=== PATIENT | male | born 1940 ===

== ENCOUNTER 2020-04-21 10:57 | Inpatient (IN) | payer MEDICARE ==
--- NOTE | 2020-04-22 07:29 | History and Physical Report ---
GP History & Physical - History of Present Illness Date of admission: 04/21/20 Date of Examination: 04/22/20 Reason for Admission: Danger to self, Danger to others, Impaired reality testing Chief Complaint: Aggression History of Present Illness: Nurse Admission note: It was reported, pt had aggressive behavior toward step son, carrying knives around and had increased confusion. pt had increase agitation and aggressive behavior after his fell and broke her hip. pt unable to care for himself Description of failure of outpatient attempts at stabilization in previous setting list behavior and medication trials: [ After his required surgery for broken hip, pt was living at home alone and unable to care for himself safely. It was reported pt was eating cat food and attempting to drive a car. Behaviors and assessment findings upon admission: [pt admitted to the unit A&O to self, confused and disorganized. pt scored 10/30 on his MM. Upon arrival, pt immediately started exit seeking and looking for his and his mother. When asked what brings you to [facility], pt states "I'm here with my mom". pt has mild bruising to his lt eye w/ lt eye redness noted from a previous fall before he came to our facility, skin is otherwise intact. At this time, pt's gait is steady, but he is a high falls risk R/t previous fall w/in last 3 months, yellow armband has been applied. v/s stable, redirection given frequently, close monitoring initiated. HPI Patient is retired 80-year-old male with medical history of dementia who was admitted for dementia with behavioral disturbances after he was seen at home currently lives around with increased confusion and agitation and aggressive behavior. Patient states he does not remember what I observe that he used to do, reports having 3 kids and 1 of them is currently Dr. lives in [facility]. Patient reports being forgetful and not remembering details of event that happened, I informed patient he has been diagnosed with dementia and sometimes may have moments of clarity as sometimes he may not and can also be aggressive towards familial faces whom he may think her strangers. Patient asked me what causes dementia and if diet contributed to it because he works out almost every day and has no medical problems. Patient states he feels pretty well today, says he likes to exercise, endorses sleeping in just like a baby and reports good appetite and that he is currently hungry at the moment ready for breakfast. Patient says I have no guns or weapons but I do have knifes at home PAST PSYCHIATRIC HISTORY: Diagnoses: Dementia Suicide attempts or Self-harm behavior: Yes recent episode Prior psychiatric hospitalizations: noen reported Substance Abuse history: none reported Previous psychiatric medications tried: none reported Outpatient treatment: none reported PAST MEDICAL HISTORY: none reported Family Psychiatric History: None reported or documented SOCIAL HISTORY Marital Status: Living Arrangements: Lives at home Employment Status: retired Access to guns/weapons: Patient says I have no guns or weapons but I do have knifes at home Education:Part college History of Abuse: none reported Legal History: none reported REVIEW OF SYSTEMS Constitutional: Negative for weight loss ENT: Negative for stridor Respiratory: Negative for cough or hemoptysis All other systems reviewed and are negative MENTAL STATUS EXAMINATION General Appearance and Behavior: Age appropriate, good hygiene, wearing appropriate clothes, lying in bed, good eye contact, cooperative polite with questioning. Cooperation: Participating/engaged Psychomotor Behavior: unremarkable and within normal limits Mood: Good Affect and affective range: congruent with mood Thought Process: Fluent/Logical Thought Content: Within reality Speech: Normal volume, Regular rate and rhythm Intellectual Functioning: Average Suicidal Ideation: Denies SI Homicidal Ideation: Denies HI Impulse Control: Impaired Insight and Judgment: Limited insight and judgment Memory: Poor with intermittent perioid of luciditiy Attention: Normal Orientation: Alert, oriented Diagnoses: Assessment and Plan - Psychiatric problem (1) Dementia with behavioral disturbance Current Visit: Yes Status: Acute Treatment Plan Patient started on risperidone Patient will be admitted for inpatient psychiatric evaluation, medication adjustment and close monitoring The patient's behavior, mood, sleep and appetite will be closely monitored. Patient will be enrolled in individual and group therapeutic sessions and encouraged to attend. Patient will be provided with a safe and structured environment. Patient's physical health needs will be addressed by the Hospitalist. Hospitalist Consulted Labs including CBC, CMP, Lipid profile and Hemoglobin A1C ordered Social Assessment will be completed and the Animal Services Officer will work with patient and family to ensure a suitable and safe disposition Medication adjustment will be made as clinically indicated Usual Wellness Sikhism/Preservation: - Start Trazodone 50 mg po QHS & 50 mg po QHS PRN between 10 PM & 2 AM for insomnia - Start Melatonin 5 mg po QHS to promote circadian rhythm - Start [place]-3 for brain health, reduce impulsivity, and as adjunctive treatment for mood disorder, continue upon discharge given overall benefits. - Start B1 prophylaxis with 200 mg po for 5 days The patient agreed on the treatment plan, understood the risk, benefit, alternative treatment, potential consequence of no treatment, and gave informed consent. Initial Certification This is an acknowledgement statement that RAJINDER JUNE is a 80 year old M who requires inpatient psychiatric admission for treatment which could reasonably be expected to improve the patient's condition for Estimated period of time patient will need to remain in the hospital: [7 ] Plan for post-hospital care: [ outpt] Legal Status: Voluntary Patient Problems: Current Active Problems Dementia with behavioral disturbance (Acute) Reaction to Hospitalization: Accepting Medications and Allergies Allergies Allergy/AdvReac Type Severity Reaction Status Date / Time No Known Allergies Allergy Verified 04/21/20 11:22 Results - Results Labs/Vitals: Laboratory Last Values POC Glucose 108 (70-105) H 04/21/20 16:03 Last Vital Signs Temp 98.2 F 04/21/20 22:00 Pulse 82 04/21/20 22:00 Resp 20 04/21/20 22:00 BP 127/75 04/21/20 22:00 Pulse Ox 98 04/21/20 22:00 Physical Examination - Constitutional Vitals: Vital Signs Temp Pulse Resp BP Pulse Ox 98.2 F 82 20 127/75 98 04/21/20 22:00 04/21/20 22:00 04/21/20 22:00 04/21/20 22:00 04/21/20 22:00 Temperature -Last 24 Hours Temperature 98.2 F Temperature 98.3 F Mental Status Exam - Vital signs Last Vital Signs Temp 98.2 F 04/21/20 22:00 Pulse 82 04/21/20 22:00 Resp 20 04/21/20 22:00 BP 127/75 04/21/20 22:00 Pulse Ox 98 04/21/20 22:00 Assessment and Plan - Psychiatric problem (1) Dementia with behavioral disturbance Current Visit: Yes Status: Acute Physician Certification - Certification Statement Physician Certification Statement: This is an acknowledgement statement that RAJINDER JUNE is a 80 year old M who requires inpatient psychiatric admission for treatment which could reasonably be expected to improve the patient's condition for Estimated period of time patient will need to remain in the hospital: [ ] Plan for post-hospital care: [ ]
[2020-04-22] MEDS: OMEGA-3 FATTY ACIDS/FISH OIL 1 GRAM CAP PO SCH ×2 (11:35→23:01)
[2020-04-22] MEDS: risperiDONE 0.25 MG TAB PO SCH ×2 (11:36→23:01)
--- NOTE | 2020-04-22 18:38 | Consultation ---
History of Present Illness - Reason for Consult Consult date: 04/22/20 Medical consult Requesting physician: ASHUTOSH ACEVEDO - History of Present Illness Patient was admitted to inpatient psych for aggressive behavior danger to self and danger to others Hospitalist service was requested for medical consult As seen and examined the patient Patient denies any medical problems denies diabetes, hypertension or coronary artery disease Denies taking any medications at home The time of my evaluation denies chest pain or shortness of breath, denies headache or dizziness Denies nausea vomiting or abdominal pain Past History Past Medical History: denies: diabetes, hypertension Past Surgical History: denies: No surgical history Social history: lives with family. denies: smoking, prescription drug abuse Family history: denies: no significant family history Medications and Allergies Allergies Allergy/AdvReac Type Severity Reaction Status Date / Time No Known Allergies Allergy Verified 04/21/20 11:22 Home Medications Medication Instructions Recorded Confirmed Last Taken Type Melatonin [Melatonin 5MG CAP] 5 mg PO PRN PRN 04/22/20 04/22/20 2 Days Ago History ~04/20/20 5 mg Active Meds: Active Medications Fish Oil (Fish Oil) 2,000 mg PO BID [facility] Last Admin: 04/22/20 11:35 Dose: 2,000 mg Documented by: Risperidone (Risperdal) 0.5 mg PO BID [facility] Last Admin: 04/22/20 11:36 Dose: 0.5 mg Documented by: Trazodone HCl (Desyrel) 50 mg PO QHS [facility] Review of Systems Constitutional: no weight loss, no weight gain, no fever, no chills Ears, nose, mouth and throat: no nasal congestion, no nasal discharge Cardiovascular: no chest pain, no orthopnea Respiratory: no cough with sputum, no shortness of breath Gastrointestinal: no nausea, no vomiting Genitourinary Male: no dysuria, no hematuria Musculoskeletal: no myalgias, no arthritis Integumentary: no rash, no lesions Neurological: no weakness, no numbness Psychiatric: other (Aggressive behavior), no anxiety, no depression Endocrine: no cold intolerance, no heat intolerance Hematologic/Lymphatic: no easy bruising, no easy bleeding Allergic/Immunologic: no urticaria, no allergic rhinitis Exam - Constitutional Vitals: Temp Pulse Resp BP Pulse Ox 97.3 F L 61 20 122/60 98 04/22/20 08:28 04/22/20 08:28 04/22/20 08:28 04/22/20 08:28 04/21/20 22:00 General appearance: Present: no acute distress, well-nourished - EENT Eyes: Present: PERRL, EOM intact - Neck Neck: Present: supple, normal ROM - Respiratory Respiratory effort: normal Respiratory: bilateral: diminished, negative: rales, rhonchi, wheezing - Cardiovascular Rhythm: regular Heart Sounds: Present: S1 & S2 - Extremities Extremities: no ischemia, No edema - Abdominal General gastrointestinal: Present: soft, non-tender, non-distended, normal bowel sounds - Integumentary Integumentary: Present: clear, warm - Musculoskeletal Musculoskeletal: strength equal bilaterally - Psychiatric Psychiatric: appropriate mood/affect, cooperative - Neurologic Neurologic: moves all extremities Results - Labs CBC & Chem 7: 04/23/20 04:53 04/23/20 04:53 Assessment and Plan --Dementia; management per psych --History of suicidal attempt harmful behavior; management per psych --DVT prophylaxis; SCDs while resting --Full CODE STATUS Continue current management Patient has no medical conditions/illness Thank you for this consultation We will follow the patient along with you as needed basis
[2020-04-22] MEDS: traZODone 50 MG TAB PO SCH (23:01)
[2020-04-23 05:18] LABS: Hematocrit 43.5 % (35.5-45.6); Hemoglobin 14.2 gm/dl (11.8-15.2); Mean Corpuscular HGB Conc 33 % (32-34); Mean Corpuscular Volume 94 fl (84-94); Platelet Count 626 K/mm3 (140-440); Red Blood Count 4.65 M/mm3 (3.65-5.03); Red Cell Distribution Width 13.7 % (13.2-15.2)
[2020-04-23 05:47] LABS: Alanine Aminotransferase 15 units/L (7-56); Albumin 3.8 g/dL (3.9-5); BUN/Creatinine Ratio 24; Blood Urea Nitrogen 22 mg/dL (9-20); Calcium 8.9 mg/dL (8.4-10.2); Hemolysis Index 3
[2020-04-23 06:27] LABS: Chol/HDL Ratio 3.71 %; HDL Cholesterol 45 mg/dL (40-59); LDL Cholesterol,Direct 121 mg/dL (50-130)
--- NOTE | 2020-04-23 07:22 | Progress Note ---
Subjective Date of service: 04/23/20 Principal diagnosis: (1) Dementia with behavioral disturbance Subjective Comment: Nurse Note: Pt is more calm this shift, still confused and paces about hallway occasionally, pt compliant with medications, and group, eat 100% meals. Pt interacting well with selected peers, no distress noted, will continue to monitor. PSYCH HPI Patient seen this AM and interviewed by me in the room, was seen resting comfortably when I walked in. Patient alert to verbal stimuli, reports not feeling good this AM, says his having a Headache and also had a rough night with poor sleep. Patient endorses good appetite, denies hearing voices or seeing things at night. Reason for continuing inpatient psychiatric hospitalization: Patient pacing and disorganized as reported by nurses. Patient has never been on antipsychotics before, will need to be titrated slowly and observe for mood stability inpatient REVIEW OF SYSTEMS Constitutional: Negative for weight loss ENT: Negative for stridor Respiratory: Negative for cough or hemoptysis All other systems reviewed and are negative MENTAL STATUS EXAMINATION General Appearance and Behavior: Age appropriate, good hygiene, wearing appropriate clothes, lying in bed, good eye contact, cooperative polite with questioning. Cooperation: Participating/engaged Psychomotor Behavior: unremarkable and within normal limits Mood: not good Affect and affective range: congruent with mood Thought Process: Fluent/Logical Thought Content: Within reality Speech: Normal volume, Regular rate and rhythm Intellectual Functioning: Average Suicidal Ideation: Denies SI Homicidal Ideation: Denies HI Impulse Control: Impaired Insight and Judgment: Limited insight and judgment Memory: Poor with intermittent perioid of luciditiy Attention: Normal Orientation: Alert, oriented Diagnoses: Assessment and Plan - Psychiatric problem (1) Dementia with behavioral disturbance Current Visit: Yes Status: Acute Treatment Plan Patient started on risperidone yesterday will titrate up slowly and observe for dose response. Patient on Melatonin YAHIR 5mg for improved sleep. Further medication adjustment to be made as indicated Patient will be admitted for inpatient psychiatric evaluation, medication adjustment and close monitoring The patient's behavior, mood, sleep and appetite will be closely monitored. Patient will be enrolled in individual and group therapeutic sessions and encouraged to attend. Patient will be provided with a safe and structured environment. Patient's physical health needs will be addressed by the Hospitalist. Hospitalist Consulted Labs including CBC, CMP, Lipid profile and Hemoglobin A1C ordered Social Assessment will be completed and the Body Shop Floorperson will work with patient and family to ensure a suitable and safe disposition Medication adjustment will be made as clinically indicated Usual Wellness Mormon/Preservation: - Start Trazodone 50 mg po QHS & 50 mg po QHS PRN between 10 PM & 2 AM for insomnia - Start Melatonin 5 mg po QHS to promote circadian rhythm - Start [place]-3 for brain health, reduce impulsivity, and as adjunctive treatment for mood disorder, continue upon discharge given overall benefits. - Start B1 prophylaxis with 200 mg po for 5 days The patient agreed on the treatment plan, understood the risk, benefit, alternative treatment, potential consequence of no treatment, and gave informed consent. Initial Certification This is an acknowledgement statement that RAJINDER JUNE is a 80 year old M who requires inpatient psychiatric admission for treatment which could reasonably be expected to improve the patient's condition for Estimated period of time patient will need to remain in the hospital: [7 ] Plan for post-hospital care: [outpt] Assessment and Plan - Patient Problems (1) Dementia with behavioral disturbance Current Visit: Yes Status: Acute Medications and Allergies Allergies Allergy/AdvReac Type Severity Reaction Status Date / Time No Known Allergies Allergy Verified 04/21/20 11:22 Home Medications Medication Instructions Recorded Confirmed Last Taken Type Melatonin [Melatonin 5MG CAP] 5 mg PO PRN PRN 04/22/20 04/22/20 2 Days Ago History ~04/20/20 5 mg Active Meds: Active Medications Fish Oil (Fish Oil) 2,000 mg PO BID [facility] Last Admin: 04/22/20 23:01 Dose: 2,000 mg Documented by: Risperidone (Risperdal) 0.5 mg PO BID [facility] Last Admin: 04/22/20 23:01 Dose: 0.5 mg Documented by: Trazodone HCl (Desyrel) 50 mg PO QHS [facility] Last Admin: 04/22/20 23:01 Dose: 50 mg Documented by: Results - Results Labs/Vitals: Laboratory Last Values WBC 6.8 K/mm3 (4.5-11.0) 04/23/20 04:53 RBC 4.65 M/mm3 (3.65-5.03) 04/23/20 04:53 Hgb 14.2 gm/dl (11.8-15.2) 04/23/20 04:53 Hct 43.5 % (35.5-45.6) 04/23/20 04:53 MCV 94 fl (84-94) 04/23/20 04:53 MCH 31 pg (28-32) 04/23/20 04:53 MCHC 33 % (32-34) 04/23/20 04:53 RDW 13.7 % (13.2-15.2) 04/23/20 04:53 Plt Count 626 K/mm3 (140-440) H 04/23/20 04:53 [place] % (Auto) Flake Cutter Operator 04/23/20 04:53 Sodium 140 mmol/L (137-145) 04/23/20 04:53 Potassium 4.6 mmol/L (3.6-5.0) 04/23/20 04:53 Chloride 106.0 mmol/L (98-107) 04/23/20 04:53 Carbon Dioxide 26 mmol/L (22-30) 04/23/20 04:53 Anion Gap 13 mmol/L 04/23/20 04:53 BUN 22 mg/dL (9-20) H 04/23/20 04:53 Creatinine 0.9 mg/dL (0.8-1.5) 04/23/20 04:53 Estimated GFR > 60 ml/min 04/23/20 04:53 BUN/Creatinine Ratio 24 % 04/23/20 04:53 Glucose 113 mg/dL (75-100) H 04/23/20 04:53 POC Glucose 108 (70-105) H 04/21/20 16:03 Hemoglobin A1c 5.4 % (4-6) 04/23/20 04:53 Calcium 8.9 mg/dL (8.4-10.2) 04/23/20 04:53 Total Bilirubin 0.60 mg/dL (0.1-1.2) 04/23/20 04:53 AST 15 units/L (5-40) 04/23/20 04:53 ALT 15 units/L (7-56) 04/23/20 04:53 Alkaline Phosphatase 50 units/L (35-129) 04/23/20 04:53 Total Protein 5.9 g/dL (6.3-8.2) L 04/23/20 04:53 Albumin 3.8 g/dL (3.9-5) L 04/23/20 04:53 Albumin/Globulin Ratio 1.8 % 04/23/20 04:53 Triglycerides 67 mg/dL (2-149) 04/23/20 04:53 Cholesterol 167 mg/dL (50-199) 04/23/20 04:53 LDL Cholesterol Direct 121 mg/dL (50-130) 04/23/20 04:53 HDL Cholesterol 45 mg/dL (40-59) 04/23/20 04:53 Cholesterol/HDL Ratio 3.71 % 04/23/20 04:53 TSH 2.490 mlU/mL (0.270-4.200) 04/23/20 04:53 Thyroxine (T4) 7.8 ug/dL (4.0-12.0) 04/23/20 04:53 Last Vital Signs Temp 97.3 F L 04/22/20 08:28 Pulse 61 04/22/20 08:28 Resp 20 04/22/20 08:28 BP 122/60 04/22/20 08:28 Pulse Ox 98 04/21/20 22:00
[2020-04-23 07:33] LABS: Anisocytosis 1+; Basophils % (Manual) 0 % (0.0-1.8); Total Cells Counted 100
[2020-04-23 07:34] LABS: Platelet Estimate Consistent w Auto
[2020-04-23] MEDS: OMEGA-3 FATTY ACIDS/FISH OIL 1 GRAM CAP PO SCH ×2 (11:07→21:27)
[2020-04-23] MEDS: risperiDONE 0.25 MG TAB PO SCH ×2 (11:08→21:27)
[2020-04-23] MEDS: traZODone 50 MG TAB PO SCH (21:27)
[2020-04-23] MEDS: MELATONIN 5 MG TAB PO SCH (21:27)
--- NOTE | 2020-04-24 09:51 | Progress Note ---
Subjective Date of service: 04/24/20 Principal diagnosis: (1) Dementia with behavioral disturbance Subjective Comment: The patient's medical record was reviewed and the patient's progress was discussed with the nursing staff. The nurse note states the patient slept for 6hrs during the night, confused, got up several times asking for his mother. During my interview with the patient this morning, he is lying in bed, awake. He is confused. He is irritable. He says he feels "terrible." The patient says "this is the most miserable time of my life." He then says, "I don't know where my is or my check." He says "nothing is working out." The patient denies hallucinations of any kind. He also denies SI/HI. Reason for continued inpatient treatment: The patient irritable and paces, and is unable to care for himself. Will continue to stabilize and plan for a safe discharge. REVIEW OF SYSTEMS Constitutional: Negative for weight loss ENT: Negative for stridor Respiratory: Negative for cough or hemoptysis All other systems reviewed and are negative MENTAL STATUS EXAMINATION General Appearance: Dressed appropriately Behavior: Irritable, cooperative Mood: "terrible" Affect and affective range: Restricted Speech: Normal tone and pace Thought Process: Impaired Thought Content Suicidal Ideation: Denies SI Homicidal Ideation: Denies HI Hallucinations: Denies Delusions: None elicited Insight and Judgment: Limited insight and judgment Memory/Cognition: Impaired Assessment (1) Dementia with behavioral disturbance Current Visit: Yes Status: Acute Treatment Plan Patient will be admitted for inpatient psychiatric evaluation, medication adjustment and close monitoring The patient's behavior, mood, sleep and appetite will be closely monitored. Patient will be enrolled in individual and group therapeutic sessions and encouraged to attend. Patient will be provided with a safe and structured environment. Patient's physical health needs will be addressed by the Hospitalist. Hospitalist Consulted Labs including CBC, CMP, Lipid profile and Hemoglobin A1C ordered Social Assessment will be completed and the Water Safety Teacher will work with patient and family to ensure a suitable and safe disposition Medication adjustment will be made as clinically indicated Usual Wellness [place]/Preservation: - Start Trazodone 50 mg po QHS & 50 mg po QHS PRN between 10 PM & 2 AM for insomnia - Start Melatonin 5 mg po QHS to promote circadian rhythm - Start [place]-3 for brain health, reduce impulsivity, and as adjunctive treatment for mood disorder, continue upon discharge given overall benefits. - Start B1 prophylaxis with 200 mg po for 5 days The patient agreed on the treatment plan, understood the risk, benefit, alternative treatment, potential consequence of no treatment, and gave informed consent. Estimated period of time patient will need to remain in the hospital: [5] Plan for post-hospital care: [outpt] Medications and Allergies Allergies Allergy/AdvReac Type Severity Reaction Status Date / Time No Known Allergies Allergy Verified 04/21/20 11:22 Home Medications Medication Instructions Recorded Confirmed Last Taken Type Melatonin [Melatonin 5MG CAP] 5 mg PO PRN PRN 04/22/20 04/22/20 2 Days Ago History ~04/20/20 5 mg Active Meds: Active Medications Fish Oil (Fish Oil) 2,000 mg PO BID [facility] Last Admin: 04/23/20 21:27 Dose: 2,000 mg Documented by: Melatonin (Melatonin) 5 mg PO QHS [facility] Last Admin: 04/23/20 21:27 Dose: 5 mg Documented by: Risperidone (Risperdal) 0.5 mg PO BID [facility] Last Admin: 04/23/20 21:27 Dose: 0.5 mg Documented by: Trazodone HCl (Desyrel) 50 mg PO QHS [facility] Last Admin: 04/23/20 21:27 Dose: 50 mg Documented by: Results - Results Labs/Vitals: Laboratory Last Values WBC 6.8 K/mm3 (4.5-11.0) 04/23/20 04:53 RBC 4.65 M/mm3 (3.65-5.03) 04/23/20 04:53 Hgb 14.2 gm/dl (11.8-15.2) 04/23/20 04:53 Hct 43.5 % (35.5-45.6) 04/23/20 04:53 MCV 94 fl (84-94) 04/23/20 04:53 MCH 31 pg (28-32) 04/23/20 04:53 MCHC 33 % (32-34) 04/23/20 04:53 RDW 13.7 % (13.2-15.2) 04/23/20 04:53 Plt Count 626 K/mm3 (140-440) H 04/23/20 04:53 [place] % (Auto) Loan Servicing Officer 04/23/20 04:53 Add Manual Diff Complete 04/23/20 04:53 Total Counted 100 04/23/20 04:53 Seg Neuts % (Manual) 75.0 % (40.0-70.0) H 04/23/20 04:53 Band Neutrophils % 0 % 04/23/20 04:53 Lymphocytes % (Manual) 11.0 % (13.4-35.0) L 04/23/20 04:53 Reactive Lymphs % (Man) 0 % 04/23/20 04:53 Monocytes % (Manual) 8.0 % (0.0-7.3) H 04/23/20 04:53 Eosinophils % (Manual) 6.0 % (0.0-4.3) H 04/23/20 04:53 Basophils % (Manual) 0 % (0.0-1.8) 04/23/20 04:53 Metamyelocytes % 0 % 04/23/20 04:53 Myelocytes % 0 % 04/23/20 04:53 Promyelocytes % 0 % 04/23/20 04:53 Blast Cells % 0 % 04/23/20 04:53 Nucleated RBC % Not Reportable 04/23/20 04:53 Seg Neutrophils # Man 5.1 K/mm3 (1.8-7.7) 04/23/20 04:53 Band Neutrophils # 0.0 K/mm3 04/23/20 04:53 Lymphocytes # (Manual) 0.7 K/mm3 (1.2-5.4) L 04/23/20 04:53 Abs React Lymphs (Man) 0.0 K/mm3 04/23/20 04:53 Monocytes # (Manual) 0.5 K/mm3 (0.0-0.8) 04/23/20 04:53 Eosinophils # (Manual) 0.4 K/mm3 (0.0-0.4) 04/23/20 04:53 Basophils # (Manual) 0.0 K/mm3 (0.0-0.1) 04/23/20 04:53 Metamyelocytes # 0.0 K/mm3 04/23/20 04:53 Myelocytes # 0.0 K/mm3 04/23/20 04:53 Promyelocytes # 0.0 K/mm3 04/23/20 04:53 Blast Cells # 0.0 K/mm3 04/23/20 04:53 WBC Morphology Not Reportable 04/23/20 04:53 Hypersegmented Neuts Not Reportable 04/23/20 04:53 Hyposegmented Neuts Not Reportable 04/23/20 04:53 Hypogranular Neuts Not Reportable 04/23/20 04:53 Smudge Cells Not Reportable 04/23/20 04:53 Toxic Granulation Not Reportable 04/23/20 04:53 Toxic Vacuolation Not Reportable 04/23/20 04:53 Dohle Bodies Not Reportable 04/23/20 04:53 Pelger-Huet Anomaly Not Reportable 04/23/20 04:53 Kyle Rods Not Reportable 04/23/20 04:53 Platelet Estimate Consistent w auto 04/23/20 04:53 Clumped Platelets Not Reportable 04/23/20 04:53 Plt Clumps, EDTA Not Reportable 04/23/20 04:53 Large Platelets Not Reportable 04/23/20 04:53 Giant Platelets Not Reportable 04/23/20 04:53 Platelet Satelliting Not Reportable 04/23/20 04:53 Plt Morphology Comment Not Reportable 04/23/20 04:53 RBC Morphology Not Reportable 04/23/20 04:53 Dimorphic RBCs Not Reportable 04/23/20 04:53 Polychromasia Not Reportable 04/23/20 04:53 Hypochromasia Not Reportable 04/23/20 04:53 Poikilocytosis Not Reportable 04/23/20 04:53 Anisocytosis 1+ 04/23/20 04:53 Microcytosis Not Reportable 04/23/20 04:53 Macrocytosis Not Reportable 04/23/20 04:53 Spherocytes Not Reportable 04/23/20 04:53 Pappenheimer Bodies Not Reportable 04/23/20 04:53 Sickle Cells Not Reportable 04/23/20 04:53 Target Cells Not Reportable 04/23/20 04:53 Tear Drop Cells Not Reportable 04/23/20 04:53 Ovalocytes Not Reportable 04/23/20 04:53 Helmet Cells Not Reportable 04/23/20 04:53 Mcgarry-[place] Bodies Not Reportable 04/23/20 04:53 [place] Rings Not Reportable 04/23/20 04:53 Pablo Cells Not Reportable 04/23/20 04:53 Bite Cells Not Reportable 04/23/20 04:53 Crenated Cell Not Reportable 04/23/20 04:53 Elliptocytes Not Reportable 04/23/20 04:53 Acanthocytes (Spur) Not Reportable 04/23/20 04:53 Rouleaux Not Reportable 04/23/20 04:53 Hemoglobin C Crystals Not Reportable 04/23/20 04:53 Schistocytes Not Reportable 04/23/20 04:53 Malaria parasites Not Reportable 04/23/20 04:53 Willie Bodies Not Reportable 04/23/20 04:53 Hem Pathologist Commnt No 04/23/20 04:53 Sodium 140 mmol/L (137-145) 04/23/20 04:53 Potassium 4.6 mmol/L (3.6-5.0) 04/23/20 04:53 Chloride 106.0 mmol/L (98-107) 04/23/20 04:53 Carbon Dioxide 26 mmol/L (22-30) 04/23/20 04:53 Anion Gap 13 mmol/L 04/23/20 04:53 BUN 22 mg/dL (9-20) H 04/23/20 04:53 Creatinine 0.9 mg/dL (0.8-1.5) 04/23/20 04:53 Estimated GFR > 60 ml/min 04/23/20 04:53 BUN/Creatinine Ratio 24 % 04/23/20 04:53 Glucose 113 mg/dL (75-100) H 04/23/20 04:53 POC Glucose 108 (70-105) H 04/21/20 16:03 Hemoglobin A1c 5.4 % (4-6) 04/23/20 04:53 Calcium 8.9 mg/dL (8.4-10.2) 04/23/20 04:53 Total Bilirubin 0.60 mg/dL (0.1-1.2) 04/23/20 04:53 AST 15 units/L (5-40) 04/23/20 04:53 ALT 15 units/L (7-56) 04/23/20 04:53 Alkaline Phosphatase 50 units/L (35-129) 04/23/20 04:53 Total Protein 5.9 g/dL (6.3-8.2) L 04/23/20 04:53 Albumin 3.8 g/dL (3.9-5) L 04/23/20 04:53 Albumin/Globulin Ratio 1.8 % 04/23/20 04:53 Triglycerides 67 mg/dL (2-149) 04/23/20 04:53 Cholesterol 167 mg/dL (50-199) 04/23/20 04:53 LDL Cholesterol Direct 121 mg/dL (50-130) 04/23/20 04:53 HDL Cholesterol 45 mg/dL (40-59) 04/23/20 04:53 Cholesterol/HDL Ratio 3.71 % 04/23/20 04:53 TSH 2.490 mlU/mL (0.270-4.200) 04/23/20 04:53 Thyroxine (T4) 7.8 ug/dL (4.0-12.0) 04/23/20 04:53 Last Vital Signs Temp 98.1 F 04/23/20 22:00 Pulse 58 L 04/23/20 22:00 Resp 18 04/23/20 22:00 BP 127/77 04/23/20 22:00 Pulse Ox 99 04/23/20 22:00
[2020-04-24] MEDS: risperiDONE 0.25 MG TAB PO SCH ×2 (10:38→21:22)
[2020-04-24] MEDS: OMEGA-3 FATTY ACIDS/FISH OIL 1 GRAM CAP PO SCH ×2 (10:38→21:22)
[2020-04-24] MEDS: traZODone 50 MG TAB PO SCH (21:22)
[2020-04-24] MEDS: MELATONIN 5 MG TAB PO SCH (21:22)
[2020-04-25] MEDS: OMEGA-3 FATTY ACIDS/FISH OIL 1 GRAM CAP PO SCH ×2 (09:14→21:05)
[2020-04-25] MEDS: risperiDONE 0.25 MG TAB PO SCH (09:14)
--- NOTE | 2020-04-25 09:28 | Progress Note ---
Subjective Date of service: 04/25/20 Principal diagnosis: (1) Dementia with behavioral disturbance Subjective Comment: The patient's medical record was reviewed and the patient's progress was discussed with the nursing staff. The nurse note states the patient is confused, disorganized, paces the unit. During my interview with the patient this morning, he is lying in bed, awake. He is confused. He says his mood is "good." The patient denies SI/HI or hallucinations of any kind. She says she slept "well." Reason for continued inpatient treatment: The patient irritable and paces, and is unable to care for himself. Will continue to stabilize and plan for a safe discharge. REVIEW OF SYSTEMS Constitutional: Negative for weight loss ENT: Negative for stridor Respiratory: Negative for cough or hemoptysis All other systems reviewed and are negative MENTAL STATUS EXAMINATION General Appearance: Dressed appropriately Behavior: Irritable, cooperative Mood: "terrible" Affect and affective range: Restricted Speech: Normal tone and pace Thought Process: Impaired Thought Content Suicidal Ideation: Denies SI Homicidal Ideation: Denies HI Hallucinations: Denies Delusions: None elicited Insight and Judgment: Limited insight and judgment Memory/Cognition: Impaired Assessment (1) Dementia with behavioral disturbance Current Visit: Yes Status: Acute Treatment Plan Patient will be admitted for inpatient psychiatric evaluation, medication adjustment and close monitoring The patient's behavior, mood, sleep and appetite will be closely monitored. Patient will be enrolled in individual and group therapeutic sessions and encouraged to attend. Patient will be provided with a safe and structured environment. Patient's physical health needs will be addressed by the Hospitalist. Hospitalist Consulted Labs including CBC, CMP, Lipid profile and Hemoglobin A1C ordered Social Assessment will be completed and the Weigher Packing will work with patient and family to ensure a suitable and safe disposition Medication adjustment will be made as clinically indicated Increased Risperidone 1mg po BID Usual Wellness [place]/Preservation: - Start Trazodone 50 mg po QHS - Start Melatonin 5 mg po QHS to promote circadian rhythm The patient agreed on the treatment plan, understood the risk, benefit, alternative treatment, potential consequence of no treatment, and gave informed consent. Estimated period of time patient will need to remain in the hospital: [3] Plan for post-hospital care: [outpt] Medications and Allergies Allergies Allergy/AdvReac Type Severity Reaction Status Date / Time No Known Allergies Allergy Verified 04/21/20 11:22 Home Medications Medication Instructions Recorded Confirmed Last Taken Type Melatonin [Melatonin 5MG CAP] 5 mg PO PRN PRN 04/22/20 04/22/20 2 Days Ago History ~04/20/20 5 mg Active Meds: Active Medications Fish Oil (Fish Oil) 2,[address] [facility] Last Admin: 04/25/20 09:14 Dose: 2,000 mg Documented by: Melatonin (Melatonin) [address] [facility] Last Admin: 04/24/20 21:22 Dose: 5 mg Documented by: Risperidone (Risperdal) 0.[address] [facility] Last Admin: 04/25/20 09:14 Dose: 0.5 mg Documented by: Trazodone HCl (Desyrel) [address] [facility] Last Admin: 04/24/20 21:22 Dose: 50 mg Documented by: Results - Results Labs/Vitals: Laboratory Last Values WBC 6.8 K/mm3 (4.5-11.0) 04/23/20 04:53 RBC 4.65 M/mm3 (3.65-5.03) 04/23/20 04:53 Hgb 14.2 gm/dl (11.8-15.2) 04/23/20 04:53 Hct 43.5 % (35.5-45.6) 04/23/20 04:53 MCV 94 fl (84-94) 04/23/20 04:53 MCH 31 pg (28-32) 04/23/20 04:53 MCHC 33 % (32-34) 04/23/20 04:53 RDW 13.7 % (13.2-15.2) 04/23/20 04:53 Plt Count 626 K/mm3 (140-440) H 04/23/20 04:53 [place] % (Auto) [employer] Furnace Laborer 04/23/20 04:53 Add Manual Diff Complete 04/23/20 04:53 Total Counted 100 04/23/20 04:53 Seg Neuts % (Manual) 75.0 % (40.0-70.0) H 04/23/20 04:53 Band Neutrophils % 0 % 04/23/20 04:53 Lymphocytes % (Manual) 11.0 % (13.4-35.0) L 04/23/20 04:53 Reactive Lymphs % (Man) 0 % 04/23/20 04:53 Monocytes % (Manual) 8.0 % (0.0-7.3) H 04/23/20 04:53 Eosinophils % (Manual) 6.0 % (0.0-4.3) H 04/23/20 04:53 Basophils % (Manual) 0 % (0.0-1.8) 04/23/20 04:53 Metamyelocytes % 0 % 04/23/20 04:53 Myelocytes % 0 % 04/23/20 04:53 Promyelocytes % 0 % 04/23/20 04:53 Blast Cells % 0 % 04/23/20 04:53 Nucleated RBC % Not Reportable 04/23/20 04:53 Seg Neutrophils # Man 5.1 K/mm3 (1.8-7.7) 04/23/20 04:53 Band Neutrophils # 0.0 K/mm3 04/23/20 04:53 Lymphocytes # (Manual) 0.7 K/mm3 (1.2-5.4) L 04/23/20 04:53 Abs React Lymphs (Man) 0.0 K/mm3 04/23/20 04:53 Monocytes # (Manual) 0.5 K/mm3 (0.0-0.8) 04/23/20 04:53 Eosinophils # (Manual) 0.4 K/mm3 (0.0-0.4) 04/23/20 04:53 Basophils # (Manual) 0.0 K/mm3 (0.0-0.1) 04/23/20 04:53 Metamyelocytes # 0.0 K/mm3 04/23/20 04:53 Myelocytes # 0.0 K/mm3 04/23/20 04:53 Promyelocytes # 0.0 K/mm3 04/23/20 04:53 Blast Cells # 0.0 K/mm3 04/23/20 04:53 WBC Morphology Not Reportable 04/23/20 04:53 Hypersegmented Neuts Not Reportable 04/23/20 04:53 Hyposegmented Neuts Not Reportable 04/23/20 04:53 Hypogranular Neuts Not Reportable 04/23/20 04:53 Smudge Cells Not Reportable 04/23/20 04:53 Toxic Granulation Not Reportable 04/23/20 04:53 Toxic Vacuolation Not Reportable 04/23/20 04:53 Dohle Bodies Not Reportable 04/23/20 04:53 Pelger-Huet Anomaly Not Reportable 04/23/20 04:53 Kyle Rods Not Reportable 04/23/20 04:53 Platelet Estimate Consistent w auto 04/23/20 04:53 Clumped Platelets Not Reportable 04/23/20 04:53 Plt Clumps, EDTA Not Reportable 04/23/20 04:53 Large Platelets Not Reportable 04/23/20 04:53 Giant Platelets Not Reportable 04/23/20 04:53 Platelet Satelliting Not Reportable 04/23/20 04:53 Plt Morphology Comment Not Reportable 04/23/20 04:53 RBC Morphology Not Reportable 04/23/20 04:53 Dimorphic RBCs Not Reportable 04/23/20 04:53 Polychromasia Not Reportable 04/23/20 04:53 Hypochromasia Not Reportable 04/23/20 04:53 Poikilocytosis Not Reportable 04/23/20 04:53 Anisocytosis 1+ 04/23/20 04:53 Microcytosis Not Reportable 04/23/20 04:53 Macrocytosis Not Reportable 04/23/20 04:53 Spherocytes Not Reportable 04/23/20 04:53 Pappenheimer Bodies Not Reportable 04/23/20 04:53 Sickle Cells Not Reportable 04/23/20 04:53 Target Cells Not Reportable 04/23/20 04:53 Tear Drop Cells Not Reportable 04/23/20 04:53 Ovalocytes Not Reportable 04/23/20 04:53 Helmet Cells Not Reportable 04/23/20 04:53 Mcgarry-[place] Bodies Not Reportable 04/23/20 04:53 [place] Rings Not Reportable 04/23/20 04:53 Pablo Cells Not Reportable 04/23/20 04:53 Bite Cells Not Reportable 04/23/20 04:53 Crenated Cell Not Reportable 04/23/20 04:53 Elliptocytes Not Reportable 04/23/20 04:53 Acanthocytes (Spur) Not Reportable 04/23/20 04:53 Rouleaux Not Reportable 04/23/20 04:53 Hemoglobin C Crystals Not Reportable 04/23/20 04:53 Schistocytes Not Reportable 04/23/20 04:53 Malaria parasites Not Reportable 04/23/20 04:53 Willie Bodies Not Reportable 04/23/20 04:53 Hem Pathologist Commnt No 04/23/20 04:53 Sodium 140 mmol/L (137-145) 04/23/20 04:53 Potassium 4.6 mmol/L (3.6-5.0) 04/23/20 04:53 Chloride 106.0 mmol/L (98-107) 04/23/20 04:53 Carbon Dioxide 26 mmol/L (22-30) 04/23/20 04:53 Anion Gap 13 mmol/L 04/23/20 04:53 BUN 22 mg/dL (9-20) H 04/23/20 04:53 Creatinine 0.9 mg/dL (0.8-1.5) 04/23/20 04:53 Estimated GFR > 60 ml/min 04/23/20 04:53 BUN/Creatinine Ratio 24 % 04/23/20 04:53 Glucose 113 mg/dL (75-100) H 04/23/20 04:53 POC Glucose 108 (70-105) H 04/21/20 16:03 Hemoglobin A1c 5.4 % (4-6) 04/23/20 04:53 Calcium 8.9 mg/dL (8.4-10.2) 04/23/20 04:53 Total Bilirubin 0.60 mg/dL (0.1-1.2) 04/23/20 04:53 AST 15 units/L (5-40) 04/23/20 04:53 ALT 15 units/L (7-56) 04/23/20 04:53 Alkaline Phosphatase 50 units/L (35-129) 04/23/20 04:53 Total Protein 5.9 g/dL (6.3-8.2) L 04/23/20 04:53 Albumin 3.8 g/dL (3.9-5) L 04/23/20 04:53 Albumin/Globulin Ratio 1.8 % 04/23/20 04:53 Triglycerides 67 mg/dL (2-149) 04/23/20 04:53 Cholesterol 167 mg/dL (50-199) 04/23/20 04:53 LDL Cholesterol Direct 121 mg/dL (50-130) 04/23/20 04:53 HDL Cholesterol 45 mg/dL (40-59) 04/23/20 04:53 Cholesterol/HDL Ratio 3.71 % 04/23/20 04:53 TSH 2.490 mlU/mL (0.270-4.200) 04/23/20 04:53 Thyroxine (T4) 7.8 ug/dL (4.0-12.0) 04/23/20 04:53 Last Vital Signs Temp 98.3 F 04/25/20 06:48 Pulse 60 04/25/20 06:48 Resp 18 04/25/20 06:48 BP 141/77 04/25/20 06:48 Pulse Ox 97 04/25/20 06:48
[2020-04-25] MEDS: risperiDONE 1 MG TAB PO SCH ×2 (10:37→21:06)
[2020-04-25] MEDS: MELATONIN 5 MG TAB PO SCH (21:05)
[2020-04-25] MEDS: traZODone 50 MG TAB PO SCH (21:05)
--- NOTE | 2020-04-26 09:10 | Progress Note ---
Subjective Date of service: 04/26/20 Principal diagnosis: (1) Dementia with behavioral disturbance Subjective Comment: The patient's medical record was reviewed and the patient's progress was discussed with the nursing staff. During my interview with the patient this morning, he is walking around in the hallway. He is dressed appropriately. He is a/o x 1. He says he's "doing well." He denies hallucinations of any kind. He also denies SI/HI. The patient says he felt "okay." He says he slept "good." Reason for continued inpatient treatment: The patient has times where he is irritable, and is unable to care for himself. Will continue to stabilize and plan for a safe discharge. REVIEW OF SYSTEMS Constitutional: Negative for weight loss ENT: Negative for stridor Respiratory: Negative for cough or hemoptysis All other systems reviewed and are negative MENTAL STATUS EXAMINATION General Appearance: Dressed appropriately Behavior: Calm and, cooperative Mood: "Okay" Affect and affective range: Restricted Speech: Normal tone and pace Thought Process: Impaired Thought Content Suicidal Ideation: Denies SI Homicidal Ideation: Denies HI Hallucinations: Denies Delusions: None elicited Insight and Judgment: Limited insight and judgment Memory/Cognition: Impaired Assessment (1) Dementia with behavioral disturbance Current Visit: Yes Status: Acute Treatment Plan Patient will be admitted for inpatient psychiatric evaluation, medication adjustment and close monitoring The patient's behavior, mood, sleep and appetite will be closely monitored. Patient will be enrolled in individual and group therapeutic sessions and encouraged to attend. Patient will be provided with a safe and structured environment. Patient's physical health needs will be addressed by the Hospitalist. Hospitalist Consulted Labs including CBC, CMP, Lipid profile and Hemoglobin A1C ordered Social Assessment will be completed and the Health Care Analyst will work with patient and family to ensure a suitable and safe disposition Medication adjustment will be made as clinically indicated Increased Risperidone 1mg po BID Yesterday No changes today Usual Wellness Jainism/Preservation: - Start Trazodone 50 mg po QHS - Start Melatonin 5 mg po QHS to promote circadian rhythm The patient agreed on the treatment plan, understood the risk, benefit, alternative treatment, potential consequence of no treatment, and gave informed consent. Estimated period of time patient will need to remain in the hospital: [3] Plan for post-hospital care: [outpatien] Medications and Allergies Allergies Allergy/AdvReac Type Severity Reaction Status Date / Time No Known Allergies Allergy Verified 04/21/20 11:22 Home Medications Medication Instructions Recorded Confirmed Last Taken Type Melatonin [Melatonin 5MG CAP] 5 mg PO PRN PRN 04/22/20 04/22/20 2 Days Ago History ~04/20/20 5 mg Active Meds: Active Medications Fish Oil (Fish Oil) 2,000 mg PO BID [facility] Last Admin: 04/25/20 21:05 Dose: 2,000 mg Documented by: Melatonin (Melatonin) 5 mg PO QHS [facility] Last Admin: 04/25/20 21:05 Dose: 5 mg Documented by: Risperidone (Risperdal) 1 mg PO BID [facility] Last Admin: 04/25/20 21:06 Dose: 1 mg Documented by: Trazodone HCl (Desyrel) 50 mg PO QHS [facility] Last Admin: 04/25/20 21:05 Dose: 50 mg Documented by: Results - Results Labs/Vitals: Laboratory Last Values WBC 6.8 K/mm3 (4.5-11.0) 04/23/20 04:53 RBC 4.65 M/mm3 (3.65-5.03) 04/23/20 04:53 Hgb 14.2 gm/dl (11.8-15.2) 04/23/20 04:53 Hct 43.5 % (35.5-45.6) 04/23/20 04:53 MCV 94 fl (84-94) 04/23/20 04:53 MCH 31 pg (28-32) 04/23/20 04:53 MCHC 33 % (32-34) 04/23/20 04:53 RDW 13.7 % (13.2-15.2) 04/23/20 04:53 Plt Count 626 K/mm3 (140-440) H 04/23/20 04:53 [place] % (Auto) Leather Flesher 04/23/20 04:53 Add Manual Diff Complete 04/23/20 04:53 Total Counted 100 04/23/20 04:53 Seg Neuts % (Manual) 75.0 % (40.0-70.0) H 04/23/20 04:53 Band Neutrophils % 0 % 04/23/20 04:53 Lymphocytes % (Manual) 11.0 % (13.4-35.0) L 04/23/20 04:53 Reactive Lymphs % (Man) 0 % 04/23/20 04:53 Monocytes % (Manual) 8.0 % (0.0-7.3) H 04/23/20 04:53 Eosinophils % (Manual) 6.0 % (0.0-4.3) H 04/23/20 04:53 Basophils % (Manual) 0 % (0.0-1.8) 04/23/20 04:53 Metamyelocytes % 0 % 04/23/20 04:53 Myelocytes % 0 % 04/23/20 04:53 Promyelocytes % 0 % 04/23/20 04:53 Blast Cells % 0 % 04/23/20 04:53 Nucleated RBC % Not Reportable 04/23/20 04:53 Seg Neutrophils # Man 5.1 K/mm3 (1.8-7.7) 04/23/20 04:53 Band Neutrophils # 0.0 K/mm3 04/23/20 04:53 Lymphocytes # (Manual) 0.7 K/mm3 (1.2-5.4) L 04/23/20 04:53 Abs React Lymphs (Man) 0.0 K/mm3 04/23/20 04:53 Monocytes # (Manual) 0.5 K/mm3 (0.0-0.8) 04/23/20 04:53 Eosinophils # (Manual) 0.4 K/mm3 (0.0-0.4) 04/23/20 04:53 Basophils # (Manual) 0.0 K/mm3 (0.0-0.1) 04/23/20 04:53 Metamyelocytes # 0.0 K/mm3 04/23/20 04:53 Myelocytes # 0.0 K/mm3 04/23/20 04:53 Promyelocytes # 0.0 K/mm3 04/23/20 04:53 Blast Cells # 0.0 K/mm3 04/23/20 04:53 WBC Morphology Not Reportable 04/23/20 04:53 Hypersegmented Neuts Not Reportable 04/23/20 04:53 Hyposegmented Neuts Not Reportable 04/23/20 04:53 Hypogranular Neuts Not Reportable 04/23/20 04:53 Smudge Cells Not Reportable 04/23/20 04:53 Toxic Granulation Not Reportable 04/23/20 04:53 Toxic Vacuolation Not Reportable 04/23/20 04:53 Dohle Bodies Not Reportable 04/23/20 04:53 Pelger-Huet Anomaly Not Reportable 04/23/20 04:53 Kyle Rods Not Reportable 04/23/20 04:53 Platelet Estimate Consistent w auto 04/23/20 04:53 Clumped Platelets Not Reportable 04/23/20 04:53 Plt Clumps, EDTA Not Reportable 04/23/20 04:53 Large Platelets Not Reportable 04/23/20 04:53 Giant Platelets Not Reportable 04/23/20 04:53 Platelet Satelliting Not Reportable 04/23/20 04:53 Plt Morphology Comment Not Reportable 04/23/20 04:53 RBC Morphology Not Reportable 04/23/20 04:53 Dimorphic RBCs Not Reportable 04/23/20 04:53 Polychromasia Not Reportable 04/23/20 04:53 Hypochromasia Not Reportable 04/23/20 04:53 Poikilocytosis Not Reportable 04/23/20 04:53 Anisocytosis 1+ 04/23/20 04:53 Microcytosis Not Reportable 04/23/20 04:53 Macrocytosis Not Reportable 04/23/20 04:53 Spherocytes Not Reportable 04/23/20 04:53 Pappenheimer Bodies Not Reportable 04/23/20 04:53 Sickle Cells Not Reportable 04/23/20 04:53 Target Cells Not Reportable 04/23/20 04:53 Tear Drop Cells Not Reportable 04/23/20 04:53 Ovalocytes Not Reportable 04/23/20 04:53 Helmet Cells Not Reportable 04/23/20 04:53 Mcgarry-[place] Bodies Not Reportable 04/23/20 04:53 [place] Rings Not Reportable 04/23/20 04:53 [place] Cells Not Reportable 04/23/20 04:53 Bite Cells Not Reportable 04/23/20 04:53 Crenated Cell Not Reportable 04/23/20 04:53 Elliptocytes Not Reportable 04/23/20 04:53 Acanthocytes (Spur) Not Reportable 04/23/20 04:53 Rouleaux Not Reportable 04/23/20 04:53 Hemoglobin C Crystals Not Reportable 04/23/20 04:53 Schistocytes Not Reportable 04/23/20 04:53 Malaria parasites Not Reportable 04/23/20 04:53 Willie Bodies Not Reportable 04/23/20 04:53 Hem Pathologist Commnt No 04/23/20 04:53 Sodium 140 mmol/L (137-145) 04/23/20 04:53 Potassium 4.6 mmol/L (3.6-5.0) 04/23/20 04:53 Chloride 106.0 mmol/L (98-107) 04/23/20 04:53 Carbon Dioxide 26 mmol/L (22-30) 04/23/20 04:53 Anion Gap 13 mmol/L 04/23/20 04:53 BUN 22 mg/dL (9-20) H 04/23/20 04:53 Creatinine 0.9 mg/dL (0.8-1.5) 04/23/20 04:53 Estimated GFR > 60 ml/min 04/23/20 04:53 BUN/Creatinine Ratio 24 % 04/23/20 04:53 Glucose 113 mg/dL (75-100) H 04/23/20 04:53 POC Glucose 108 (70-105) H 04/21/20 16:03 Hemoglobin A1c 5.4 % (4-6) 04/23/20 04:53 Calcium 8.9 mg/dL (8.4-10.2) 04/23/20 04:53 Total Bilirubin 0.60 mg/dL (0.1-1.2) 04/23/20 04:53 AST 15 units/L (5-40) 04/23/20 04:53 ALT 15 units/L (7-56) 04/23/20 04:53 Alkaline Phosphatase 50 units/L (35-129) 04/23/20 04:53 Total Protein 5.9 g/dL (6.3-8.2) L 04/23/20 04:53 Albumin 3.8 g/dL (3.9-5) L 04/23/20 04:53 Albumin/Globulin Ratio 1.8 % 04/23/20 04:53 Triglycerides 67 mg/dL (2-149) 04/23/20 04:53 Cholesterol 167 mg/dL (50-199) 04/23/20 04:53 LDL Cholesterol Direct 121 mg/dL (50-130) 04/23/20 04:53 HDL Cholesterol 45 mg/dL (40-59) 04/23/20 04:53 Cholesterol/HDL Ratio 3.71 % 04/23/20 04:53 TSH 2.490 mlU/mL (0.270-4.200) 04/23/20 04:53 Thyroxine (T4) 7.8 ug/dL (4.0-12.0) 04/23/20 04:53 Last Vital Signs Temp 98.3 F 04/25/20 19:38 Pulse 78 04/25/20 19:38 Resp 20 04/25/20 19:38 BP 153/85 04/25/20 19:38 Pulse Ox 98 04/25/20 19:38
[2020-04-26] MEDS: OMEGA-3 FATTY ACIDS/FISH OIL 1 GRAM CAP PO SCH ×2 (10:25→21:00)
[2020-04-26] MEDS: risperiDONE 1 MG TAB PO SCH ×2 (10:25→21:24)
--- NOTE | 2020-04-26 11:52 | Progress Note ---
Hospitalist Physical - Constitutional Vitals: Temp Pulse Resp BP Pulse Ox 98.3 F 78 20 153/85 98 04/25/20 19:38 04/25/20 19:38 04/25/20 19:38 04/25/20 19:38 04/25/20 19:38 General appearance: Present: no acute distress, well-nourished Results - Labs CBC & Chem 7: 04/23/20 04:53 04/23/20 04:53 Labs: Laboratory Last Values WBC 6.8 K/mm3 (4.5-11.0) 04/23/20 04:53 RBC 4.65 M/mm3 (3.65-5.03) 04/23/20 04:53 Hgb 14.2 gm/dl (11.8-15.2) 04/23/20 04:53 Hct 43.5 % (35.5-45.6) 04/23/20 04:53 MCV 94 fl (84-94) 04/23/20 04:53 MCH 31 pg (28-32) 04/23/20 04:53 MCHC 33 % (32-34) 04/23/20 04:53 RDW 13.7 % (13.2-15.2) 04/23/20 04:53 Plt Count 626 K/mm3 (140-440) H 04/23/20 04:53 [place] % (Auto) Button Cutting Machine Operator 04/23/20 04:53 Add Manual Diff Complete 04/23/20 04:53 Total Counted 100 04/23/20 04:53 Seg Neuts % (Manual) 75.0 % (40.0-70.0) H 04/23/20 04:53 Band Neutrophils % 0 % 04/23/20 04:53 Lymphocytes % (Manual) 11.0 % (13.4-35.0) L 04/23/20 04:53 Reactive Lymphs % (Man) 0 % 04/23/20 04:53 Monocytes % (Manual) 8.0 % (0.0-7.3) H 04/23/20 04:53 Eosinophils % (Manual) 6.0 % (0.0-4.3) H 04/23/20 04:53 Basophils % (Manual) 0 % (0.0-1.8) 04/23/20 04:53 Metamyelocytes % 0 % 04/23/20 04:53 Myelocytes % 0 % 04/23/20 04:53 Promyelocytes % 0 % 04/23/20 04:53 Blast Cells % 0 % 04/23/20 04:53 Nucleated RBC % Not Reportable 04/23/20 04:53 Seg Neutrophils # Man 5.1 K/mm3 (1.8-7.7) 04/23/20 04:53 Band Neutrophils # 0.0 K/mm3 04/23/20 04:53 Lymphocytes # (Manual) 0.7 K/mm3 (1.2-5.4) L 04/23/20 04:53 Abs React Lymphs (Man) 0.0 K/mm3 04/23/20 04:53 Monocytes # (Manual) 0.5 K/mm3 (0.0-0.8) 04/23/20 04:53 Eosinophils # (Manual) 0.4 K/mm3 (0.0-0.4) 04/23/20 04:53 Basophils # (Manual) 0.0 K/mm3 (0.0-0.1) 04/23/20 04:53 Metamyelocytes # 0.0 K/mm3 04/23/20 04:53 Myelocytes # 0.0 K/mm3 04/23/20 04:53 Promyelocytes # 0.0 K/mm3 04/23/20 04:53 Blast Cells # 0.0 K/mm3 04/23/20 04:53 WBC Morphology Not Reportable 04/23/20 04:53 Hypersegmented Neuts Not Reportable 04/23/20 04:53 Hyposegmented Neuts Not Reportable 04/23/20 04:53 Hypogranular Neuts Not Reportable 04/23/20 04:53 Smudge Cells Not Reportable 04/23/20 04:53 Toxic Granulation Not Reportable 04/23/20 04:53 Toxic Vacuolation Not Reportable 04/23/20 04:53 Dohle Bodies Not Reportable 04/23/20 04:53 Pelger-Huet Anomaly Not Reportable 04/23/20 04:53 Kyle Rods Not Reportable 04/23/20 04:53 Platelet Estimate Consistent w auto 04/23/20 04:53 Clumped Platelets Not Reportable 04/23/20 04:53 Plt Clumps, EDTA Not Reportable 04/23/20 04:53 Large Platelets Not Reportable 04/23/20 04:53 Giant Platelets Not Reportable 04/23/20 04:53 Platelet Satelliting Not Reportable 04/23/20 04:53 Plt Morphology Comment Not Reportable 04/23/20 04:53 RBC Morphology Not Reportable 04/23/20 04:53 Dimorphic RBCs Not Reportable 04/23/20 04:53 Polychromasia Not Reportable 04/23/20 04:53 Hypochromasia Not Reportable 04/23/20 04:53 Poikilocytosis Not Reportable 04/23/20 04:53 Anisocytosis 1+ 04/23/20 04:53 Microcytosis Not Reportable 04/23/20 04:53 Macrocytosis Not Reportable 04/23/20 04:53 Spherocytes Not Reportable 04/23/20 04:53 Pappenheimer Bodies Not Reportable 04/23/20 04:53 Sickle Cells Not Reportable 04/23/20 04:53 Target Cells Not Reportable 04/23/20 04:53 Tear Drop Cells Not Reportable 04/23/20 04:53 Ovalocytes Not Reportable 04/23/20 04:53 Helmet Cells Not Reportable 04/23/20 04:53 Mcgarry-[place] Bodies Not Reportable 04/23/20 04:53 [place] Rings Not Reportable 04/23/20 04:53 Pablo Cells Not Reportable 04/23/20 04:53 Bite Cells Not Reportable 04/23/20 04:53 Crenated Cell Not Reportable 04/23/20 04:53 Elliptocytes Not Reportable 04/23/20 04:53 Acanthocytes (Spur) Not Reportable 04/23/20 04:53 Rouleaux Not Reportable 04/23/20 04:53 Hemoglobin C Crystals Not Reportable 04/23/20 04:53 Schistocytes Not Reportable 04/23/20 04:53 Malaria parasites Not Reportable 04/23/20 04:53 Willie Bodies Not Reportable 04/23/20 04:53 Hem Pathologist Commnt No 04/23/20 04:53 Sodium 140 mmol/L (137-145) 04/23/20 04:53 Potassium 4.6 mmol/L (3.6-5.0) 04/23/20 04:53 Chloride 106.0 mmol/L (98-107) 04/23/20 04:53 Carbon Dioxide 26 mmol/L (22-30) 04/23/20 04:53 Anion Gap 13 mmol/L 04/23/20 04:53 BUN 22 mg/dL (9-20) H 04/23/20 04:53 Creatinine 0.9 mg/dL (0.8-1.5) 04/23/20 04:53 Estimated GFR > 60 ml/min 04/23/20 04:53 BUN/Creatinine Ratio 24 % 04/23/20 04:53 Glucose 113 mg/dL (75-100) H 04/23/20 04:53 POC Glucose 108 (70-105) H 04/21/20 16:03 Hemoglobin A1c 5.4 % (4-6) 04/23/20 04:53 Calcium 8.9 mg/dL (8.4-10.2) 04/23/20 04:53 Total Bilirubin 0.60 mg/dL (0.1-1.2) 04/23/20 04:53 AST 15 units/L (5-40) 04/23/20 04:53 ALT 15 units/L (7-56) 04/23/20 04:53 Alkaline Phosphatase 50 units/L (35-129) 04/23/20 04:53 Total Protein 5.9 g/dL (6.3-8.2) L 04/23/20 04:53 Albumin 3.8 g/dL (3.9-5) L 04/23/20 04:53 Albumin/Globulin Ratio 1.8 % 04/23/20 04:53 Triglycerides 67 mg/dL (2-149) 04/23/20 04:53 Cholesterol 167 mg/dL (50-199) 04/23/20 04:53 LDL Cholesterol Direct 121 mg/dL (50-130) 04/23/20 04:53 HDL Cholesterol 45 mg/dL (40-59) 04/23/20 04:53 Cholesterol/HDL Ratio 3.71 % 04/23/20 04:53 TSH 2.490 mlU/mL (0.270-4.200) 04/23/20 04:53 Thyroxine (T4) 7.8 ug/dL (4.0-12.0) 04/23/20 04:53 Herrera/IV: Voiding Method Toilet Active Medications - Current Medications Current Medications: Generic Name Dose Route Start Last Admin Trade Name Freq PRN Reason Stop Dose Admin Fish Oil 2,000 mg 04/23/20 10:00 04/26/20 10:25 Fish Oil PO 2,000 mg BID YAHIR Administration Melatonin 5 mg 04/23/20 22:00 04/25/20 21:05 Melatonin PO 5 mg QHS YAHIR Administration Risperidone 1 mg 04/25/20 10:00 04/26/20 10:25 Risperdal PO 1 mg BID YAHIR Administration Trazodone HCl 50 mg 04/22/20 22:00 04/25/20 21:05 Desyrel PO 50 mg QHS YAHIR Administration
[2020-04-26] MEDS: traZODone 50 MG TAB PO SCH (21:25)
[2020-04-26] MEDS: MELATONIN 5 MG TAB PO SCH (21:25)
--- NOTE | 2020-04-27 09:26 | Progress Note ---
Subjective Date of service: 04/27/20 Principal diagnosis: (1) Dementia with behavioral disturbance Subjective Comment: The patient's medical record was reviewed and the patient's progress was discussed with the nursing staff. During my interview with the patient this morning, he is standing up in the dayroom. He is dressed appropriately. He is a/o x 2. He says he's doing "fine." He denies hallucinations of any kind. He also denies SI/HI. He says he slept "pretty good." Reason for continued inpatient treatment: The patient has times where he is irritable, and is unable to care for himself. Will continue to stabilize and plan for a safe discharge. REVIEW OF SYSTEMS Constitutional: Negative for weight loss ENT: Negative for stridor Respiratory: Negative for cough or hemoptysis All other systems reviewed and are negative MENTAL STATUS EXAMINATION General Appearance: Dressed appropriately Behavior: Calm and, cooperative Mood: "fine" Affect and affective range: Congruent with stated mood Speech: Normal tone and pace Thought Process: Impaired Thought Content Suicidal Ideation: Denies SI Homicidal Ideation: Denies HI Hallucinations: Denies Delusions: None elicited Insight and Judgment: Limited insight and judgment Memory/Cognition: Impaired Assessment (1) Dementia with behavioral disturbance Current Visit: Yes Status: Acute Treatment Plan Patient will be admitted for inpatient psychiatric evaluation, medication adjustment and close monitoring The patient's behavior, mood, sleep and appetite will be closely monitored. Patient will be enrolled in individual and group therapeutic sessions and encouraged to attend. Patient will be provided with a safe and structured environment. Patient's physical health needs will be addressed by the Hospitalist. Hospitalist Consulted Labs including CBC, CMP, Lipid profile and Hemoglobin A1C ordered Social Assessment will be completed and the Mold Operator will work with patient and family to ensure a suitable and safe disposition Medication adjustment will be made as clinically indicated No changes today Usual Wellness Sikh/Preservation: - Start Trazodone 50 mg po QHS - Start Melatonin 5 mg po QHS to promote circadian rhythm The patient agreed on the treatment plan, understood the risk, benefit, alternative treatment, potential consequence of no treatment, and gave informed consent. Estimated period of time patient will need to remain in the hospital: [3] Plan for post-hospital care: [outpatien] Medications and Allergies Allergies Allergy/AdvReac Type Severity Reaction Status Date / Time No Known Allergies Allergy Verified 04/21/20 11:22 Home Medications Medication Instructions Recorded Confirmed Last Taken Type Melatonin [Melatonin 5MG CAP] 5 mg PO PRN PRN 04/22/20 04/22/20 2 Days Ago History ~04/20/20 5 mg Active Meds: Active Medications Fish Oil (Fish Oil) 2,000 mg PO BID [facility] Last Admin: 04/26/20 21:00 Dose: 2,000 mg Documented by: Melatonin (Melatonin) 5 mg PO QHS [facility] Last Admin: 04/26/20 21:25 Dose: 5 mg Documented by: Risperidone (Risperdal) 1 mg PO BID [facility] Last Admin: 04/26/20 21:24 Dose: 1 mg Documented by: Trazodone HCl (Desyrel) 50 mg PO QHS [facility] Last Admin: 04/26/20 21:25 Dose: 50 mg Documented by: Results - Results Labs/Vitals: Laboratory Last Values WBC 6.8 K/mm3 (4.5-11.0) 04/23/20 04:53 RBC 4.65 M/mm3 (3.65-5.03) 04/23/20 04:53 Hgb 14.2 gm/dl (11.8-15.2) 04/23/20 04:53 Hct 43.5 % (35.5-45.6) 04/23/20 04:53 MCV 94 fl (84-94) 04/23/20 04:53 MCH 31 pg (28-32) 04/23/20 04:53 MCHC 33 % (32-34) 04/23/20 04:53 RDW 13.7 % (13.2-15.2) 04/23/20 04:53 Plt Count 626 K/mm3 (140-440) H 04/23/20 04:53 [place] % (Auto) Grinder Set Up Operator Thread Tool 04/23/20 04:53 Add Manual Diff Complete 04/23/20 04:53 Total Counted 100 04/23/20 04:53 Seg Neuts % (Manual) 75.0 % (40.0-70.0) H 04/23/20 04:53 Band Neutrophils % 0 % 04/23/20 04:53 Lymphocytes % (Manual) 11.0 % (13.4-35.0) L 04/23/20 04:53 Reactive Lymphs % (Man) 0 % 04/23/20 04:53 Monocytes % (Manual) 8.0 % (0.0-7.3) H 04/23/20 04:53 Eosinophils % (Manual) 6.0 % (0.0-4.3) H 04/23/20 04:53 Basophils % (Manual) 0 % (0.0-1.8) 04/23/20 04:53 Metamyelocytes % 0 % 04/23/20 04:53 Myelocytes % 0 % 04/23/20 04:53 Promyelocytes % 0 % 04/23/20 04:53 Blast Cells % 0 % 04/23/20 04:53 Nucleated RBC % Not Reportable 04/23/20 04:53 Seg Neutrophils # Man 5.1 K/mm3 (1.8-7.7) 04/23/20 04:53 Band Neutrophils # 0.0 K/mm3 04/23/20 04:53 Lymphocytes # (Manual) 0.7 K/mm3 (1.2-5.4) L 04/23/20 04:53 Abs React Lymphs (Man) 0.0 K/mm3 04/23/20 04:53 Monocytes # (Manual) 0.5 K/mm3 (0.0-0.8) 04/23/20 04:53 Eosinophils # (Manual) 0.4 K/mm3 (0.0-0.4) 04/23/20 04:53 Basophils # (Manual) 0.0 K/mm3 (0.0-0.1) 04/23/20 04:53 Metamyelocytes # 0.0 K/mm3 04/23/20 04:53 Myelocytes # 0.0 K/mm3 04/23/20 04:53 Promyelocytes # 0.0 K/mm3 04/23/20 04:53 Blast Cells # 0.0 K/mm3 04/23/20 04:53 WBC Morphology Not Reportable 04/23/20 04:53 Hypersegmented Neuts Not Reportable 04/23/20 04:53 Hyposegmented Neuts Not Reportable 04/23/20 04:53 Hypogranular Neuts Not Reportable 04/23/20 04:53 Smudge Cells Not Reportable 04/23/20 04:53 Toxic Granulation Not Reportable 04/23/20 04:53 Toxic Vacuolation Not Reportable 04/23/20 04:53 Dohle Bodies Not Reportable 04/23/20 04:53 Pelger-Huet Anomaly Not Reportable 04/23/20 04:53 Kyle Rods Not Reportable 04/23/20 04:53 Platelet Estimate Consistent w auto 04/23/20 04:53 Clumped Platelets Not Reportable 04/23/20 04:53 Plt Clumps, EDTA Not Reportable 04/23/20 04:53 Large Platelets Not Reportable 04/23/20 04:53 Giant Platelets Not Reportable 04/23/20 04:53 Platelet Satelliting Not Reportable 04/23/20 04:53 Plt Morphology Comment Not Reportable 04/23/20 04:53 RBC Morphology Not Reportable 04/23/20 04:53 Dimorphic RBCs Not Reportable 04/23/20 04:53 Polychromasia Not Reportable 04/23/20 04:53 Hypochromasia Not Reportable 04/23/20 04:53 Poikilocytosis Not Reportable 04/23/20 04:53 Anisocytosis 1+ 04/23/20 04:53 Microcytosis Not Reportable 04/23/20 04:53 Macrocytosis Not Reportable 04/23/20 04:53 Spherocytes Not Reportable 04/23/20 04:53 Pappenheimer Bodies Not Reportable 04/23/20 04:53 Sickle Cells Not Reportable 04/23/20 04:53 Target Cells Not Reportable 04/23/20 04:53 Tear Drop Cells Not Reportable 04/23/20 04:53 Ovalocytes Not Reportable 04/23/20 04:53 Helmet Cells Not Reportable 04/23/20 04:53 [place]gar[place] Bodies Not Reportable 04/23/20 04:53 [place] Rings Not Reportable 04/23/20 04:53 Pablo Cells Not Reportable 04/23/20 04:53 Bite Cells Not Reportable 04/23/20 04:53 Crenated Cell Not Reportable 04/23/20 04:53 Elliptocytes Not Reportable 04/23/20 04:53 Acanthocytes (Spur) Not Reportable 04/23/20 04:53 Rouleaux Not Reportable 04/23/20 04:53 Hemoglobin C Crystals Not Reportable 04/23/20 04:53 Schistocytes Not Reportable 04/23/20 04:53 Malaria parasites Not Reportable 04/23/20 04:53 Willie Bodies Not Reportable 04/23/20 04:53 Hem Pathologist Commnt No 04/23/20 04:53 Sodium 140 mmol/L (137-145) 04/23/20 04:53 Potassium 4.6 mmol/L (3.6-5.0) 04/23/20 04:53 Chloride 106.0 mmol/L (98-107) 04/23/20 04:53 Carbon Dioxide 26 mmol/L (22-30) 04/23/20 04:53 Anion Gap 13 mmol/L 04/23/20 04:53 BUN 22 mg/dL (9-20) H 04/23/20 04:53 Creatinine 0.9 mg/dL (0.8-1.5) 04/23/20 04:53 Estimated GFR > 60 ml/min 04/23/20 04:53 BUN/Creatinine Ratio 24 % 04/23/20 04:53 Glucose 113 mg/dL (75-100) H 04/23/20 04:53 POC Glucose 108 (70-105) H 04/21/20 16:03 Hemoglobin A1c 5.4 % (4-6) 04/23/20 04:53 Calcium 8.9 mg/dL (8.4-10.2) 04/23/20 04:53 Total Bilirubin 0.60 mg/dL (0.1-1.2) 04/23/20 04:53 AST 15 units/L (5-40) 04/23/20 04:53 ALT 15 units/L (7-56) 04/23/20 04:53 Alkaline Phosphatase 50 units/L (35-129) 04/23/20 04:53 Total Protein 5.9 g/dL (6.3-8.2) L 04/23/20 04:53 Albumin 3.8 g/dL (3.9-5) L 04/23/20 04:53 Albumin/Globulin Ratio 1.8 % 04/23/20 04:53 Triglycerides 67 mg/dL (2-149) 04/23/20 04:53 Cholesterol 167 mg/dL (50-199) 04/23/20 04:53 LDL Cholesterol Direct 121 mg/dL (50-130) 04/23/20 04:53 HDL Cholesterol 45 mg/dL (40-59) 04/23/20 04:53 Cholesterol/HDL Ratio 3.71 % 04/23/20 04:53 TSH 2.490 mlU/mL (0.270-4.200) 04/23/20 04:53 Thyroxine (T4) 7.8 ug/dL (4.0-12.0) 04/23/20 04:53 Free T3 Index 3.3 pg/mL (2.3-4.2) 04/23/20 04:53 Last Vital Signs Temp 97.6 F 04/26/20 20:11 Pulse 77 04/26/20 20:11 Resp 14 04/26/20 20:11 BP 122/72 04/26/20 20:11 Pulse Ox 99 04/26/20 20:11
[2020-04-27] MEDS: OMEGA-3 FATTY ACIDS/FISH OIL 1 GRAM CAP PO SCH ×2 (09:47→21:06)
[2020-04-27] MEDS: risperiDONE 1 MG TAB PO SCH ×2 (09:47→21:06)
[2020-04-27] MEDS: MELATONIN 5 MG TAB PO SCH (21:06)
[2020-04-27] MEDS: traZODone 50 MG TAB PO SCH (21:06)
--- NOTE | 2020-04-28 09:05 | Progress Note ---
Subjective Date of service: 04/28/20 Principal diagnosis: (1) Dementia with behavioral disturbance Subjective Comment: The patient's medical record was reviewed and the patient's progress was discussed with the nursing staff. During my interview with the patient this morning, he is standing up in the dayroom. He is dressed appropriately. He is a/o x 2. He is sitting off to himself. When asking the patient how was he feeling, he states, "I guess I'm okay, but I don't know what's going on around here. Everything is so confusing." The patient says he slept "reasonably well." He denies an SI/HI. He also denies any hallucinations of any kind. Reason for continued inpatient treatment: The patient is unable to care for himself. Will continue to stabilize and plan for a safe discharge. REVIEW OF SYSTEMS Constitutional: Negative for weight loss ENT: Negative for stridor Respiratory: Negative for cough or hemoptysis All other systems reviewed and are negative MENTAL STATUS EXAMINATION General Appearance: Dressed appropriately Behavior: Calm and, cooperative, slightly irritable Mood: "okay" Affect and affective range: Congruent with stated mood Speech: Normal tone and pace Thought Process: Confused Thought Content Suicidal Ideation: Denies SI Homicidal Ideation: Denies HI Hallucinations: Denies Delusions: None elicited Insight and Judgment: Limited insight and judgment Memory/Cognition: Impaired Assessment (1) Dementia with behavioral disturbance Current Visit: Yes Status: Acute Treatment Plan Patient will be admitted for inpatient psychiatric evaluation, medication adjustment and close monitoring The patient's behavior, mood, sleep and appetite will be closely monitored. Patient will be enrolled in individual and group therapeutic sessions and encouraged to attend. Patient will be provided with a safe and structured environment. Patient's physical health needs will be addressed by the Hospitalist. Hospitalist Consulted Labs including CBC, CMP, Lipid profile and Hemoglobin A1C ordered Social Assessment will be completed and the Job Compositor will work with patient and family to ensure a suitable and safe disposition Medication adjustment will be made as clinically indicated No changes today Usual Wellness Mandaeism/Preservation: - Start Trazodone 50 mg po QHS - Start Melatonin 5 mg po QHS to promote circadian rhythm The patient agreed on the treatment plan, understood the risk, benefit, alterna tive treatment, potential consequence of no treatment, and gave informed consent. Estimated period of time patient will need to remain in the hospital: [3] Plan for post-hospital care: [outpatien] Medications and Allergies Allergies Allergy/AdvReac Type Severity Reaction Status Date / Time No Known Allergies Allergy Verified 04/21/20 11:22 Home Medications Medication Instructions Recorded Confirmed Last Taken Type Melatonin [Melatonin 5MG CAP] 5 mg PO PRN PRN 04/22/20 04/22/20 2 Days Ago History ~04/20/20 5 mg Active Meds: Active Medications Fish Oil (Fish Oil) 2,000 mg PO BID [facility] Last Admin: 04/27/20 21:06 Dose: 2,000 mg Documented by: Melatonin (Melatonin) 5 mg PO QHS [facility] Last Admin: 04/27/20 21:06 Dose: 5 mg Documented by: Risperidone (Risperdal) 1 mg PO BID [facility] Last Admin: 04/27/20 21:06 Dose: 1 mg Documented by: Trazodone HCl (Desyrel) 50 mg PO QHS [facility] Last Admin: 04/27/20 21:06 Dose: 50 mg Documented by: Results - Results Labs/Vitals: Laboratory Last Values WBC 6.8 K/mm3 (4.5-11.0) 04/23/20 04:53 RBC 4.65 M/mm3 (3.65-5.03) 04/23/20 04:53 Hgb 14.2 gm/dl (11.8-15.2) 04/23/20 04:53 Hct 43.5 % (35.5-45.6) 04/23/20 04:53 MCV 94 fl (84-94) 04/23/20 04:53 MCH 31 pg (28-32) 04/23/20 04:53 MCHC 33 % (32-34) 04/23/20 04:53 RDW 13.7 % (13.2-15.2) 04/23/20 04:53 Plt Count 626 K/mm3 (140-440) H 04/23/20 04:53 Maury % (Auto) Billet Straightener 04/23/20 04:53 Add Manual Diff Complete 04/23/20 04:53 Total Counted 100 04/23/20 04:53 Seg Neuts % (Manual) 75.0 % (40.0-70.0) H 04/23/20 04:53 Band Neutrophils % 0 % 04/23/20 04:53 Lymphocytes % (Manual) 11.0 % (13.4-35.0) L 04/23/20 04:53 Reactive Lymphs % (Man) 0 % 04/23/20 04:53 Monocytes % (Manual) 8.0 % (0.0-7.3) H 04/23/20 04:53 Eosinophils % (Manual) 6.0 % (0.0-4.3) H 04/23/20 04:53 Basophils % (Manual) 0 % (0.0-1.8) 04/23/20 04:53 Metamyelocytes % 0 % 04/23/20 04:53 Myelocytes % 0 % 04/23/20 04:53 Promyelocytes % 0 % 04/23/20 04:53 Blast Cells % 0 % 04/23/20 04:53 Nucleated RBC % Not Reportable 04/23/20 04:53 Seg Neutrophils # Man 5.1 K/mm3 (1.8-7.7) 04/23/20 04:53 Band Neutrophils # 0.0 K/mm3 04/23/20 04:53 Lymphocytes # (Manual) 0.7 K/mm3 (1.2-5.4) L 04/23/20 04:53 Abs React Lymphs (Man) 0.0 K/mm3 04/23/20 04:53 Monocytes # (Manual) 0.5 K/mm3 (0.0-0.8) 04/23/20 04:53 Eosinophils # (Manual) 0.4 K/mm3 (0.0-0.4) 04/23/20 04:53 Basophils # (Manual) 0.0 K/mm3 (0.0-0.1) 04/23/20 04:53 Metamyelocytes # 0.0 K/mm3 04/23/20 04:53 Myelocytes # 0.0 K/mm3 04/23/20 04:53 Promyelocytes # 0.0 K/mm3 04/23/20 04:53 Blast Cells # 0.0 K/mm3 04/23/20 04:53 WBC Morphology Not Reportable 04/23/20 04:53 Hypersegmented Neuts Not Reportable 04/23/20 04:53 Hyposegmented Neuts Not Reportable 04/23/20 04:53 Hypogranular Neuts Not Reportable 04/23/20 04:53 Smudge Cells Not Reportable 04/23/20 04:53 Toxic Granulation Not Reportable 04/23/20 04:53 Toxic Vacuolation Not Reportable 04/23/20 04:53 Dohle Bodies Not Reportable 04/23/20 04:53 Pelger-Huet Anomaly Not Reportable 04/23/20 04:53 Kyle Rods Not Reportable 04/23/20 04:53 Platelet Estimate Consistent w auto 04/23/20 04:53 Clumped Platelets Not Reportable 04/23/20 04:53 Plt Clumps, EDTA Not Reportable 04/23/20 04:53 Large Platelets Not Reportable 04/23/20 04:53 Giant Platelets Not Reportable 04/23/20 04:53 Platelet Satelliting Not Reportable 04/23/20 04:53 Plt Morphology Comment Not Reportable 04/23/20 04:53 RBC Morphology Not Reportable 04/23/20 04:53 Dimorphic RBCs Not Reportable 04/23/20 04:53 Polychromasia Not Reportable 04/23/20 04:53 Hypochromasia Not Reportable 04/23/20 04:53 Poikilocytosis Not Reportable 04/23/20 04:53 Anisocytosis 1+ 04/23/20 04:53 Microcytosis Not Reportable 04/23/20 04:53 Macrocytosis Not Reportable 04/23/20 04:53 Spherocytes Not Reportable 04/23/20 04:53 Pappenheimer Bodies Not Reportable 04/23/20 04:53 Sickle Cells Not Reportable 04/23/20 04:53 Target Cells Not Reportable 04/23/20 04:53 Tear Drop Cells Not Reportable 04/23/20 04:53 Ovalocytes Not Reportable 04/23/20 04:53 Helmet Cells Not Reportable 04/23/20 04:53 Mcgarry-[place] Bodies Not Reportable 04/23/20 04:53 [place] Rings Not Reportable 04/23/20 04:53 [place] Cells Not Reportable 04/23/20 04:53 Bite Cells Not Reportable 04/23/20 04:53 Crenated Cell Not Reportable 04/23/20 04:53 Elliptocytes Not Reportable 04/23/20 04:53 Acanthocytes (Spur) Not Reportable 04/23/20 04:53 Rouleaux Not Reportable 04/23/20 04:53 Hemoglobin C Crystals Not Reportable 04/23/20 04:53 Schistocytes Not Reportable 04/23/20 04:53 Malaria parasites Not Reportable 04/23/20 04:53 Willie Bodies Not Reportable 04/23/20 04:53 Hem Pathologist Commnt No 04/23/20 04:53 Sodium 140 mmol/L (137-145) 04/23/20 04:53 Potassium 4.6 mmol/L (3.6-5.0) 04/23/20 04:53 Chloride 106.0 mmol/L (98-107) 04/23/20 04:53 Carbon Dioxide 26 mmol/L (22-30) 04/23/20 04:53 Anion Gap 13 mmol/L 04/23/20 04:53 BUN 22 mg/dL (9-20) H 04/23/20 04:53 Creatinine 0.9 mg/dL (0.8-1.5) 04/23/20 04:53 Estimated GFR > 60 ml/min 04/23/20 04:53 BUN/Creatinine Ratio 24 % 04/23/20 04:53 Glucose 113 mg/dL (75-100) H 04/23/20 04:53 POC Glucose 108 (70-105) H 04/21/20 16:03 Hemoglobin A1c 5.4 % (4-6) 04/23/20 04:53 Calcium 8.9 mg/dL (8.4-10.2) 04/23/20 04:53 Total Bilirubin 0.60 mg/dL (0.1-1.2) 04/23/20 04:53 AST 15 units/L (5-40) 04/23/20 04:53 ALT 15 units/L (7-56) 04/23/20 04:53 Alkaline Phosphatase 50 units/L (35-129) 04/23/20 04:53 Total Protein 5.9 g/dL (6.3-8.2) L 04/23/20 04:53 Albumin 3.8 g/dL (3.9-5) L 04/23/20 04:53 Albumin/Globulin Ratio 1.8 % 04/23/20 04:53 Triglycerides 67 mg/dL (2-149) 04/23/20 04:53 Cholesterol 167 mg/dL (50-199) 04/23/20 04:53 LDL Cholesterol Direct 121 mg/dL (50-130) 04/23/20 04:53 HDL Cholesterol 45 mg/dL (40-59) 04/23/20 04:53 Cholesterol/HDL Ratio 3.71 % 04/23/20 04:53 TSH 2.490 mlU/mL (0.270-4.200) 04/23/20 04:53 Thyroxine (T4) 7.8 ug/dL (4.0-12.0) 04/23/20 04:53 Free T3 Index 3.3 pg/mL (2.3-4.2) 04/23/20 04:53 Last Vital Signs Temp 98.3 F 04/27/20 19:55 Pulse 78 04/27/20 19:55 Resp 18 04/27/20 19:55 BP 126/71 04/27/20 19:55 Pulse Ox 98 04/27/20 19:55
[2020-04-28] MEDS: OMEGA-3 FATTY ACIDS/FISH OIL 1 GRAM CAP PO SCH ×2 (10:34→21:59)
[2020-04-28] MEDS: risperiDONE 1 MG TAB PO SCH ×2 (11:47→21:59)
[2020-04-28] MEDS: MELATONIN 5 MG TAB PO SCH (21:59)
[2020-04-28] MEDS: traZODone 50 MG TAB PO SCH (21:59)
--- NOTE | 2020-04-29 07:31 | Progress Note ---
Subjective Date of service: 04/29/20 Principal diagnosis: (1) Dementia with behavioral disturbance Subjective Comment: Nurse Note: Received sitting with others around a table in the activity room. Pt is calm, but with some confusion. Bilateral UE noted with bruises and and redness on left eyes. Denies pain, SI, HI. No acute distress observed and none reported. Will continue to monitor. PSYCH HPI Reports feeling good, denies having any complaints today. Smiling and interacting with peers and easily redirectable Reason for continuing inpatient psychiatric hospitalization: Pt pending placement. REVIEW OF SYSTEMS Constitutional: Negative for weight loss ENT: Negative for stridor Respiratory: Negative for cough or hemoptysis All other systems reviewed and are negative MENTAL STATUS EXAMINATION General Appearance and Behavior: Age appropriate, good hygiene, wearing appropriate clothes, lying in bed, good eye contact, cooperative polite with questioning. Cooperation: Participating/engaged Psychomotor Behavior: unremarkable and within normal limits Mood: not good Affect and affective range: congruent with mood Thought Process: Fluent/Logical Thought Content: Within reality Speech: Normal volume, Regular rate and rhythm Intellectual Functioning: Average Suicidal Ideation: Denies SI Homicidal Ideation: Denies HI Impulse Control: Impaired Insight and Judgment: Limited insight and judgment Memory: Poor with intermittent perioid of luciditiy Attention: Normal Orientation: Alert, oriented Diagnoses: Assessment and Plan - Psychiatric problem (1) Dementia with behavioral disturbance Current Visit: Yes Status: Acute Treatment Plan Continue current meds Patient will be admitted for inpatient psychiatric evaluation, medication adjustment and close monitoring The patient's behavior, mood, sleep and appetite will be closely monitored. Patient will be enrolled in individual and group therapeutic sessions and encouraged to attend. Patient will be provided with a safe and structured environment. Patient's physical health needs will be addressed by the Hospitalist. Hospitalist Consulted Labs including CBC, CMP, Lipid profile and Hemoglobin A1C ordered Social Assessment will be completed and the Housekeeper Home will work with patient and family to ensure a suitable and safe disposition Medication adjustment will be made as clinically indicated Usual Wellness Christianity/Preservation: - Start Trazodone 50 mg po QHS & 50 mg po QHS PRN between 10 PM & 2 AM for insomnia - Start Melatonin 5 mg po QHS to promote circadian rhythm - Start [place]-3 for brain health, reduce impulsivity, and as adjunctive treatment for mood disorder, continue upon discharge given overall benefits. - Start B1 prophylaxis with 200 mg po for 5 days The patient agreed on the treatment plan, understood the risk, benefit, alternative treatment, potential consequence of no treatment, and gave informed consent. Initial Certification This is an acknowledgement statement that RAJINDER JUNE is a 80 year old M who requires inpatient psychiatric admission for treatment which could reasonably be expected to improve the patient's condition for his Mental Health Estimated period of time patient will need to remain in the hospital: [2] Plan for post-hospital care: [outpt] Assessment and Plan - Patient Problems (1) Dementia with behavioral disturbance Current Visit: Yes Status: Acute Medications and Allergies Allergies Allergy/AdvReac Type Severity Reaction Status Date / Time No Known Allergies Allergy Verified 04/21/20 11:22 Home Medications Medication Instructions Recorded Confirmed Last Taken Type Melatonin [Melatonin 5MG CAP] 5 mg PO PRN PRN 04/22/20 04/22/20 2 Days Ago History ~04/20/20 5 mg Active Meds: Active Medications Fish Oil (Fish Oil) 2,000 mg PO BID [facility] Last Admin: 04/28/20 21:59 Dose: 2,000 mg Documented by: Melatonin (Melatonin) 5 mg PO QHS [facility] Last Admin: 04/28/20 21:59 Dose: 5 mg Documented by: Risperidone (Risperdal) 1 mg PO BID [facility] Last Admin: 04/28/20 21:59 Dose: 1 mg Documented by: Trazodone HCl (Desyrel) 50 mg PO QHS [facility] Last Admin: 04/28/20 21:59 Dose: 50 mg Documented by: Results - Results Labs/Vitals: Laboratory Last Values WBC 6.8 K/mm3 (4.5-11.0) 04/23/20 04:53 RBC 4.65 M/mm3 (3.65-5.03) 04/23/20 04:53 Hgb 14.2 gm/dl (11.8-15.2) 04/23/20 04:53 Hct 43.5 % (35.5-45.6) 04/23/20 04:53 MCV 94 fl (84-94) 04/23/20 04:53 MCH 31 pg (28-32) 04/23/20 04:53 MCHC 33 % (32-34) 04/23/20 04:53 RDW 13.7 % (13.2-15.2) 04/23/20 04:53 Plt Count 626 K/mm3 (140-440) H 04/23/20 04:53 Dane % (Auto) Supervisor Type Disk Quality Control 04/23/20 04:53 Add Manual Diff Complete 04/23/20 04:53 Total Counted 100 04/23/20 04:53 Seg Neuts % (Manual) 75.0 % (40.0-70.0) H 04/23/20 04:53 Band Neutrophils % 0 % 04/23/20 04:53 Lymphocytes % (Manual) 11.0 % (13.4-35.0) L 04/23/20 04:53 Reactive Lymphs % (Man) 0 % 04/23/20 04:53 Monocytes % (Manual) 8.0 % (0.0-7.3) H 04/23/20 04:53 Eosinophils % (Manual) 6.0 % (0.0-4.3) H 04/23/20 04:53 Basophils % (Manual) 0 % (0.0-1.8) 04/23/20 04:53 Metamyelocytes % 0 % 04/23/20 04:53 Myelocytes % 0 % 04/23/20 04:53 Promyelocytes % 0 % 04/23/20 04:53 Blast Cells % 0 % 04/23/20 04:53 Nucleated RBC % Not Reportable 04/23/20 04:53 Seg Neutrophils # Man 5.1 K/mm3 (1.8-7.7) 04/23/20 04:53 Band Neutrophils # 0.0 K/mm3 04/23/20 04:53 Lymphocytes # (Manual) 0.7 K/mm3 (1.2-5.4) L 04/23/20 04:53 Abs React Lymphs (Man) 0.0 K/mm3 04/23/20 04:53 Monocytes # (Manual) 0.5 K/mm3 (0.0-0.8) 04/23/20 04:53 Eosinophils # (Manual) 0.4 K/mm3 (0.0-0.4) 04/23/20 04:53 Basophils # (Manual) 0.0 K/mm3 (0.0-0.1) 04/23/20 04:53 Metamyelocytes # 0.0 K/mm3 04/23/20 04:53 Myelocytes # 0.0 K/mm3 04/23/20 04:53 Promyelocytes # 0.0 K/mm3 04/23/20 04:53 Blast Cells # 0.0 K/mm3 04/23/20 04:53 WBC Morphology Not Reportable 04/23/20 04:53 Hypersegmented Neuts Not Reportable 04/23/20 04:53 Hyposegmented Neuts Not Reportable 04/23/20 04:53 Hypogranular Neuts Not Reportable 04/23/20 04:53 Smudge Cells Not Reportable 04/23/20 04:53 Toxic Granulation Not Reportable 04/23/20 04:53 Toxic Vacuolation Not Reportable 04/23/20 04:53 Dohle Bodies Not Reportable 04/23/20 04:53 Pelger-Huet Anomaly Not Reportable 04/23/20 04:53 Kyle Rods Not Reportable 04/23/20 04:53 Platelet Estimate Consistent w auto 04/23/20 04:53 Clumped Platelets Not Reportable 04/23/20 04:53 Plt Clumps, EDTA Not Reportable 04/23/20 04:53 Large Platelets Not Reportable 04/23/20 04:53 Giant Platelets Not Reportable 04/23/20 04:53 Platelet Satelliting Not Reportable 04/23/20 04:53 Plt Morphology Comment Not Reportable 04/23/20 04:53 RBC Morphology Not Reportable 04/23/20 04:53 Dimorphic RBCs Not Reportable 04/23/20 04:53 Polychromasia Not Reportable 04/23/20 04:53 Hypochromasia Not Reportable 04/23/20 04:53 Poikilocytosis Not Reportable 04/23/20 04:53 Anisocytosis 1+ 04/23/20 04:53 Microcytosis Not Reportable 04/23/20 04:53 Macrocytosis Not Reportable 04/23/20 04:53 Spherocytes Not Reportable 04/23/20 04:53 Pappenheimer Bodies Not Reportable 04/23/20 04:53 Sickle Cells Not Reportable 04/23/20 04:53 Target Cells Not Reportable 04/23/20 04:53 Tear Drop Cells Not Reportable 04/23/20 04:53 Ovalocytes Not Reportable 04/23/20 04:53 Helmet Cells Not Reportable 04/23/20 04:53 [place]gar[place] Bodies Not Reportable 04/23/20 04:53 [place] Rings Not Reportable 04/23/20 04:53 [place] Cells Not Reportable 04/23/20 04:53 Bite Cells Not Reportable 04/23/20 04:53 Crenated Cell Not Reportable 04/23/20 04:53 Elliptocytes Not Reportable 04/23/20 04:53 Acanthocytes (Spur) Not Reportable 04/23/20 04:53 Rouleaux Not Reportable 04/23/20 04:53 Hemoglobin C Crystals Not Reportable 04/23/20 04:53 Schistocytes Not Reportable 04/23/20 04:53 Malaria parasites Not Reportable 04/23/20 04:53 Willie Bodies Not Reportable 04/23/20 04:53 Hem Pathologist Commnt No 04/23/20 04:53 Sodium 140 mmol/L (137-145) 04/23/20 04:53 Potassium 4.6 mmol/L (3.6-5.0) 04/23/20 04:53 Chloride 106.0 mmol/L (98-107) 04/23/20 04:53 Carbon Dioxide 26 mmol/L (22-30) 04/23/20 04:53 Anion Gap 13 mmol/L 04/23/20 04:53 BUN 22 mg/dL (9-20) H 04/23/20 04:53 Creatinine 0.9 mg/dL (0.8-1.5) 04/23/20 04:53 Estimated GFR > 60 ml/min 04/23/20 04:53 BUN/Creatinine Ratio 24 % 04/23/20 04:53 Glucose 113 mg/dL (75-100) H 04/23/20 04:53 POC Glucose 108 (70-105) H 04/21/20 16:03 Hemoglobin A1c 5.4 % (4-6) 04/23/20 04:53 Calcium 8.9 mg/dL (8.4-10.2) 04/23/20 04:53 Total Bilirubin 0.60 mg/dL (0.1-1.2) 04/23/20 04:53 AST 15 units/L (5-40) 04/23/20 04:53 ALT 15 units/L (7-56) 04/23/20 04:53 Alkaline Phosphatase 50 units/L (35-129) 04/23/20 04:53 Total Protein 5.9 g/dL (6.3-8.2) L 04/23/20 04:53 Albumin 3.8 g/dL (3.9-5) L 04/23/20 04:53 Albumin/Globulin Ratio 1.8 % 04/23/20 04:53 Triglycerides 67 mg/dL (2-149) 04/23/20 04:53 Cholesterol 167 mg/dL (50-199) 04/23/20 04:53 LDL Cholesterol Direct 121 mg/dL (50-130) 04/23/20 04:53 HDL Cholesterol 45 mg/dL (40-59) 04/23/20 04:53 Cholesterol/HDL Ratio 3.71 % 04/23/20 04:53 TSH 2.490 mlU/mL (0.270-4.200) 04/23/20 04:53 Thyroxine (T4) 7.8 ug/dL (4.0-12.0) 04/23/20 04:53 Free T3 Index 3.3 pg/mL (2.3-4.2) 04/23/20 04:53 Last Vital Signs Temp 98.5 F 04/28/20 22:00 Pulse 77 04/28/20 19:51 Resp 18 04/28/20 22:00 BP 141/73 04/28/20 19:51 Pulse Ox 96 04/28/20 19:51
[2020-04-29] MEDS: OMEGA-3 FATTY ACIDS/FISH OIL 1 GRAM CAP PO SCH ×2 (09:58→21:21)
[2020-04-29] MEDS: risperiDONE 1 MG TAB PO SCH ×2 (09:59→21:22)
[2020-04-29] MEDS: traZODone 50 MG TAB PO SCH (21:21)
[2020-04-29] MEDS: MELATONIN 5 MG TAB PO SCH (21:22)
--- NOTE | 2020-04-30 09:03 | Progress Note ---
Subjective Date of service: 04/30/20 Principal diagnosis: (1) Dementia with behavioral disturbance Subjective Comment: The patient's medical record was reviewed and the patient's progress was discussed with the nursing staff. During my interview with the patient this morning, he is sitting in the dayroom. He appears withdrawn. He is a/o x 1. He says his mood is "pretty well." He says he slept "good." The patient denies SI/HI or hallucinations of any kind. Reason for continued inpatient treatment: The patient is unable to care for himself. Will continue to stabilize and plan for a safe discharge. REVIEW OF SYSTEMS Constitutional: Negative for weight loss ENT: Negative for stridor Respiratory: Negative for cough or hemoptysis All other systems reviewed and are negative MENTAL STATUS EXAMINATION General Appearance: Dressed appropriately Behavior: Calm and, cooperative Mood: "pretty well" Affect and affective range: Congruent with stated mood Speech: Normal tone and pace Thought Process: Confused Thought Content Suicidal Ideation: Denies SI Homicidal Ideation: Denies HI Hallucinations: Denies Delusions: None elicited Insight and Judgment: Limited insight and judgment Memory/Cognition: Impaired Assessment (1) Dementia with behavioral disturbance Current Visit: Yes Status: Acute Treatment Plan Patient will be admitted for inpatient psychiatric evaluation, medication adjustment and close monitoring The patient's behavior, mood, sleep and appetite will be closely monitored. Patient will be enrolled in individual and group therapeutic sessions and encouraged to attend. Patient will be provided with a safe and structured environment. Patient's physical health needs will be addressed by the Hospitalist. Hospitalist Consulted Labs including CBC, CMP, Lipid profile and Hemoglobin A1C ordered Social Assessment will be completed and the Product Info Specialist will work with patient and family to ensure a suitable and safe disposition Medication adjustment will be made as clinically indicated No changes today Usual Wellness Confucianist/Preservation: - Start Trazodone 50 mg po QHS - Start Melatonin 5 mg po QHS to promote circadian rhythm The patient agreed on the treatment plan, understood the risk, benefit, alterna tive treatment, potential consequence of no treatment, and gave informed consent. Estimated period of time patient will need to remain in the hospital: [3] Plan for post-hospital care: [outpatient] Medications and Allergies Allergies Allergy/AdvReac Type Severity Reaction Status Date / Time No Known Allergies Allergy Verified 04/21/20 11:22 Home Medications Medication Instructions Recorded Confirmed Last Taken Type Melatonin [Melatonin 5MG CAP] 5 mg PO PRN PRN 04/22/20 04/22/20 2 Days Ago History ~04/20/20 5 mg Active Meds: Active Medications Fish Oil (Fish Oil) 2,000 mg PO BID [facility] Last Admin: 04/29/20 21:21 Dose: 2,000 mg Documented by: Melatonin (Melatonin) 5 mg PO QHS [facility] Last Admin: 04/29/20 21:22 Dose: 5 mg Documented by: Risperidone (Risperdal) 1 mg PO BID [facility] Last Admin: 04/29/20 21:22 Dose: 1 mg Documented by: Trazodone HCl (Desyrel) 50 mg PO QHS [facility] Last Admin: 04/29/20 21:21 Dose: 50 mg Documented by: Results - Results Labs/Vitals: Laboratory Last Values WBC 6.8 K/mm3 (4.5-11.0) 04/23/20 04:53 RBC 4.65 M/mm3 (3.65-5.03) 04/23/20 04:53 Hgb 14.2 gm/dl (11.8-15.2) 04/23/20 04:53 Hct 43.5 % (35.5-45.6) 04/23/20 04:53 MCV 94 fl (84-94) 04/23/20 04:53 MCH 31 pg (28-32) 04/23/20 04:53 MCHC 33 % (32-34) 04/23/20 04:53 RDW 13.7 % (13.2-15.2) 04/23/20 04:53 Plt Count 626 K/mm3 (140-440) H 04/23/20 04:53 [place] % (Auto) [employer] Ground Operations Supervisor 04/23/20 04:53 Add Manual Diff Complete 04/23/20 04:53 Total Counted 100 04/23/20 04:53 Seg Neuts % (Manual) 75.0 % (40.0-70.0) H 04/23/20 04:53 Band Neutrophils % 0 % 04/23/20 04:53 Lymphocytes % (Manual) 11.0 % (13.4-35.0) L 04/23/20 04:53 Reactive Lymphs % (Man) 0 % 04/23/20 04:53 Monocytes % (Manual) 8.0 % (0.0-7.3) H 04/23/20 04:53 Eosinophils % (Manual) 6.0 % (0.0-4.3) H 04/23/20 04:53 Basophils % (Manual) 0 % (0.0-1.8) 04/23/20 04:53 Metamyelocytes % 0 % 04/23/20 04:53 Myelocytes % 0 % 04/23/20 04:53 Promyelocytes % 0 % 04/23/20 04:53 Blast Cells % 0 % 04/23/20 04:53 Nucleated RBC % Not Reportable 04/23/20 04:53 Seg Neutrophils # Man 5.1 K/mm3 (1.8-7.7) 04/23/20 04:53 Band Neutrophils # 0.0 K/mm3 04/23/20 04:53 Lymphocytes # (Manual) 0.7 K/mm3 (1.2-5.4) L 04/23/20 04:53 Abs React Lymphs (Man) 0.0 K/mm3 04/23/20 04:53 Monocytes # (Manual) 0.5 K/mm3 (0.0-0.8) 04/23/20 04:53 Eosinophils # (Manual) 0.4 K/mm3 (0.0-0.4) 04/23/20 04:53 Basophils # (Manual) 0.0 K/mm3 (0.0-0.1) 04/23/20 04:53 Metamyelocytes # 0.0 K/mm3 04/23/20 04:53 Myelocytes # 0.0 K/mm3 04/23/20 04:53 Promyelocytes # 0.0 K/mm3 04/23/20 04:53 Blast Cells # 0.0 K/mm3 04/23/20 04:53 WBC Morphology Not Reportable 04/23/20 04:53 Hypersegmented Neuts Not Reportable 04/23/20 04:53 Hyposegmented Neuts Not Reportable 04/23/20 04:53 Hypogranular Neuts Not Reportable 04/23/20 04:53 Smudge Cells Not Reportable 04/23/20 04:53 Toxic Granulation Not Reportable 04/23/20 04:53 Toxic Vacuolation Not Reportable 04/23/20 04:53 Dohle Bodies Not Reportable 04/23/20 04:53 Pelger-Huet Anomaly Not Reportable 04/23/20 04:53 Kyle Rods Not Reportable 04/23/20 04:53 Platelet Estimate Consistent w auto 04/23/20 04:53 Clumped Platelets Not Reportable 04/23/20 04:53 Plt Clumps, EDTA Not Reportable 04/23/20 04:53 Large Platelets Not Reportable 04/23/20 04:53 Giant Platelets Not Reportable 04/23/20 04:53 Platelet Satelliting Not Reportable 04/23/20 04:53 Plt Morphology Comment Not Reportable 04/23/20 04:53 RBC Morphology Not Reportable 04/23/20 04:53 Dimorphic RBCs Not Reportable 04/23/20 04:53 Polychromasia Not Reportable 04/23/20 04:53 Hypochromasia Not Reportable 04/23/20 04:53 Poikilocytosis Not Reportable 04/23/20 04:53 Anisocytosis 1+ 04/23/20 04:53 Microcytosis Not Reportable 04/23/20 04:53 Macrocytosis Not Reportable 04/23/20 04:53 Spherocytes Not Reportable 04/23/20 04:53 Pappenheimer Bodies Not Reportable 04/23/20 04:53 Sickle Cells Not Reportable 04/23/20 04:53 Target Cells Not Reportable 04/23/20 04:53 Tear Drop Cells Not Reportable 04/23/20 04:53 Ovalocytes Not Reportable 04/23/20 04:53 Helmet Cells Not Reportable 04/23/20 04:53 Mcgarry-[place] Bodies Not Reportable 04/23/20 04:53 [place] Rings Not Reportable 04/23/20 04:53 [place] Cells Not Reportable 04/23/20 04:53 Bite Cells Not Reportable 04/23/20 04:53 Crenated Cell Not Reportable 04/23/20 04:53 Elliptocytes Not Reportable 04/23/20 04:53 Acanthocytes (Spur) Not Reportable 04/23/20 04:53 Rouleaux Not Reportable 04/23/20 04:53 Hemoglobin C Crystals Not Reportable 04/23/20 04:53 Schistocytes Not Reportable 04/23/20 04:53 Malaria parasites Not Reportable 04/23/20 04:53 Willie Bodies Not Reportable 04/23/20 04:53 Hem Pathologist Commnt No 04/23/20 04:53 Sodium 140 mmol/L (137-145) 04/23/20 04:53 Potassium 4.6 mmol/L (3.6-5.0) 04/23/20 04:53 Chloride 106.0 mmol/L (98-107) 04/23/20 04:53 Carbon Dioxide 26 mmol/L (22-30) 04/23/20 04:53 Anion Gap 13 mmol/L 04/23/20 04:53 BUN 22 mg/dL (9-20) H 04/23/20 04:53 Creatinine 0.9 mg/dL (0.8-1.5) 04/23/20 04:53 Estimated GFR > 60 ml/min 04/23/20 04:53 BUN/Creatinine Ratio 24 % 04/23/20 04:53 Glucose 113 mg/dL (75-100) H 04/23/20 04:53 POC Glucose 108 (70-105) H 04/21/20 16:03 Hemoglobin A1c 5.4 % (4-6) 04/23/20 04:53 Calcium 8.9 mg/dL (8.4-10.2) 04/23/20 04:53 Total Bilirubin 0.60 mg/dL (0.1-1.2) 04/23/20 04:53 AST 15 units/L (5-40) 04/23/20 04:53 ALT 15 units/L (7-56) 04/23/20 04:53 Alkaline Phosphatase 50 units/L (35-129) 04/23/20 04:53 Total Protein 5.9 g/dL (6.3-8.2) L 04/23/20 04:53 Albumin 3.8 g/dL (3.9-5) L 04/23/20 04:53 Albumin/Globulin Ratio 1.8 % 04/23/20 04:53 Triglycerides 67 mg/dL (2-149) 04/23/20 04:53 Cholesterol 167 mg/dL (50-199) 04/23/20 04:53 LDL Cholesterol Direct 121 mg/dL (50-130) 04/23/20 04:53 HDL Cholesterol 45 mg/dL (40-59) 04/23/20 04:53 Cholesterol/HDL Ratio 3.71 % 04/23/20 04:53 TSH 2.490 mlU/mL (0.270-4.200) 04/23/20 04:53 Thyroxine (T4) 7.8 ug/dL (4.0-12.0) 04/23/20 04:53 Free T3 Index 3.3 pg/mL (2.3-4.2) 04/23/20 04:53 Last Vital Signs Temp 98.2 F 04/29/20 09:28 Pulse 83 04/29/20 19:55 Resp 18 04/29/20 09:28 BP 126/68 04/29/20 19:55 Pulse Ox 97 04/29/20 19:55
[2020-04-30] MEDS: OMEGA-3 FATTY ACIDS/FISH OIL 1 GRAM CAP PO SCH ×2 (09:39→21:44)
[2020-04-30] MEDS: risperiDONE 1 MG TAB PO SCH ×2 (09:39→21:44)
[2020-04-30] MEDS: MELATONIN 5 MG TAB PO SCH (21:45)
[2020-04-30] MEDS: traZODone 50 MG TAB PO SCH (22:35)
--- NOTE | 2020-05-01 07:36 | Progress Note ---
Subjective Date of service: 05/01/20 Principal diagnosis: (1) Dementia with behavioral disturbance Subjective Comment: Nurse Note: Received in the activity room interacting appropriately with peers. Thought process appear to be cleared. Denies pain, SI, or HI. No acute distress observed and none reported. Will continue to monitor for safety. PSYCH HPI Patient seen this AM, reports doing well, eating and sleeping good. Patient denies having any complaints. Reason for continuing inpatient psychiatric hospitalization: Pt pending placement to facility mostly due to social issues at this time. Psychiatrically stable REVIEW OF SYSTEMS Constitutional: Negative for weight loss ENT: Negative for stridor Respiratory: Negative for cough or hemoptysis All other systems reviewed and are negative MENTAL STATUS EXAMINATION General Appearance and Behavior: Age appropriate, good hygiene, wearing appropriate clothes, lying in bed, good eye contact, cooperative polite with questioning. Cooperation: Participating/engaged Psychomotor Behavior: unremarkable and within normal limits Mood: not good Affect and affective range: congruent with mood Thought Process: Fluent/Logical Thought Content: Within reality Speech: Normal volume, Regular rate and rhythm Intellectual Functioning: Average Suicidal Ideation: Denies SI Homicidal Ideation: Denies HI Impulse Control: Impaired Insight and Judgment: Limited insight and judgment Memory: Poor with intermittent perioid of luciditiy Attention: Normal Orientation: Alert, oriented Diagnoses: Assessment and Plan - Psychiatric problem (1) Dementia with behavioral disturbance Current Visit: Yes Status: Acute Treatment Plan Continue current meds Patient will be admitted for inpatient psychiatric evaluation, medication adjustment and close monitoring The patient's behavior, mood, sleep and appetite will be closely monitored. Patient will be enrolled in individual and group therapeutic sessions and encouraged to attend. Patient will be provided with a safe and structured environment. Patient's physical health needs will be addressed by the Hospitalist. Hospitalist Consulted Labs including CBC, CMP, Lipid profile and Hemoglobin A1C ordered Social Assessment will be completed and the Adjuster Piano Action will work with patient and family to ensure a suitable and safe disposition Medication adjustment will be made as clinically indicated Usual Wellness Yazdanism/Preservation: - Start Trazodone 50 mg po QHS & 50 mg po QHS PRN between 10 PM & 2 AM for insomnia - Start Melatonin 5 mg po QHS to promote circadian rhythm - Start [place]-3 for brain health, reduce impulsivity, and as adjunctive treatment for mood disorder, continue upon discharge given overall benefits. - Start B1 prophylaxis with 200 mg po for 5 days The patient agreed on the treatment plan, understood the risk, benefit, alternative treatment, potential consequence of no treatment, and gave informed consent. Initial Certification This is an acknowledgement statement that RAJINDER JUNE is a 80 y ear old M who requires inpatient psychiatric admission for treatment which could reasonably be expected to improve the patient's condition for his Mental Health Estimated period of time patient will need to remain in the hospital: [2] Plan for post-hospital care: [outpt] Assessment and Plan - Patient Problems (1) Dementia with behavioral disturbance Current Visit: Yes Status: Acute Medications and Allergies Allergies Allergy/AdvReac Type Severity Reaction Status Date / Time No Known Allergies Allergy Verified 04/21/20 11:22 Home Medications Medication Instructions Recorded Confirmed Last Taken Type Melatonin [Melatonin 5MG CAP] 5 mg PO PRN PRN 04/22/20 04/22/20 2 Days Ago History ~04/20/20 5 mg Active Meds: Active Medications Fish Oil (Fish Oil) 2,000 mg PO BID [facility] Last Admin: 04/30/20 21:44 Dose: 2,000 mg Documented by: Melatonin (Melatonin) 5 mg PO QHS [facility] Last Admin: 04/30/20 21:45 Dose: 5 mg Documented by: Risperidone (Risperdal) 1 mg PO BID [facility] Last Admin: 04/30/20 21:44 Dose: 1 mg Documented by: Trazodone HCl (Desyrel) 50 mg PO QHS [facility] Last Admin: 04/30/20 22:35 Dose: Not Given Documented by: Results - Results Labs/Vitals: Laboratory Last Values WBC 6.8 K/mm3 (4.5-11.0) 04/23/20 04:53 RBC 4.65 M/mm3 (3.65-5.03) 04/23/20 04:53 Hgb 14.2 gm/dl (11.8-15.2) 04/23/20 04:53 Hct 43.5 % (35.5-45.6) 04/23/20 04:53 MCV 94 fl (84-94) 04/23/20 04:53 MCH 31 pg (28-32) 04/23/20 04:53 MCHC 33 % (32-34) 04/23/20 04:53 RDW 13.7 % (13.2-15.2) 04/23/20 04:53 Plt Count 626 K/mm3 (140-440) H 04/23/20 04:53 [place] % (Auto) Loan Analyst 04/23/20 04:53 Add Manual Diff Complete 04/23/20 04:53 Total Counted 100 04/23/20 04:53 Seg Neuts % (Manual) 75.0 % (40.0-70.0) H 04/23/20 04:53 Band Neutrophils % 0 % 04/23/20 04:53 Lymphocytes % (Manual) 11.0 % (13.4-35.0) L 04/23/20 04:53 Reactive Lymphs % (Man) 0 % 04/23/20 04:53 Monocytes % (Manual) 8.0 % (0.0-7.3) H 04/23/20 04:53 Eosinophils % (Manual) 6.0 % (0.0-4.3) H 04/23/20 04:53 Basophils % (Manual) 0 % (0.0-1.8) 04/23/20 04:53 Metamyelocytes % 0 % 04/23/20 04:53 Myelocytes % 0 % 04/23/20 04:53 Promyelocytes % 0 % 04/23/20 04:53 Blast Cells % 0 % 04/23/20 04:53 Nucleated RBC % Not Reportable 04/23/20 04:53 Seg Neutrophils # Man 5.1 K/mm3 (1.8-7.7) 04/23/20 04:53 Band Neutrophils # 0.0 K/mm3 04/23/20 04:53 Lymphocytes # (Manual) 0.7 K/mm3 (1.2-5.4) L 04/23/20 04:53 Abs React Lymphs (Man) 0.0 K/mm3 04/23/20 04:53 Monocytes # (Manual) 0.5 K/mm3 (0.0-0.8) 04/23/20 04:53 Eosinophils # (Manual) 0.4 K/mm3 (0.0-0.4) 04/23/20 04:53 Basophils # (Manual) 0.0 K/mm3 (0.0-0.1) 04/23/20 04:53 Metamyelocytes # 0.0 K/mm3 04/23/20 04:53 Myelocytes # 0.0 K/mm3 04/23/20 04:53 Promyelocytes # 0.0 K/mm3 04/23/20 04:53 Blast Cells # 0.0 K/mm3 04/23/20 04:53 WBC Morphology Not Reportable 04/23/20 04:53 Hypersegmented Neuts Not Reportable 04/23/20 04:53 Hyposegmented Neuts Not Reportable 04/23/20 04:53 Hypogranular Neuts Not Reportable 04/23/20 04:53 Smudge Cells Not Reportable 04/23/20 04:53 Toxic Granulation Not Reportable 04/23/20 04:53 Toxic Vacuolation Not Reportable 04/23/20 04:53 Dohle Bodies Not Reportable 04/23/20 04:53 Pelger-Huet Anomaly Not Reportable 04/23/20 04:53 Kyle Rods Not Reportable 04/23/20 04:53 Platelet Estimate Consistent w auto 04/23/20 04:53 Clumped Platelets Not Reportable 04/23/20 04:53 Plt Clumps, EDTA Not Reportable 04/23/20 04:53 Large Platelets Not Reportable 04/23/20 04:53 Giant Platelets Not Reportable 04/23/20 04:53 Platelet Satelliting Not Reportable 04/23/20 04:53 Plt Morphology Comment Not Reportable 04/23/20 04:53 RBC Morphology Not Reportable 04/23/20 04:53 Dimorphic RBCs Not Reportable 04/23/20 04:53 Polychromasia Not Reportable 04/23/20 04:53 Hypochromasia Not Reportable 04/23/20 04:53 Poikilocytosis Not Reportable 04/23/20 04:53 Anisocytosis 1+ 04/23/20 04:53 Microcytosis Not Reportable 04/23/20 04:53 Macrocytosis Not Reportable 04/23/20 04:53 Spherocytes Not Reportable 04/23/20 04:53 Pappenheimer Bodies Not Reportable 04/23/20 04:53 Sickle Cells Not Reportable 04/23/20 04:53 Target Cells Not Reportable 04/23/20 04:53 Tear Drop Cells Not Reportable 04/23/20 04:53 Ovalocytes Not Reportable 04/23/20 04:53 Helmet Cells Not Reportable 04/23/20 04:53 [place] Bodies Not Reportable 04/23/20 04:53 [place] Rings Not Reportable 04/23/20 04:53 [place] Cells Not Reportable 04/23/20 04:53 Bite Cells Not Reportable 04/23/20 04:53 Crenated Cell Not Reportable 04/23/20 04:53 Elliptocytes Not Reportable 04/23/20 04:53 Acanthocytes (Spur) Not Reportable 04/23/20 04:53 Rouleaux Not Reportable 04/23/20 04:53 Hemoglobin C Crystals Not Reportable 04/23/20 04:53 Schistocytes Not Reportable 04/23/20 04:53 Malaria parasites Not Reportable 04/23/20 04:53 Willie Bodies Not Reportable 04/23/20 04:53 Hem Pathologist Commnt No 04/23/20 04:53 Sodium 140 mmol/L (137-145) 04/23/20 04:53 Potassium 4.6 mmol/L (3.6-5.0) 04/23/20 04:53 Chloride 106.0 mmol/L (98-107) 04/23/20 04:53 Carbon Dioxide 26 mmol/L (22-30) 04/23/20 04:53 Anion Gap 13 mmol/L 04/23/20 04:53 BUN 22 mg/dL (9-20) H 04/23/20 04:53 Creatinine 0.9 mg/dL (0.8-1.5) 04/23/20 04:53 Estimated GFR > 60 ml/min 04/23/20 04:53 BUN/Creatinine Ratio 24 % 04/23/20 04:53 Glucose 113 mg/dL (75-100) H 04/23/20 04:53 POC Glucose 108 (70-105) H 04/21/20 16:03 Hemoglobin A1c 5.4 % (4-6) 04/23/20 04:53 Calcium 8.9 mg/dL (8.4-10.2) 04/23/20 04:53 Total Bilirubin 0.60 mg/dL (0.1-1.2) 04/23/20 04:53 AST 15 units/L (5-40) 04/23/20 04:53 ALT 15 units/L (7-56) 04/23/20 04:53 Alkaline Phosphatase 50 units/L (35-129) 04/23/20 04:53 Total Protein 5.9 g/dL (6.3-8.2) L 04/23/20 04:53 Albumin 3.8 g/dL (3.9-5) L 04/23/20 04:53 Albumin/Globulin Ratio 1.8 % 04/23/20 04:53 Triglycerides 67 mg/dL (2-149) 04/23/20 04:53 Cholesterol 167 mg/dL (50-199) 04/23/20 04:53 LDL Cholesterol Direct 121 mg/dL (50-130) 04/23/20 04:53 HDL Cholesterol 45 mg/dL (40-59) 04/23/20 04:53 Cholesterol/HDL Ratio 3.71 % 04/23/20 04:53 TSH 2.490 mlU/mL (0.270-4.200) 04/23/20 04:53 Thyroxine (T4) 7.8 ug/dL (4.0-12.0) 04/23/20 04:53 Free T3 Index 3.3 pg/mL (2.3-4.2) 04/23/20 04:53 Last Vital Signs Temp 98.6 F 04/30/20 07:58 Pulse 75 04/30/20 07:58 Resp 18 04/30/20 07:58 BP 112/61 04/30/20 07:58 Pulse Ox 96 04/30/20 07:58
[2020-05-01] MEDS: OMEGA-3 FATTY ACIDS/FISH OIL 1 GRAM CAP PO SCH ×2 (11:23→21:42)
[2020-05-01] MEDS: risperiDONE 1 MG TAB PO SCH ×2 (11:24→21:42)
[2020-05-01] MEDS: traZODone 50 MG TAB PO SCH (21:42)
[2020-05-01] MEDS: MELATONIN 5 MG TAB PO SCH (21:42)
--- NOTE | 2020-05-02 07:28 | Progress Note ---
Subjective Date of service: 05/02/20 Principal diagnosis: (1) Dementia with behavioral disturbance Subjective Comment: Nurse Note: Patient was awake off and on. He came out of his room thinking it was time to go to group. Patient stated someone told him it was group time. Patient was oriented to time several times and became mildly frustrated that he needed to go back and try to sleep more. He slept a total of around 5 hours. Will continue to monitor patient for safety. PSYCH HPI Patient seen today, easily redirectable, respectable and approachable. Pt interacts with staff and peers without confrontation or increased irritation. Patient denies having any complaints today, says he is good and sleeping okay. Reason for continuing inpatient psychiatric hospitalization: Pt pending placement to facility mostly due to social issues at this time. Step son to be contacted today Psychiatrically stable REVIEW OF SYSTEMS Constitutional: Negative for weight loss ENT: Negative for stridor Respiratory: Negative for cough or hemoptysis All other systems reviewed and are negative MENTAL STATUS EXAMINATION General Appearance and Behavior: Age appropriate, good hygiene, wearing appropriate clothes, lying in bed, good eye contact, cooperative polite with questioning. Cooperation: Participating/engaged Psychomotor Behavior: unremarkable and within normal limits Mood: good Affect and affective range: congruent with mood Thought Process: Fluent/Logical Thought Content: Within reality Speech: Normal volume, Regular rate and rhythm Intellectual Functioning: Average Suicidal Ideation: Denies SI Homicidal Ideation: Denies HI Impulse Control: Impaired Insight and Judgment: Limited insight and judgment Memory: Poor with intermittent perioid of luciditiy Attention: Normal Orientation: Alert, oriented Diagnoses: Assessment and Plan - Psychiatric problem (1) Dementia with behavioral disturbance Current Visit: Yes Status: Acute Treatment Plan Continue current meds Patient will be admitted for inpatient psychiatric evaluation, medication adjustment and close monitoring The patient's behavior, mood, sleep and appetite will be closely monitored. Patient will be enrolled in individual and group therapeutic sessions and encouraged to attend. Patient will be provided with a safe and structured environment. Patient's physical health needs will be addressed by the Hospitalist. Hospitalist Consulted Labs including CBC, CMP, Lipid profile and Hemoglobin A1C ordered Social Assessment will be completed and the Building Services Technician will work with patient and family to ensure a suitable and safe disposition Medication adjustment will be made as clinically indicated Usual Wellness [facility]/Preservation: - Start Trazodone 50 mg po QHS & 50 mg po QHS PRN between 10 PM & 2 AM for insomnia - Start Melatonin 5 mg po QHS to promote circadian rhythm - Start [place]-3 for brain health, reduce impulsivity, and as adjunctive treatment for mood disorder, continue upon discharge given overall benefits. - Start B1 prophylaxis with 200 mg po for 5 days The patient agreed on the treatment plan, understood the risk, benefit, alternative treatment, potential consequence of no treatment, and gave informed consent. Initial Certification This is an acknowledgement statement that RAJINDER JUNE is a 80 year old M who requires inpatient psychiatric admission for treatment which could reasonably be expected to improve the patient's condition for his Mental Health Estimated period of time patient will need to remain in the hospital: [2] Plan for post-hospital care: [outpt] Assessment and Plan - Patient Problems (1) Dementia with behavioral disturbance Current Visit: Yes Status: Acute Medications and Allergies Allergies Allergy/AdvReac Type Severity Reaction Status Date / Time No Known Allergies Allergy Verified 04/21/20 11:22 Home Medications Medication Instructions Recorded Confirmed Last Taken Type Melatonin [Melatonin 5MG CAP] 5 mg PO PRN PRN 04/22/20 04/22/20 2 Days Ago History ~04/20/20 5 mg Active Meds: Active Medications Fish Oil (Fish Oil) 2,000 mg PO BID [facility] Last Admin: 05/01/20 21:42 Dose: 2,000 mg Documented by: Melatonin (Melatonin) 5 mg PO QHS [facility] Last Admin: 05/01/20 21:42 Dose: 5 mg Documented by: Risperidone (Risperdal) 1 mg PO BID [facility] Last Admin: 05/01/20 21:42 Dose: 1 mg Documented by: Trazodone HCl (Desyrel) 50 mg PO QHS [facility] Last Admin: 05/01/20 21:42 Dose: 50 mg Documented by: Results - Results Labs/Vitals: Laboratory Last Values WBC 6.8 K/mm3 (4.5-11.0) 04/23/20 04:53 RBC 4.65 M/mm3 (3.65-5.03) 04/23/20 04:53 Hgb 14.2 gm/dl (11.8-15.2) 04/23/20 04:53 Hct 43.5 % (35.5-45.6) 04/23/20 04:53 MCV 94 fl (84-94) 04/23/20 04:53 MCH 31 pg (28-32) 04/23/20 04:53 MCHC 33 % (32-34) 04/23/20 04:53 RDW 13.7 % (13.2-15.2) 04/23/20 04:53 Plt Count 626 K/mm3 (140-440) H 04/23/20 04:53 [place] % (Auto) Petroleum Inspector 04/23/20 04:53 Add Manual Diff Complete 04/23/20 04:53 Total Counted 100 04/23/20 04:53 Seg Neuts % (Manual) 75.0 % (40.0-70.0) H 04/23/20 04:53 Band Neutrophils % 0 % 04/23/20 04:53 Lymphocytes % (Manual) 11.0 % (13.4-35.0) L 04/23/20 04:53 Reactive Lymphs % (Man) 0 % 04/23/20 04:53 Monocytes % (Manual) 8.0 % (0.0-7.3) H 04/23/20 04:53 Eosinophils % (Manual) 6.0 % (0.0-4.3) H 04/23/20 04:53 Basophils % (Manual) 0 % (0.0-1.8) 04/23/20 04:53 Metamyelocytes % 0 % 04/23/20 04:53 Myelocytes % 0 % 04/23/20 04:53 Promyelocytes % 0 % 04/23/20 04:53 Blast Cells % 0 % 04/23/20 04:53 Nucleated RBC % Not Reportable 04/23/20 04:53 Seg Neutrophils # Man 5.1 K/mm3 (1.8-7.7) 04/23/20 04:53 Band Neutrophils # 0.0 K/mm3 04/23/20 04:53 Lymphocytes # (Manual) 0.7 K/mm3 (1.2-5.4) L 04/23/20 04:53 Abs React Lymphs (Man) 0.0 K/mm3 04/23/20 04:53 Monocytes # (Manual) 0.5 K/mm3 (0.0-0.8) 04/23/20 04:53 Eosinophils # (Manual) 0.4 K/mm3 (0.0-0.4) 04/23/20 04:53 Basophils # (Manual) 0.0 K/mm3 (0.0-0.1) 04/23/20 04:53 Metamyelocytes # 0.0 K/mm3 04/23/20 04:53 Myelocytes # 0.0 K/mm3 04/23/20 04:53 Promyelocytes # 0.0 K/mm3 04/23/20 04:53 Blast Cells # 0.0 K/mm3 04/23/20 04:53 WBC Morphology Not Reportable 04/23/20 04:53 Hypersegmented Neuts Not Reportable 04/23/20 04:53 Hyposegmented Neuts Not Reportable 04/23/20 04:53 Hypogranular Neuts Not Reportable 04/23/20 04:53 Smudge Cells Not Reportable 04/23/20 04:53 Toxic Granulation Not Reportable 04/23/20 04:53 Toxic Vacuolation Not Reportable 04/23/20 04:53 Dohle Bodies Not Reportable 04/23/20 04:53 Pelger-Huet Anomaly Not Reportable 04/23/20 04:53 Kyle Rods Not Reportable 04/23/20 04:53 Platelet Estimate Consistent w auto 04/23/20 04:53 Clumped Platelets Not Reportable 04/23/20 04:53 Plt Clumps, EDTA Not Reportable 04/23/20 04:53 Large Platelets Not Reportable 04/23/20 04:53 Giant Platelets Not Reportable 04/23/20 04:53 Platelet Satelliting Not Reportable 04/23/20 04:53 Plt Morphology Comment Not Reportable 04/23/20 04:53 RBC Morphology Not Reportable 04/23/20 04:53 Dimorphic RBCs Not Reportable 04/23/20 04:53 Polychromasia Not Reportable 04/23/20 04:53 Hypochromasia Not Reportable 04/23/20 04:53 Poikilocytosis Not Reportable 04/23/20 04:53 Anisocytosis 1+ 04/23/20 04:53 Microcytosis Not Reportable 04/23/20 04:53 Macrocytosis Not Reportable 04/23/20 04:53 Spherocytes Not Reportable 04/23/20 04:53 Pappenheimer Bodies Not Reportable 04/23/20 04:53 Sickle Cells Not Reportable 04/23/20 04:53 Target Cells Not Reportable 04/23/20 04:53 Tear Drop Cells Not Reportable 04/23/20 04:53 Ovalocytes Not Reportable 04/23/20 04:53 Helmet Cells Not Reportable 04/23/20 04:53 Mcgarry-[place] Bodies Not Reportable 04/23/20 04:53 [place] Rings Not Reportable 04/23/20 04:53 [place] Cells Not Reportable 04/23/20 04:53 Bite Cells Not Reportable 04/23/20 04:53 Crenated Cell Not Reportable 04/23/20 04:53 Elliptocytes Not Reportable 04/23/20 04:53 Acanthocytes (Spur) Not Reportable 04/23/20 04:53 Rouleaux Not Reportable 04/23/20 04:53 Hemoglobin C Crystals Not Reportable 04/23/20 04:53 Schistocytes Not Reportable 04/23/20 04:53 Malaria parasites Not Reportable 04/23/20 04:53 Willie Bodies Not Reportable 04/23/20 04:53 Hem Pathologist Commnt No 04/23/20 04:53 Sodium 140 mmol/L (137-145) 04/23/20 04:53 Potassium 4.6 mmol/L (3.6-5.0) 04/23/20 04:53 Chloride 106.0 mmol/L (98-107) 04/23/20 04:53 Carbon Dioxide 26 mmol/L (22-30) 04/23/20 04:53 Anion Gap 13 mmol/L 04/23/20 04:53 BUN 22 mg/dL (9-20) H 04/23/20 04:53 Creatinine 0.9 mg/dL (0.8-1.5) 04/23/20 04:53 Estimated GFR > 60 ml/min 04/23/20 04:53 BUN/Creatinine Ratio 24 % 04/23/20 04:53 Glucose 113 mg/dL (75-100) H 04/23/20 04:53 POC Glucose 108 (70-105) H 04/21/20 16:03 Hemoglobin A1c 5.4 % (4-6) 04/23/20 04:53 Calcium 8.9 mg/dL (8.4-10.2) 04/23/20 04:53 Total Bilirubin 0.60 mg/dL (0.1-1.2) 04/23/20 04:53 AST 15 units/L (5-40) 04/23/20 04:53 ALT 15 units/L (7-56) 04/23/20 04:53 Alkaline Phosphatase 50 units/L (35-129) 04/23/20 04:53 Total Protein 5.9 g/dL (6.3-8.2) L 04/23/20 04:53 Albumin 3.8 g/dL (3.9-5) L 04/23/20 04:53 Albumin/Globulin Ratio 1.8 % 04/23/20 04:53 Triglycerides 67 mg/dL (2-149) 04/23/20 04:53 Cholesterol 167 mg/dL (50-199) 04/23/20 04:53 LDL Cholesterol Direct 121 mg/dL (50-130) 04/23/20 04:53 HDL Cholesterol 45 mg/dL (40-59) 04/23/20 04:53 Cholesterol/HDL Ratio 3.71 % 04/23/20 04:53 TSH 2.490 mlU/mL (0.270-4.200) 04/23/20 04:53 Thyroxine (T4) 7.8 ug/dL (4.0-12.0) 04/23/20 04:53 Free T3 Index 3.3 pg/mL (2.3-4.2) 04/23/20 04:53 Last Vital Signs Temp 98.6 F 05/01/20 22:00 Pulse 85 05/01/20 22:00 Resp 18 05/01/20 22:00 BP 141/76 05/01/20 22:00 Pulse Ox 98 05/01/20 22:00
[2020-05-02] MEDS: OMEGA-3 FATTY ACIDS/FISH OIL 1 GRAM CAP PO SCH ×2 (09:49→21:38)
[2020-05-02] MEDS: risperiDONE 1 MG TAB PO SCH ×2 (09:49→21:38)
[2020-05-02] MEDS: traZODone 50 MG TAB PO SCH (21:38)
[2020-05-02] MEDS: MELATONIN 5 MG TAB PO SCH (21:38)
--- NOTE | 2020-05-03 07:35 | Progress Note ---
Subjective Date of service: 05/03/20 Principal diagnosis: (1) Dementia with behavioral disturbance Subjective Comment: Nurse Note: pt spent his evening in activity room watching television, alert and orientedx2, confused but responds to direction, calm and cooperative, medication compliant, good appetite, mood is stable, no report of pain, no distress noted, will continue to monitor for safety. PSYCH HPI Patient reports feeling just fine, no complaints reported. Reason for continuing inpatient psychiatric hospitalization: Pt pending placement to facility mostly due to social issues at this time. Step son to be contacted today Psychiatrically stable REVIEW OF SYSTEMS Constitutional: Negative for weight loss ENT: Negative for stridor Respiratory: Negative for cough or hemoptysis All other systems reviewed and are negative MENTAL STATUS EXAMINATION General Appearance and Behavior: Age appropriate, good hygiene, wearing appropriate clothes, lying in bed, good eye contact, cooperative polite with questioning. Cooperation: Participating/engaged Psychomotor Behavior: unremarkable and within normal limits Mood: good Affect and affective range: congruent with mood Thought Process: Fluent/Logical Thought Content: Within reality Speech: Normal volume, Regular rate and rhythm Intellectual Functioning: Average Suicidal Ideation: Denies SI Homicidal Ideation: Denies HI Impulse Control: Impaired Insight and Judgment: Limited insight and judgment Memory: Poor with intermittent period of luciditiy Attention: Normal Orientation: Alert, oriented Diagnoses: Assessment and Plan - Psychiatric problem (1) Dementia with behavioral disturbance Current Visit: Yes Status: Acute Treatment Plan Continue current meds Patient will be admitted for inpatient psychiatric evaluation, medication adjustment and close monitoring The patient's behavior, mood, sleep and appetite will be closely monitored. Patient will be enrolled in individual and group therapeutic sessions and encouraged to attend. Patient will be provided with a safe and structured environment. Patient's physical health needs will be addressed by the Hospitalist. Hospitalist Consulted Labs including CBC, CMP, Lipid profile and Hemoglobin A1C ordered Social Assessment will be completed and the Camp Director will work with patient and family to ensure a suitable and safe disposition Medication adjustment will be made as clinically indicated Usual Wellness [facility]/Preservation: - Start Trazodone 50 mg po QHS & 50 mg po QHS PRN between 10 PM & 2 AM for insomnia - Start Melatonin 5 mg po QHS to promote circadian rhythm - Start [place]-3 for brain health, reduce impulsivity, and as adjunctive treatment for mood disorder, continue upon discharge given overall benefits. - Start B1 prophylaxis with 200 mg po for 5 days The patient agreed on the treatment plan, understood the risk, benefit, alternative treatment, potential consequence of no treatment, and gave informed consent. Initial Certification This is an acknowledgement statement that RAJINDER JUNE is a 80 year old M who requires inpatient psychiatric admission for treatment which could reasonably be expected to improve the patient's condition for his Mental Health Estimated period of time patient will need to remain in the hospital: [1] Plan for post-hospital care: [outpt] Assessment and Plan - Patient Problems (1) Dementia with behavioral disturbance Current Visit: Yes Status: Acute Medications and Allergies Allergies Allergy/AdvReac Type Severity Reaction Status Date / Time No Known Allergies Allergy Verified 04/21/20 11:22 Home Medications Medication Instructions Recorded Confirmed Last Taken Type Melatonin [Melatonin 5MG CAP] 5 mg PO PRN PRN 04/22/20 04/22/20 2 Days Ago History ~04/20/20 5 mg Active Meds: Active Medications Fish Oil (Fish Oil) 2,000 mg PO BID [facility] Last Admin: 05/02/20 21:38 Dose: 2,000 mg Documented by: Melatonin (Melatonin) 5 mg PO QHS [facility] Last Admin: 05/02/20 21:38 Dose: 5 mg Documented by: Risperidone (Risperdal) 1 mg PO BID [facility] Last Admin: 05/02/20 21:38 Dose: 1 mg Documented by: Trazodone HCl (Desyrel) 50 mg PO QHS [facility] Last Admin: 05/02/20 21:38 Dose: 50 mg Documented by: Results - Results Labs/Vitals: Laboratory Last Values WBC 6.8 K/mm3 (4.5-11.0) 04/23/20 04:53 RBC 4.65 M/mm3 (3.65-5.03) 04/23/20 04:53 Hgb 14.2 gm/dl (11.8-15.2) 04/23/20 04:53 Hct 43.5 % (35.5-45.6) 04/23/20 04:53 MCV 94 fl (84-94) 04/23/20 04:53 MCH 31 pg (28-32) 04/23/20 04:53 MCHC 33 % (32-34) 04/23/20 04:53 RDW 13.7 % (13.2-15.2) 04/23/20 04:53 Plt Count 626 K/mm3 (140-440) H 04/23/20 04:53 [place] % (Auto) Cigar Brander 04/23/20 04:53 Add Manual Diff Complete 04/23/20 04:53 Total Counted 100 04/23/20 04:53 Seg Neuts % (Manual) 75.0 % (40.0-70.0) H 04/23/20 04:53 Band Neutrophils % 0 % 04/23/20 04:53 Lymphocytes % (Manual) 11.0 % (13.4-35.0) L 04/23/20 04:53 Reactive Lymphs % (Man) 0 % 04/23/20 04:53 Monocytes % (Manual) 8.0 % (0.0-7.3) H 04/23/20 04:53 Eosinophils % (Manual) 6.0 % (0.0-4.3) H 04/23/20 04:53 Basophils % (Manual) 0 % (0.0-1.8) 04/23/20 04:53 Metamyelocytes % 0 % 04/23/20 04:53 Myelocytes % 0 % 04/23/20 04:53 Promyelocytes % 0 % 04/23/20 04:53 Blast Cells % 0 % 04/23/20 04:53 Nucleated RBC % Not Reportable 04/23/20 04:53 Seg Neutrophils # Man 5.1 K/mm3 (1.8-7.7) 04/23/20 04:53 Band Neutrophils # 0.0 K/mm3 04/23/20 04:53 Lymphocytes # (Manual) 0.7 K/mm3 (1.2-5.4) L 04/23/20 04:53 Abs React Lymphs (Man) 0.0 K/mm3 04/23/20 04:53 Monocytes # (Manual) 0.5 K/mm3 (0.0-0.8) 04/23/20 04:53 Eosinophils # (Manual) 0.4 K/mm3 (0.0-0.4) 04/23/20 04:53 Basophils # (Manual) 0.0 K/mm3 (0.0-0.1) 04/23/20 04:53 Metamyelocytes # 0.0 K/mm3 04/23/20 04:53 Myelocytes # 0.0 K/mm3 04/23/20 04:53 Promyelocytes # 0.0 K/mm3 04/23/20 04:53 Blast Cells # 0.0 K/mm3 04/23/20 04:53 WBC Morphology Not Reportable 04/23/20 04:53 Hypersegmented Neuts Not Reportable 04/23/20 04:53 Hyposegmented Neuts Not Reportable 04/23/20 04:53 Hypogranular Neuts Not Reportable 04/23/20 04:53 Smudge Cells Not Reportable 04/23/20 04:53 Toxic Granulation Not Reportable 04/23/20 04:53 Toxic Vacuolation Not Reportable 04/23/20 04:53 Dohle Bodies Not Reportable 04/23/20 04:53 Pelger-Huet Anomaly Not Reportable 04/23/20 04:53 Kyle Rods Not Reportable 04/23/20 04:53 Platelet Estimate Consistent w auto 04/23/20 04:53 Clumped Platelets Not Reportable 04/23/20 04:53 Plt Clumps, EDTA Not Reportable 04/23/20 04:53 Large Platelets Not Reportable 04/23/20 04:53 Giant Platelets Not Reportable 04/23/20 04:53 Platelet Satelliting Not Reportable 04/23/20 04:53 Plt Morphology Comment Not Reportable 04/23/20 04:53 RBC Morphology Not Reportable 04/23/20 04:53 Dimorphic RBCs Not Reportable 04/23/20 04:53 Polychromasia Not Reportable 04/23/20 04:53 Hypochromasia Not Reportable 04/23/20 04:53 Poikilocytosis Not Reportable 04/23/20 04:53 Anisocytosis 1+ 04/23/20 04:53 Microcytosis Not Reportable 04/23/20 04:53 Macrocytosis Not Reportable 04/23/20 04:53 Spherocytes Not Reportable 04/23/20 04:53 Pappenheimer Bodies Not Reportable 04/23/20 04:53 Sickle Cells Not Reportable 04/23/20 04:53 Target Cells Not Reportable 04/23/20 04:53 Tear Drop Cells Not Reportable 04/23/20 04:53 Ovalocytes Not Reportable 04/23/20 04:53 Helmet Cells Not Reportable 04/23/20 04:53 Mcgarry-[place] Bodies Not Reportable 04/23/20 04:53 [place] Rings Not Reportable 04/23/20 04:53 [place] Cells Not Reportable 04/23/20 04:53 Bite Cells Not Reportable 04/23/20 04:53 Crenated Cell Not Reportable 04/23/20 04:53 Elliptocytes Not Reportable 04/23/20 04:53 Acanthocytes (Spur) Not Reportable 04/23/20 04:53 Rouleaux Not Reportable 04/23/20 04:53 Hemoglobin C Crystals Not Reportable 04/23/20 04:53 Schistocytes Not Reportable 04/23/20 04:53 Malaria parasites Not Reportable 04/23/20 04:53 Willie Bodies Not Reportable 04/23/20 04:53 Hem Pathologist Commnt No 04/23/20 04:53 Sodium 140 mmol/L (137-145) 04/23/20 04:53 Potassium 4.6 mmol/L (3.6-5.0) 04/23/20 04:53 Chloride 106.0 mmol/L (98-107) 04/23/20 04:53 Carbon Dioxide 26 mmol/L (22-30) 04/23/20 04:53 Anion Gap 13 mmol/L 04/23/20 04:53 BUN 22 mg/dL (9-20) H 04/23/20 04:53 Creatinine 0.9 mg/dL (0.8-1.5) 04/23/20 04:53 Estimated GFR > 60 ml/min 04/23/20 04:53 BUN/Creatinine Ratio 24 % 04/23/20 04:53 Glucose 113 mg/dL (75-100) H 04/23/20 04:53 POC Glucose 108 (70-105) H 04/21/20 16:03 Hemoglobin A1c 5.4 % (4-6) 04/23/20 04:53 Calcium 8.9 mg/dL (8.4-10.2) 04/23/20 04:53 Total Bilirubin 0.60 mg/dL (0.1-1.2) 04/23/20 04:53 AST 15 units/L (5-40) 04/23/20 04:53 ALT 15 units/L (7-56) 04/23/20 04:53 Alkaline Phosphatase 50 units/L (35-129) 04/23/20 04:53 Total Protein 5.9 g/dL (6.3-8.2) L 04/23/20 04:53 Albumin 3.8 g/dL (3.9-5) L 04/23/20 04:53 Albumin/Globulin Ratio 1.8 % 04/23/20 04:53 Triglycerides 67 mg/dL (2-149) 04/23/20 04:53 Cholesterol 167 mg/dL (50-199) 04/23/20 04:53 LDL Cholesterol Direct 121 mg/dL (50-130) 04/23/20 04:53 HDL Cholesterol 45 mg/dL (40-59) 04/23/20 04:53 Cholesterol/HDL Ratio 3.71 % 04/23/20 04:53 TSH 2.490 mlU/mL (0.270-4.200) 04/23/20 04:53 Thyroxine (T4) 7.8 ug/dL (4.0-12.0) 04/23/20 04:53 Free T3 Index 3.3 pg/mL (2.3-4.2) 04/23/20 04:53 Last Vital Signs Temp 99.2 F 05/02/20 22:00 Pulse 77 05/02/20 22:00 Resp 18 05/02/20 22:00 BP 107/65 05/02/20 22:00 Pulse Ox 97 05/02/20 22:00
[2020-05-03] MEDS: OMEGA-3 FATTY ACIDS/FISH OIL 1 GRAM CAP PO SCH ×2 (11:32→21:35)
[2020-05-03] MEDS: risperiDONE 1 MG TAB PO SCH ×2 (11:33→21:35)
[2020-05-03] MEDS: MELATONIN 5 MG TAB PO SCH (21:35)
[2020-05-03] MEDS: traZODone 50 MG TAB PO SCH (21:36)
--- NOTE | 2020-05-04 07:29 | Progress Note ---
Subjective Date of service: 05/04/20 Principal diagnosis: (1) Dementia with behavioral disturbance Subjective Comment: Nurse Note: 1413 Patient a/o x 1-2 sitting in the activity room calm and cooperative all day quiet and interacts with peers. Medications compliant, no distress noted, will continue to monitor. PSYCH HPI Patient notes reviewed, he has been calm and cooperative, no behavioral disturbances noted. Pt pleasant and smily on examination, replies his good to prompts and eating by self. No disturbances observed. Reason for continuing inpatient psychiatric hospitalization: Plan to discharge with social sciences instructor. REVIEW OF SYSTEMS Constitutional: Negative for weight loss ENT: Negative for stridor Respiratory: Negative for cough or hemoptysis All other systems reviewed and are negative MENTAL STATUS EXAMINATION General Appearance and Behavior: Age appropriate, good hygiene, wearing appropriate clothes, lying in bed, good eye contact, cooperative polite with questioning. Cooperation: Participating/engaged Psychomotor Behavior: unremarkable and within normal limits Mood: good Affect and affective range: congruent with mood Thought Process: Fluent/Logical Thought Content: Within reality Speech: Normal volume, Regular rate and rhythm Intellectual Functioning: Average Suicidal Ideation: Denies SI Homicidal Ideation: Denies HI Impulse Control: Impaired Insight and Judgment: Limited insight and judgment Memory: Poor with intermittent period of luciditiy Attention: Normal Orientation: Alert, oriented Diagnoses: Assessment and Plan - Psychiatric problem (1) Dementia with behavioral disturbance Current Visit: Yes Status: Acute Treatment Plan Continue current meds Patient will be admitted for inpatient psychiatric evaluation, medication adjustment and close monitoring The patient's behavior, mood, sleep and appetite will be closely monitored. Patient will be enrolled in individual and group therapeutic sessions and encouraged to attend. Patient will be provided with a safe and structured environment. Patient's physical health needs will be addressed by the Hospitalist. Hospitalist Consulted Labs including CBC, CMP, Lipid profile and Hemoglobin A1C ordered Social Assessment will be completed and the Project Management Intern will work with patient and family to ensure a suitable and safe disposition Medication adjustment will be made as clinically indicated Usual Wellness Zoroastrianism/Preservation: - Start Trazodone 50 mg po QHS & 50 mg po QHS PRN between 10 PM & 2 AM for insomnia - Start Melatonin 5 mg po QHS to promote circadian rhythm - Start [place]-3 for brain health, reduce impulsivity, and as adjunctive treatment for mood disorder, continue upon discharge given overall benefits. - Start B1 prophylaxis with 200 mg po for 5 days The patient agreed on the treatment plan, understood the risk, benefit, alternative treatment, potential consequence of no treatment, and gave informed consent. Initial Certification This is an acknowledgement statement that RAJINDER JUNE is a 80 year old M who requires inpatient psychiatric admission for treatment which could reasonably be expected to improve the patient's condition for his Mental Health Estimated period of time patient will need to remain in the hospital: [1] Plan for post-hospital care: [outpt] Assessment and Plan - Patient Problems (1) Dementia with behavioral disturbance Current Visit: Yes Status: Acute Medications and Allergies Allergies Allergy/AdvReac Type Severity Reaction Status Date / Time No Known Allergies Allergy Verified 04/21/20 11:22 Home Medications Medication Instructions Recorded Confirmed Last Taken Type Melatonin [Melatonin 5MG CAP] 5 mg PO PRN PRN 04/22/20 04/22/20 2 Days Ago History ~04/20/20 5 mg Active Meds: Active Medications Fish Oil (Fish Oil) 2,000 mg PO BID [facility] Last Admin: 05/03/20 21:35 Dose: 2,000 mg Documented by: Melatonin (Melatonin) 5 mg PO QHS [facility] Last Admin: 05/03/20 21:35 Dose: 5 mg Documented by: Risperidone (Risperdal) 1 mg PO BID [facility] Last Admin: 05/03/20 21:35 Dose: 1 mg Documented by: Trazodone HCl (Desyrel) 50 mg PO QHS [facility] Last Admin: 05/03/20 21:36 Dose: 50 mg Documented by: Results - Results Labs/Vitals: Laboratory Last Values WBC 6.8 K/mm3 (4.5-11.0) 04/23/20 04:53 RBC 4.65 M/mm3 (3.65-5.03) 04/23/20 04:53 Hgb 14.2 gm/dl (11.8-15.2) 04/23/20 04:53 Hct 43.5 % (35.5-45.6) 04/23/20 04:53 MCV 94 fl (84-94) 04/23/20 04:53 MCH 31 pg (28-32) 04/23/20 04:53 MCHC 33 % (32-34) 04/23/20 04:53 RDW 13.7 % (13.2-15.2) 04/23/20 04:53 Plt Count 626 K/mm3 (140-440) H 04/23/20 04:53 [place] % (Auto) Pin Sorter And Bagger 04/23/20 04:53 Add Manual Diff Complete 04/23/20 04:53 Total Counted 100 04/23/20 04:53 Seg Neuts % (Manual) 75.0 % (40.0-70.0) H 04/23/20 04:53 Band Neutrophils % 0 % 04/23/20 04:53 Lymphocytes % (Manual) 11.0 % (13.4-35.0) L 04/23/20 04:53 Reactive Lymphs % (Man) 0 % 04/23/20 04:53 Monocytes % (Manual) 8.0 % (0.0-7.3) H 04/23/20 04:53 Eosinophils % (Manual) 6.0 % (0.0-4.3) H 04/23/20 04:53 Basophils % (Manual) 0 % (0.0-1.8) 04/23/20 04:53 Metamyelocytes % 0 % 04/23/20 04:53 Myelocytes % 0 % 04/23/20 04:53 Promyelocytes % 0 % 04/23/20 04:53 Blast Cells % 0 % 04/23/20 04:53 Nucleated RBC % Not Reportable 04/23/20 04:53 Seg Neutrophils # Man 5.1 K/mm3 (1.8-7.7) 04/23/20 04:53 Band Neutrophils # 0.0 K/mm3 04/23/20 04:53 Lymphocytes # (Manual) 0.7 K/mm3 (1.2-5.4) L 04/23/20 04:53 Abs React Lymphs (Man) 0.0 K/mm3 04/23/20 04:53 Monocytes # (Manual) 0.5 K/mm3 (0.0-0.8) 04/23/20 04:53 Eosinophils # (Manual) 0.4 K/mm3 (0.0-0.4) 04/23/20 04:53 Basophils # (Manual) 0.0 K/mm3 (0.0-0.1) 04/23/20 04:53 Metamyelocytes # 0.0 K/mm3 04/23/20 04:53 Myelocytes # 0.0 K/mm3 04/23/20 04:53 Promyelocytes # 0.0 K/mm3 04/23/20 04:53 Blast Cells # 0.0 K/mm3 04/23/20 04:53 WBC Morphology Not Reportable 04/23/20 04:53 Hypersegmented Neuts Not Reportable 04/23/20 04:53 Hyposegmented Neuts Not Reportable 04/23/20 04:53 Hypogranular Neuts Not Reportable 04/23/20 04:53 Smudge Cells Not Reportable 04/23/20 04:53 Toxic Granulation Not Reportable 04/23/20 04:53 Toxic Vacuolation Not Reportable 04/23/20 04:53 Dohle Bodies Not Reportable 04/23/20 04:53 Pelger-Huet Anomaly Not Reportable 04/23/20 04:53 Kyle Rods Not Reportable 04/23/20 04:53 Platelet Estimate Consistent w auto 04/23/20 04:53 Clumped Platelets Not Reportable 04/23/20 04:53 Plt Clumps, EDTA Not Reportable 04/23/20 04:53 Large Platelets Not Reportable 04/23/20 04:53 Giant Platelets Not Reportable 04/23/20 04:53 Platelet Satelliting Not Reportable 04/23/20 04:53 Plt Morphology Comment Not Reportable 04/23/20 04:53 RBC Morphology Not Reportable 04/23/20 04:53 Dimorphic RBCs Not Reportable 04/23/20 04:53 Polychromasia Not Reportable 04/23/20 04:53 Hypochromasia Not Reportable 04/23/20 04:53 Poikilocytosis Not Reportable 04/23/20 04:53 Anisocytosis 1+ 04/23/20 04:53 Microcytosis Not Reportable 04/23/20 04:53 Macrocytosis Not Reportable 04/23/20 04:53 Spherocytes Not Reportable 04/23/20 04:53 Pappenheimer Bodies Not Reportable 04/23/20 04:53 Sickle Cells Not Reportable 04/23/20 04:53 Target Cells Not Reportable 04/23/20 04:53 Tear Drop Cells Not Reportable 04/23/20 04:53 Ovalocytes Not Reportable 04/23/20 04:53 Helmet Cells Not Reportable 04/23/20 04:53 Mcgarry-[place] Bodies Not Reportable 04/23/20 04:53 [place] Rings Not Reportable 04/23/20 04:53 Pablo Cells Not Reportable 04/23/20 04:53 Bite Cells Not Reportable 04/23/20 04:53 Crenated Cell Not Reportable 04/23/20 04:53 Elliptocytes Not Reportable 04/23/20 04:53 Acanthocytes (Spur) Not Reportable 04/23/20 04:53 Rouleaux Not Reportable 04/23/20 04:53 Hemoglobin C Crystals Not Reportable 04/23/20 04:53 Schistocytes Not Reportable 04/23/20 04:53 Malaria parasites Not Reportable 04/23/20 04:53 Willie Bodies Not Reportable 04/23/20 04:53 Hem Pathologist Commnt No 04/23/20 04:53 Sodium 140 mmol/L (137-145) 04/23/20 04:53 Potassium 4.6 mmol/L (3.6-5.0) 04/23/20 04:53 Chloride 106.0 mmol/L (98-107) 04/23/20 04:53 Carbon Dioxide 26 mmol/L (22-30) 04/23/20 04:53 Anion Gap 13 mmol/L 04/23/20 04:53 BUN 22 mg/dL (9-20) H 04/23/20 04:53 Creatinine 0.9 mg/dL (0.8-1.5) 04/23/20 04:53 Estimated GFR > 60 ml/min 04/23/20 04:53 BUN/Creatinine Ratio 24 % 04/23/20 04:53 Glucose 113 mg/dL (75-100) H 04/23/20 04:53 POC Glucose 108 (70-105) H 04/21/20 16:03 Hemoglobin A1c 5.4 % (4-6) 04/23/20 04:53 Calcium 8.9 mg/dL (8.4-10.2) 04/23/20 04:53 Total Bilirubin 0.60 mg/dL (0.1-1.2) 04/23/20 04:53 AST 15 units/L (5-40) 04/23/20 04:53 ALT 15 units/L (7-56) 04/23/20 04:53 Alkaline Phosphatase 50 units/L (35-129) 04/23/20 04:53 Total Protein 5.9 g/dL (6.3-8.2) L 04/23/20 04:53 Albumin 3.8 g/dL (3.9-5) L 04/23/20 04:53 Albumin/Globulin Ratio 1.8 % 04/23/20 04:53 Triglycerides 67 mg/dL (2-149) 04/23/20 04:53 Cholesterol 167 mg/dL (50-199) 04/23/20 04:53 LDL Cholesterol Direct 121 mg/dL (50-130) 04/23/20 04:53 HDL Cholesterol 45 mg/dL (40-59) 04/23/20 04:53 Cholesterol/HDL Ratio 3.71 % 04/23/20 04:53 TSH 2.490 mlU/mL (0.270-4.200) 04/23/20 04:53 Thyroxine (T4) 7.8 ug/dL (4.0-12.0) 04/23/20 04:53 Free T3 Index 3.3 pg/mL (2.3-4.2) 04/23/20 04:53 Last Vital Signs Temp 97.6 F 05/03/20 08:41 Pulse 74 05/03/20 08:41 Resp 16 05/03/20 08:41 BP 116/57 05/03/20 08:41 Pulse Ox 100 05/03/20 08:41
[2020-05-04] MEDS: OMEGA-3 FATTY ACIDS/FISH OIL 1 GRAM CAP PO SCH ×2 (09:59→21:36)
[2020-05-04] MEDS: risperiDONE 1 MG TAB PO SCH ×2 (09:59→21:36)
[2020-05-04] MEDS: MELATONIN 5 MG TAB PO SCH (21:36)
[2020-05-04] MEDS: traZODone 50 MG TAB PO SCH (21:36)
--- NOTE | 2020-05-05 07:30 | Progress Note ---
Subjective Date of service: 05/05/20 Principal diagnosis: (1) Dementia with behavioral disturbance Subjective Comment: Nurse Note: pt spent his evening in activity room interacting with peers, pt is alert and oriented to person, calm and cooperative, able to express needs, no behavioral issue, good appetite, medication compliant, no complaints voiced, no distress noted, will continue to monitor for safety PSYCH HPI Patient seen in room this AM, Reason for continuing inpatient psychiatric hospitalization: Plan to discharge with social work msw. REVIEW OF SYSTEMS Constitutional: Negative for weight loss ENT: Negative for stridor Respiratory: Negative for cough or hemoptysis All other systems reviewed and are negative MENTAL STATUS EXAMINATION General Appearance and Behavior: Age appropriate, good hygiene, wearing appropriate clothes, lying in bed, good eye contact, cooperative polite with questioning. Cooperation: Participating/engaged Psychomotor Behavior: unremarkable and within normal limits Mood: good Affect and affective range: congruent with mood Thought Process: Fluent/Logical Thought Content: Within reality Speech: Normal volume, Regular rate and rhythm Intellectual Functioning: Average Suicidal Ideation: Denies SI Homicidal Ideation: Denies HI Impulse Control: Impaired Insight and Judgment: Limited insight and judgment Memory: Poor with intermittent period of luciditiy Attention: Normal Orientation: Alert, oriented Diagnoses: Assessment and Plan - Psychiatric problem (1) Dementia with behavioral disturbance Current Visit: Yes Status: Acute Treatment Plan Continue current meds Patient will be admitted for inpatient psychiatric evaluation, medication adjustment and close monitoring The patient's behavior, mood, sleep and appetite will be closely monitored. Patient will be enrolled in individual and group therapeutic sessions and encouraged to attend. Patient will be provided with a safe and structured environment. Patient's physical health needs will be addressed by the Hospitalist. Hospitalist Consulted Labs including CBC, CMP, Lipid profile and Hemoglobin A1C ordered Social Assessment will be completed and the Test Director will work with patient and family to ensure a suitable and safe disposition Medication adjustment will be made as clinically indicated Usual Wellness Rastafarian/Preservation: - Start Trazodone 50 mg po QHS & 50 mg po QHS PRN between 10 PM & 2 AM for insomnia - Start Melatonin 5 mg po QHS to promote circadian rhythm - Start [place]-3 for brain health, reduce impulsivity, and as adjunctive treatment for mood disorder, continue upon discharge given overall benefits. - Start B1 prophylaxis with 200 mg po for 5 days The patient agreed on the treatment plan, understood the risk, benefit, alternative treatment, potential consequence of no treatment, and gave informed consent. Initial Certification This is an acknowledgement statement that RAJINDER JUNE is a 80 year old M who requires inpatient psychiatric admission for treatment which could reasonably be expected to improve the patient's condition for his Mental Health Estimated period of time patient will need to remain in the hospital: [1] Plan for post-hospital care: [outpt] Assessment and Plan - Patient Problems (1) Dementia with behavioral disturbance Current Visit: Yes Status: Acute Medications and Allergies Allergies Allergy/AdvReac Type Severity Reaction Status Date / Time No Known Allergies Allergy Verified 04/21/20 11:22 Home Medications Medication Instructions Recorded Confirmed Last Taken Type Melatonin [Melatonin 5MG CAP] 5 mg PO PRN PRN 04/22/20 04/22/20 2 Days Ago History ~04/20/20 5 mg Active Meds: Active Medications Fish Oil (Fish Oil) 2,000 mg PO BID [facility] Last Admin: 05/04/20 21:36 Dose: 2,000 mg Documented by: Melatonin (Melatonin) 5 mg PO QHS [facility] Last Admin: 05/04/20 21:36 Dose: 5 mg Documented by: Risperidone (Risperdal) 1 mg PO BID [facility] Last Admin: 05/04/20 21:36 Dose: 1 mg Documented by: Trazodone HCl (Desyrel) 50 mg PO QHS [facility] Last Admin: 05/04/20 21:36 Dose: 50 mg Documented by: Results - Results Labs/Vitals: Laboratory Last Values WBC 6.8 K/mm3 (4.5-11.0) 04/23/20 04:53 RBC 4.65 M/mm3 (3.65-5.03) 04/23/20 04:53 Hgb 14.2 gm/dl (11.8-15.2) 04/23/20 04:53 Hct 43.5 % (35.5-45.6) 04/23/20 04:53 MCV 94 fl (84-94) 04/23/20 04:53 MCH 31 pg (28-32) 04/23/20 04:53 MCHC 33 % (32-34) 04/23/20 04:53 RDW 13.7 % (13.2-15.2) 04/23/20 04:53 Plt Count 626 K/mm3 (140-440) H 04/23/20 04:53 [place] % (Auto) Provider Relations Manager 04/23/20 04:53 Add Manual Diff Complete 04/23/20 04:53 Total Counted 100 04/23/20 04:53 Seg Neuts % (Manual) 75.0 % (40.0-70.0) H 04/23/20 04:53 Band Neutrophils % 0 % 04/23/20 04:53 Lymphocytes % (Manual) 11.0 % (13.4-35.0) L 04/23/20 04:53 Reactive Lymphs % (Man) 0 % 04/23/20 04:53 Monocytes % (Manual) 8.0 % (0.0-7.3) H 04/23/20 04:53 Eosinophils % (Manual) 6.0 % (0.0-4.3) H 04/23/20 04:53 Basophils % (Manual) 0 % (0.0-1.8) 04/23/20 04:53 Metamyelocytes % 0 % 04/23/20 04:53 Myelocytes % 0 % 04/23/20 04:53 Promyelocytes % 0 % 04/23/20 04:53 Blast Cells % 0 % 04/23/20 04:53 Nucleated RBC % Not Reportable 04/23/20 04:53 Seg Neutrophils # Man 5.1 K/mm3 (1.8-7.7) 04/23/20 04:53 Band Neutrophils # 0.0 K/mm3 04/23/20 04:53 Lymphocytes # (Manual) 0.7 K/mm3 (1.2-5.4) L 04/23/20 04:53 Abs React Lymphs (Man) 0.0 K/mm3 04/23/20 04:53 Monocytes # (Manual) 0.5 K/mm3 (0.0-0.8) 04/23/20 04:53 Eosinophils # (Manual) 0.4 K/mm3 (0.0-0.4) 04/23/20 04:53 Basophils # (Manual) 0.0 K/mm3 (0.0-0.1) 04/23/20 04:53 Metamyelocytes # 0.0 K/mm3 04/23/20 04:53 Myelocytes # 0.0 K/mm3 04/23/20 04:53 Promyelocytes # 0.0 K/mm3 04/23/20 04:53 Blast Cells # 0.0 K/mm3 04/23/20 04:53 WBC Morphology Not Reportable 04/23/20 04:53 Hypersegmented Neuts Not Reportable 04/23/20 04:53 Hyposegmented Neuts Not Reportable 04/23/20 04:53 Hypogranular Neuts Not Reportable 04/23/20 04:53 Smudge Cells Not Reportable 04/23/20 04:53 Toxic Granulation Not Reportable 04/23/20 04:53 Toxic Vacuolation Not Reportable 04/23/20 04:53 Dohle Bodies Not Reportable 04/23/20 04:53 Pelger-Huet Anomaly Not Reportable 04/23/20 04:53 Kyle Rods Not Reportable 04/23/20 04:53 Platelet Estimate Consistent w auto 04/23/20 04:53 Clumped Platelets Not Reportable 04/23/20 04:53 Plt Clumps, EDTA Not Reportable 04/23/20 04:53 Large Platelets Not Reportable 04/23/20 04:53 Giant Platelets Not Reportable 04/23/20 04:53 Platelet Satelliting Not Reportable 04/23/20 04:53 Plt Morphology Comment Not Reportable 04/23/20 04:53 RBC Morphology Not Reportable 04/23/20 04:53 Dimorphic RBCs Not Reportable 04/23/20 04:53 Polychromasia Not Reportable 04/23/20 04:53 Hypochromasia Not Reportable 04/23/20 04:53 Poikilocytosis Not Reportable 04/23/20 04:53 Anisocytosis 1+ 04/23/20 04:53 Microcytosis Not Reportable 04/23/20 04:53 Macrocytosis Not Reportable 04/23/20 04:53 Spherocytes Not Reportable 04/23/20 04:53 Pappenheimer Bodies Not Reportable 04/23/20 04:53 Sickle Cells Not Reportable 04/23/20 04:53 Target Cells Not Reportable 04/23/20 04:53 Tear Drop Cells Not Reportable 04/23/20 04:53 Ovalocytes Not Reportable 04/23/20 04:53 Helmet Cells Not Reportable 04/23/20 04:53 Mcgarry-[place] Bodies Not Reportable 04/23/20 04:53 [place] Rings Not Reportable 04/23/20 04:53 Pablo Cells Not Reportable 04/23/20 04:53 Bite Cells Not Reportable 04/23/20 04:53 Crenated Cell Not Reportable 04/23/20 04:53 Elliptocytes Not Reportable 04/23/20 04:53 Acanthocytes (Spur) Not Reportable 04/23/20 04:53 Rouleaux Not Reportable 04/23/20 04:53 Hemoglobin C Crystals Not Reportable 04/23/20 04:53 Schistocytes Not Reportable 04/23/20 04:53 Malaria parasites Not Reportable 04/23/20 04:53 Willie Bodies Not Reportable 04/23/20 04:53 Hem Pathologist Commnt No 04/23/20 04:53 Sodium 140 mmol/L (137-145) 04/23/20 04:53 Potassium 4.6 mmol/L (3.6-5.0) 04/23/20 04:53 Chloride 106.0 mmol/L (98-107) 04/23/20 04:53 Carbon Dioxide 26 mmol/L (22-30) 04/23/20 04:53 Anion Gap 13 mmol/L 04/23/20 04:53 BUN 22 mg/dL (9-20) H 04/23/20 04:53 Creatinine 0.9 mg/dL (0.8-1.5) 04/23/20 04:53 Estimated GFR > 60 ml/min 04/23/20 04:53 BUN/Creatinine Ratio 24 % 04/23/20 04:53 Glucose 113 mg/dL (75-100) H 04/23/20 04:53 POC Glucose 108 (70-105) H 04/21/20 16:03 Hemoglobin A1c 5.4 % (4-6) 04/23/20 04:53 Calcium 8.9 mg/dL (8.4-10.2) 04/23/20 04:53 Total Bilirubin 0.60 mg/dL (0.1-1.2) 04/23/20 04:53 AST 15 units/L (5-40) 04/23/20 04:53 ALT 15 units/L (7-56) 04/23/20 04:53 Alkaline Phosphatase 50 units/L (35-129) 04/23/20 04:53 Total Protein 5.9 g/dL (6.3-8.2) L 04/23/20 04:53 Albumin 3.8 g/dL (3.9-5) L 04/23/20 04:53 Albumin/Globulin Ratio 1.8 % 04/23/20 04:53 Triglycerides 67 mg/dL (2-149) 04/23/20 04:53 Cholesterol 167 mg/dL (50-199) 04/23/20 04:53 LDL Cholesterol Direct 121 mg/dL (50-130) 04/23/20 04:53 HDL Cholesterol 45 mg/dL (40-59) 04/23/20 04:53 Cholesterol/HDL Ratio 3.71 % 04/23/20 04:53 TSH 2.490 mlU/mL (0.270-4.200) 04/23/20 04:53 Thyroxine (T4) 7.8 ug/dL (4.0-12.0) 04/23/20 04:53 Free T3 Index 3.3 pg/mL (2.3-4.2) 04/23/20 04:53 Last Vital Signs Temp 98.4 F 05/04/20 20:23 Pulse 79 05/04/20 20:23 Resp 18 05/04/20 20:23 BP 128/76 05/04/20 20:23 Pulse Ox 98 05/04/20 20:23
[2020-05-05] MEDS: risperiDONE 1 MG TAB PO SCH ×2 (10:21→21:15)
[2020-05-05] MEDS: OMEGA-3 FATTY ACIDS/FISH OIL 1 GRAM CAP PO SCH ×2 (10:21→21:15)
--- NOTE | 2020-05-05 15:26 | XRay Report ---
CHEST 1 VIEW INDICATION / CLINICAL INFORMATION: TB CHECK protocol. Cough. COMPARISON: None available. FINDINGS: SUPPORT DEVICES: None. HEART / MEDIASTINUM: No significant abnormality. LUNGS / PLEURA: No significant pulmonary or pleural abnormality. No pneumothorax. ADDITIONAL FINDINGS: No significant additional findings. IMPRESSION: 1. No acute findings. Signer Name: Ahsan Cole MD Signed: 05/05/2020 3:21 PM Workstation Name: [id number]
[2020-05-05] MEDS: MELATONIN 5 MG TAB PO SCH (21:15)
[2020-05-05] MEDS: traZODone 50 MG TAB PO SCH (21:15)
--- NOTE | 2020-05-06 09:44 | Progress Note ---
Subjective Date of service: 05/06/20 Principal diagnosis: (1) Dementia with behavioral disturbance Subjective Comment: The patient's medical record was reviewed and the patient's progress was discussed with the nursing staff. During my interview with the patient this morning, he is sitting in the dayroom. He appears withdrawn. He is pleasantly confused. He says he's "doing well." He says he slept "good." The patient denies SI/HI or hallucinations of any kind. Reason for continued inpatient treatment: The patient is at his baseline, but he is unable to care for himself. Will plan for a safe discharge once placement is secured. REVIEW OF SYSTEMS Constitutional: Negative for weight loss ENT: Negative for stridor Respiratory: Negative for cough or hemoptysis All other systems reviewed and are negative MENTAL STATUS EXAMINATION General Appearance: Dressed appropriately Behavior: Calm and, cooperative Mood: "well" Affect and affective range: Congruent with stated mood Speech: Normal tone and pace Thought Process: Confused Thought Content Suicidal Ideation: Denies SI Homicidal Ideation: Denies HI Hallucinations: Denies Delusions: None elicited Insight and Judgment: Limited insight and judgment Memory/Cognition: Impaired Assessment (1) Dementia with behavioral disturbance Current Visit: Yes Status: Acute Treatment Plan Patient will be admitted for inpatient psychiatric evaluation, medication adjustment and close monitoring The patient's behavior, mood, sleep and appetite will be closely monitored. Patient will be enrolled in individual and group therapeutic sessions and encouraged to attend. Patient will be provided with a safe and structured environment. Patient's physical health needs will be addressed by the Hospitalist. Hospitalist Consulted Labs including CBC, CMP, Lipid profile and Hemoglobin A1C ordered Chest XR ordered to r/o TB for placement Social Assessment will be completed and the Developmental Mathematics Instructor will work with patient and family to ensure a suitable and safe disposition Medication adjustment will be made as clinically indicated No changes today Usual Wellness Worship/Preservation: - Start Trazodone 50 mg po QHS - Start Melatonin 5 mg po QHS to promote circadian rhythm The patient agreed on the treatment plan, understood the risk, benefit, alternative treatment, potential consequence of no treatment, and gave informed consent. Estimated period of time patient will need to remain in the hospital: [3] Plan for post-hospital care: [outpatient] Medications and Allergies Allergies Allergy/AdvReac Type Severity Reaction Status Date / Time No Known Allergies Allergy Verified 04/21/20 11:22 Home Medications Medication Instructions Recorded Confirmed Last Taken Type Melatonin [Melatonin 5MG CAP] 5 mg PO PRN PRN 04/22/20 04/22/20 2 Days Ago History ~04/20/20 5 mg Active Meds: Active Medications Fish Oil (Fish Oil) 2,000 mg PO BID [facility] Last Admin: 05/05/20 21:15 Dose: 2,000 mg Documented by: Melatonin (Melatonin) 5 mg PO QHS [facility] Last Admin: 05/05/20 21:15 Dose: 5 mg Documented by: Risperidone (Risperdal) 1 mg PO BID [facility] Last Admin: 05/05/20 21:15 Dose: 1 mg Documented by: Trazodone HCl (Desyrel) 50 mg PO QHS [facility] Last Admin: 05/05/20 21:15 Dose: 50 mg Documented by: Results - Results Labs/Vitals: Laboratory Last Values WBC 6.8 K/mm3 (4.5-11.0) 04/23/20 04:53 RBC 4.65 M/mm3 (3.65-5.03) 04/23/20 04:53 Hgb 14.2 gm/dl (11.8-15.2) 04/23/20 04:53 Hct 43.5 % (35.5-45.6) 04/23/20 04:53 MCV 94 fl (84-94) 04/23/20 04:53 MCH 31 pg (28-32) 04/23/20 04:53 MCHC 33 % (32-34) 04/23/20 04:53 RDW 13.7 % (13.2-15.2) 04/23/20 04:53 Plt Count 626 K/mm3 (140-440) H 04/23/20 04:53 [place] % (Auto) Finishing And Shipping Supervisor 04/23/20 04:53 Add Manual Diff Complete 04/23/20 04:53 Total Counted 100 04/23/20 04:53 Seg Neuts % (Manual) 75.0 % (40.0-70.0) H 04/23/20 04:53 Band Neutrophils % 0 % 04/23/20 04:53 Lymphocytes % (Manual) 11.0 % (13.4-35.0) L 04/23/20 04:53 Reactive Lymphs % (Man) 0 % 04/23/20 04:53 Monocytes % (Manual) 8.0 % (0.0-7.3) H 04/23/20 04:53 Eosinophils % (Manual) 6.0 % (0.0-4.3) H 04/23/20 04:53 Basophils % (Manual) 0 % (0.0-1.8) 04/23/20 04:53 Metamyelocytes % 0 % 04/23/20 04:53 Myelocytes % 0 % 04/23/20 04:53 Promyelocytes % 0 % 04/23/20 04:53 Blast Cells % 0 % 04/23/20 04:53 Nucleated RBC % Not Reportable 04/23/20 04:53 Seg Neutrophils # Man 5.1 K/mm3 (1.8-7.7) 04/23/20 04:53 Band Neutrophils # 0.0 K/mm3 04/23/20 04:53 Lymphocytes # (Manual) 0.7 K/mm3 (1.2-5.4) L 04/23/20 04:53 Abs React Lymphs (Man) 0.0 K/mm3 04/23/20 04:53 Monocytes # (Manual) 0.5 K/mm3 (0.0-0.8) 04/23/20 04:53 Eosinophils # (Manual) 0.4 K/mm3 (0.0-0.4) 04/23/20 04:53 Basophils # (Manual) 0.0 K/mm3 (0.0-0.1) 04/23/20 04:53 Metamyelocytes # 0.0 K/mm3 04/23/20 04:53 Myelocytes # 0.0 K/mm3 04/23/20 04:53 Promyelocytes # 0.0 K/mm3 04/23/20 04:53 Blast Cells # 0.0 K/mm3 04/23/20 04:53 WBC Morphology Not Reportable 04/23/20 04:53 Hypersegmented Neuts Not Reportable 04/23/20 04:53 Hyposegmented Neuts Not Reportable 04/23/20 04:53 Hypogranular Neuts Not Reportable 04/23/20 04:53 Smudge Cells Not Reportable 04/23/20 04:53 Toxic Granulation Not Reportable 04/23/20 04:53 Toxic Vacuolation Not Reportable 04/23/20 04:53 Dohle Bodies Not Reportable 04/23/20 04:53 Pelger-Huet Anomaly Not Reportable 04/23/20 04:53 Kyle Rods Not Reportable 04/23/20 04:53 Platelet Estimate Consistent w auto 04/23/20 04:53 Clumped Platelets Not Reportable 04/23/20 04:53 Plt Clumps, EDTA Not Reportable 04/23/20 04:53 Large Platelets Not Reportable 04/23/20 04:53 Giant Platelets Not Reportable 04/23/20 04:53 Platelet Satelliting Not Reportable 04/23/20 04:53 Plt Morphology Comment Not Reportable 04/23/20 04:53 RBC Morphology Not Reportable 04/23/20 04:53 Dimorphic RBCs Not Reportable 04/23/20 04:53 Polychromasia Not Reportable 04/23/20 04:53 Hypochromasia Not Reportable 04/23/20 04:53 Poikilocytosis Not Reportable 04/23/20 04:53 Anisocytosis 1+ 04/23/20 04:53 Microcytosis Not Reportable 04/23/20 04:53 Macrocytosis Not Reportable 04/23/20 04:53 Spherocytes Not Reportable 04/23/20 04:53 Pappenheimer Bodies Not Reportable 04/23/20 04:53 Sickle Cells Not Reportable 04/23/20 04:53 Target Cells Not Reportable 04/23/20 04:53 Tear Drop Cells Not Reportable 04/23/20 04:53 Ovalocytes Not Reportable 04/23/20 04:53 Helmet Cells Not Reportable 04/23/20 04:53 [place] Bodies Not Reportable 04/23/20 04:53 [place] Rings Not Reportable 04/23/20 04:53 [place] Cells Not Reportable 04/23/20 04:53 Bite Cells Not Reportable 04/23/20 04:53 Crenated Cell Not Reportable 04/23/20 04:53 Elliptocytes Not Reportable 04/23/20 04:53 Acanthocytes (Spur) Not Reportable 04/23/20 04:53 Rouleaux Not Reportable 04/23/20 04:53 Hemoglobin C Crystals Not Reportable 04/23/20 04:53 Schistocytes Not Reportable 04/23/20 04:53 Malaria parasites Not Reportable 04/23/20 04:53 Willie Bodies Not Reportable 04/23/20 04:53 Hem Pathologist Commnt No 04/23/20 04:53 Sodium 140 mmol/L (137-145) 04/23/20 04:53 Potassium 4.6 mmol/L (3.6-5.0) 04/23/20 04:53 Chloride 106.0 mmol/L (98-107) 04/23/20 04:53 Carbon Dioxide 26 mmol/L (22-30) 04/23/20 04:53 Anion Gap 13 mmol/L 04/23/20 04:53 BUN 22 mg/dL (9-20) H 04/23/20 04:53 Creatinine 0.9 mg/dL (0.8-1.5) 04/23/20 04:53 Estimated GFR > 60 ml/min 04/23/20 04:53 BUN/Creatinine Ratio 24 % 04/23/20 04:53 Glucose 113 mg/dL (75-100) H 04/23/20 04:53 POC Glucose 108 (70-105) H 04/21/20 16:03 Hemoglobin A1c 5.4 % (4-6) 04/23/20 04:53 Calcium 8.9 mg/dL (8.4-10.2) 04/23/20 04:53 Total Bilirubin 0.60 mg/dL (0.1-1.2) 04/23/20 04:53 AST 15 units/L (5-40) 04/23/20 04:53 ALT 15 units/L (7-56) 04/23/20 04:53 Alkaline Phosphatase 50 units/L (35-129) 04/23/20 04:53 Total Protein 5.9 g/dL (6.3-8.2) L 04/23/20 04:53 Albumin 3.8 g/dL (3.9-5) L 04/23/20 04:53 Albumin/Globulin Ratio 1.8 % 04/23/20 04:53 Triglycerides 67 mg/dL (2-149) 04/23/20 04:53 Cholesterol 167 mg/dL (50-199) 04/23/20 04:53 LDL Cholesterol Direct 121 mg/dL (50-130) 04/23/20 04:53 HDL Cholesterol 45 mg/dL (40-59) 04/23/20 04:53 Cholesterol/HDL Ratio 3.71 % 04/23/20 04:53 TSH 2.490 mlU/mL (0.270-4.200) 04/23/20 04:53 Thyroxine (T4) 7.8 ug/dL (4.0-12.0) 04/23/20 04:53 Free T3 Index 3.3 pg/mL (2.3-4.2) 04/23/20 04:53 Last Vital Signs Temp 98.3 F 05/05/20 09:41 Pulse 64 05/05/20 09:41 Resp 18 05/05/20 09:41 BP 129/72 05/05/20 09:41 Pulse Ox 96 05/05/20 09:41
[2020-05-06] MEDS: risperiDONE 1 MG TAB PO SCH ×2 (10:28→21:13)
[2020-05-06] MEDS: OMEGA-3 FATTY ACIDS/FISH OIL 1 GRAM CAP PO SCH ×2 (10:28→21:12)
[2020-05-06] MEDS: traZODone 50 MG TAB PO SCH (21:13)
[2020-05-06] MEDS: MELATONIN 5 MG TAB PO SCH (21:13)
--- NOTE | 2020-05-07 08:15 | Progress Note ---
Subjective Date of service: 05/07/20 Principal diagnosis: (1) Dementia with behavioral disturbance Subjective Comment: The patient's medical record was reviewed and the patient's progress was discussed with the nursing staff. The nurse note states the patient is visible on the unit prior to bedtime. Complies with tx regimens. Participated in group. No behavioral issue noted overnight. COVID-19 test noted negative. During my interview with the patient this morning, he is standing in the day room. He is pleasantly confused. The patient asks for a cup of coffee. He denies SI/HI or hallucinations of any kind. He says he feels "fine." The patient denies any problems with his appetite or sleep cycle. Reason for continued inpatient treatment: The patient is at his baseline, but he is unable to care for himself. Will plan for a safe discharge once placement is secured. REVIEW OF SYSTEMS Constitutional: Negative for weight loss ENT: Negative for stridor Respiratory: Negative for cough or hemoptysis All other systems reviewed and are negative MENTAL STATUS EXAMINATION General Appearance: Dressed appropriately Behavior: Calm and, cooperative Mood: "fine" Affect and affective range: Congruent with stated mood Speech: Normal tone and pace Thought Process: Confused Thought Content Suicidal Ideation: Denies SI Homicidal Ideation: Denies HI Hallucinations: Denies Delusions: None elicited Insight and Judgment: Limited insight and judgment Memory/Cognition: Impaired Assessment (1) Dementia with behavioral disturbance Current Visit: Yes Status: Acute Treatment Plan Patient will be admitted for inpatient psychiatric evaluation, medication adjustment and close monitoring The patient's behavior, mood, sleep and appetite will be closely monitored. Patient will be enrolled in individual and group therapeutic sessions and encouraged to attend. Patient will be provided with a safe and structured environment. Patient's physical health needs will be addressed by the Hospitalist. Hospitalist Consulted Labs including CBC, CMP, Lipid profile and Hemoglobin A1C ordered Social Assessment will be completed and the Merchandiser Retail Representative will work with patient and family to ensure a suitable and safe disposition Medication adjustment will be made as clinically indicated No changes today Usual Wellness Mandaeism/Preservation: - Start Trazodone 50 mg po QHS - Start Melatonin 5 mg po QHS to promote circadian rhythm The patient agreed on the treatment plan, understood the risk, benefit, alternative treatment, potential consequence of no treatment, and gave informed consent. Estimated period of time patient will need to remain in the hospital: [3] Plan for post-hospital care: [outpatient] Medications and Allergies Allergies Allergy/AdvReac Type Severity Reaction Status Date / Time No Known Allergies Allergy Verified 04/21/20 11:22 Home Medications Medication Instructions Recorded Confirmed Last Taken Type Melatonin [Melatonin 5MG CAP] 5 mg PO PRN PRN 04/22/20 04/22/20 2 Days Ago History ~04/20/20 5 mg Active Meds: Active Medications Fish Oil (Fish Oil) 2,000 mg PO BID [facility] Last Admin: 05/06/20 21:12 Dose: 2,000 mg Documented by: Melatonin (Melatonin) 5 mg PO QHS [facility] Last Admin: 05/06/20 21:13 Dose: 5 mg Documented by: Risperidone (Risperdal) 1 mg PO BID [facility] Last Admin: 05/06/20 21:13 Dose: 1 mg Documented by: Trazodone HCl (Desyrel) 50 mg PO QHS [facility] Last Admin: 05/06/20 21:13 Dose: 50 mg Documented by: Results - Results Labs/Vitals: Laboratory Last Values WBC 6.8 K/mm3 (4.5-11.0) 04/23/20 04:53 RBC 4.65 M/mm3 (3.65-5.03) 04/23/20 04:53 Hgb 14.2 gm/dl (11.8-15.2) 04/23/20 04:53 Hct 43.5 % (35.5-45.6) 04/23/20 04:53 MCV 94 fl (84-94) 04/23/20 04:53 MCH 31 pg (28-32) 04/23/20 04:53 MCHC 33 % (32-34) 04/23/20 04:53 RDW 13.7 % (13.2-15.2) 04/23/20 04:53 Plt Count 626 K/mm3 (140-440) H 04/23/20 04:53 [place] % (Auto) Aeronautical Test Engineer 04/23/20 04:53 Add Manual Diff Complete 04/23/20 04:53 Total Counted 100 04/23/20 04:53 Seg Neuts % (Manual) 75.0 % (40.0-70.0) H 04/23/20 04:53 Band Neutrophils % 0 % 04/23/20 04:53 Lymphocytes % (Manual) 11.0 % (13.4-35.0) L 04/23/20 04:53 Reactive Lymphs % (Man) 0 % 04/23/20 04:53 Monocytes % (Manual) 8.0 % (0.0-7.3) H 04/23/20 04:53 Eosinophils % (Manual) 6.0 % (0.0-4.3) H 04/23/20 04:53 Basophils % (Manual) 0 % (0.0-1.8) 04/23/20 04:53 Metamyelocytes % 0 % 04/23/20 04:53 Myelocytes % 0 % 04/23/20 04:53 Promyelocytes % 0 % 04/23/20 04:53 Blast Cells % 0 % 04/23/20 04:53 Nucleated RBC % Not Reportable 04/23/20 04:53 Seg Neutrophils # Man 5.1 K/mm3 (1.8-7.7) 04/23/20 04:53 Band Neutrophils # 0.0 K/mm3 04/23/20 04:53 Lymphocytes # (Manual) 0.7 K/mm3 (1.2-5.4) L 04/23/20 04:53 Abs React Lymphs (Man) 0.0 K/mm3 04/23/20 04:53 Monocytes # (Manual) 0.5 K/mm3 (0.0-0.8) 04/23/20 04:53 Eosinophils # (Manual) 0.4 K/mm3 (0.0-0.4) 04/23/20 04:53 Basophils # (Manual) 0.0 K/mm3 (0.0-0.1) 04/23/20 04:53 Metamyelocytes # 0.0 K/mm3 04/23/20 04:53 Myelocytes # 0.0 K/mm3 04/23/20 04:53 Promyelocytes # 0.0 K/mm3 04/23/20 04:53 Blast Cells # 0.0 K/mm3 04/23/20 04:53 WBC Morphology Not Reportable 04/23/20 04:53 Hypersegmented Neuts Not Reportable 04/23/20 04:53 Hyposegmented Neuts Not Reportable 04/23/20 04:53 Hypogranular Neuts Not Reportable 04/23/20 04:53 Smudge Cells Not Reportable 04/23/20 04:53 Toxic Granulation Not Reportable 04/23/20 04:53 Toxic Vacuolation Not Reportable 04/23/20 04:53 Dohle Bodies Not Reportable 04/23/20 04:53 Pelger-Huet Anomaly Not Reportable 04/23/20 04:53 Kyle Rods Not Reportable 04/23/20 04:53 Platelet Estimate Consistent w auto 04/23/20 04:53 Clumped Platelets Not Reportable 04/23/20 04:53 Plt Clumps, EDTA Not Reportable 04/23/20 04:53 Large Platelets Not Reportable 04/23/20 04:53 Giant Platelets Not Reportable 04/23/20 04:53 Platelet Satelliting Not Reportable 04/23/20 04:53 Plt Morphology Comment Not Reportable 04/23/20 04:53 RBC Morphology Not Reportable 04/23/20 04:53 Dimorphic RBCs Not Reportable 04/23/20 04:53 Polychromasia Not Reportable 04/23/20 04:53 Hypochromasia Not Reportable 04/23/20 04:53 Poikilocytosis Not Reportable 04/23/20 04:53 Anisocytosis 1+ 04/23/20 04:53 Microcytosis Not Reportable 04/23/20 04:53 Macrocytosis Not Reportable 04/23/20 04:53 Spherocytes Not Reportable 04/23/20 04:53 Pappenheimer Bodies Not Reportable 04/23/20 04:53 Sickle Cells Not Reportable 04/23/20 04:53 Target Cells Not Reportable 04/23/20 04:53 Tear Drop Cells Not Reportable 04/23/20 04:53 Ovalocytes Not Reportable 04/23/20 04:53 Helmet Cells Not Reportable 04/23/20 04:53 [place]gar[place] Bodies Not Reportable 04/23/20 04:53 [place] Rings Not Reportable 04/23/20 04:53 [place] Cells Not Reportable 04/23/20 04:53 Bite Cells Not Reportable 04/23/20 04:53 Crenated Cell Not Reportable 04/23/20 04:53 Elliptocytes Not Reportable 04/23/20 04:53 Acanthocytes (Spur) Not Reportable 04/23/20 04:53 Rouleaux Not Reportable 04/23/20 04:53 Hemoglobin C Crystals Not Reportable 04/23/20 04:53 Schistocytes Not Reportable 04/23/20 04:53 Malaria parasites Not Reportable 04/23/20 04:53 Willie Bodies Not Reportable 04/23/20 04:53 Hem Pathologist Commnt No 04/23/20 04:53 Sodium 140 mmol/L (137-145) 04/23/20 04:53 Potassium 4.6 mmol/L (3.6-5.0) 04/23/20 04:53 Chloride 106.0 mmol/L (98-107) 04/23/20 04:53 Carbon Dioxide 26 mmol/L (22-30) 04/23/20 04:53 Anion Gap 13 mmol/L 04/23/20 04:53 BUN 22 mg/dL (9-20) H 04/23/20 04:53 Creatinine 0.9 mg/dL (0.8-1.5) 04/23/20 04:53 Estimated GFR > 60 ml/min 04/23/20 04:53 BUN/Creatinine Ratio 24 % 04/23/20 04:53 Glucose 113 mg/dL (75-100) H 04/23/20 04:53 POC Glucose 108 (70-105) H 04/21/20 16:03 Hemoglobin A1c 5.4 % (4-6) 04/23/20 04:53 Calcium 8.9 mg/dL (8.4-10.2) 04/23/20 04:53 Total Bilirubin 0.60 mg/dL (0.1-1.2) 04/23/20 04:53 AST 15 units/L (5-40) 04/23/20 04:53 ALT 15 units/L (7-56) 04/23/20 04:53 Alkaline Phosphatase 50 units/L (35-129) 04/23/20 04:53 Total Protein 5.9 g/dL (6.3-8.2) L 04/23/20 04:53 Albumin 3.8 g/dL (3.9-5) L 04/23/20 04:53 Albumin/Globulin Ratio 1.8 % 04/23/20 04:53 Triglycerides 67 mg/dL (2-149) 04/23/20 04:53 Cholesterol 167 mg/dL (50-199) 04/23/20 04:53 LDL Cholesterol Direct 121 mg/dL (50-130) 04/23/20 04:53 HDL Cholesterol 45 mg/dL (40-59) 04/23/20 04:53 Cholesterol/HDL Ratio 3.71 % 04/23/20 04:53 TSH 2.490 mlU/mL (0.270-4.200) 04/23/20 04:53 Thyroxine (T4) 7.8 ug/dL (4.0-12.0) 04/23/20 04:53 Free T3 Index 3.3 pg/mL (2.3-4.2) 04/23/20 04:53 Coronavirus (PCR) Negative (Negative) 05/05/20 Unknown Last Vital Signs Temp 99.0 F 05/06/20 22:00 Pulse 80 05/06/20 22:00 Resp 20 05/06/20 22:00 BP 112/66 05/06/20 22:00 Pulse Ox 96 05/06/20 22:00
[2020-05-07] MEDS: OMEGA-3 FATTY ACIDS/FISH OIL 1 GRAM CAP PO SCH ×2 (09:34→21:14)
[2020-05-07] MEDS: risperiDONE 1 MG TAB PO SCH ×2 (09:35→21:15)
[2020-05-07] MEDS: MELATONIN 5 MG TAB PO SCH (21:14)
[2020-05-07] MEDS: traZODone 50 MG TAB PO SCH (21:15)
--- NOTE | 2020-05-08 08:22 | Progress Note ---
Subjective Date of service: 05/08/20 Principal diagnosis: (1) Dementia with behavioral disturbance Subjective Comment: The patient's medical record was reviewed and the patient's progress was discussed with the nursing staff. The nurse note states the patient is alert and oriented to person, pleasantly confused, no agitation, calm and cooperative, medication compliant, good appetite, interacts appropriately with selected peers. During my interview with the patient this morning, he is sitting in the dayroom. He is pleasantly confused. He is calm and cooperative. The patient says his mood is "good." He says he slept "okay." The patient denies SI/HI or hallucinations of any kind. Reason for continued inpatient treatment: The patient is at his baseline, but he is unable to care for himself. Will plan for a safe discharge once placement is secured. REVIEW OF SYSTEMS Constitutional: Negative for weight loss ENT: Negative for stridor Respiratory: Negative for cough or hemoptysis All other systems reviewed and are negative MENTAL STATUS EXAMINATION General Appearance: Dressed appropriately Behavior: Calm and, cooperative Mood: "fine" Affect and affective range: Congruent with stated mood Speech: Normal tone and pace Thought Process: Confused Thought Content Suicidal Ideation: Denies SI Homicidal Ideation: Denies HI Hallucinations: Denies Delusions: None elicited Insight and Judgment: Limited insight and judgment Memory/Cognition: Impaired Assessment (1) Dementia with behavioral disturbance Current Visit: Yes Status: Acute Treatment Plan Patient will be admitted for inpatient psychiatric evaluation, medication adjustment and close monitoring The patient's behavior, mood, sleep and appetite will be closely monitored. Patient will be enrolled in individual and group therapeutic sessions and encouraged to attend. Patient will be provided with a safe and structured environment. Patient's physical health needs will be addressed by the Hospitalist. Hospitalist Consulted Labs including CBC, CMP, Lipid profile and Hemoglobin A1C ordered Social Assessment will be completed and the Multimedia Manager will work with patient and family to ensure a suitable and safe disposition Medication adjustment will be made as clinically indicated No changes today Usual Wellness Denominational/Preservation: - Start Trazodone 50 mg po QHS - Start Melatonin 5 mg po QHS to promote circadian rhythm The patient agreed on the treatment plan, understood the risk, benefit, alternative treatment, potential consequence of no treatment, and gave informed consent. Estimated period of time patient will need to remain in the hospital: [3] Plan for post-hospital care: [outpatient] Medications and Allergies Allergies Allergy/AdvReac Type Severity Reaction Status Date / Time No Known Allergies Allergy Verified 04/21/20 11:22 Home Medications Medication Instructions Recorded Confirmed Last Taken Type Melatonin [Melatonin 5MG CAP] 5 mg PO PRN PRN 04/22/20 04/22/20 2 Days Ago History ~04/20/20 5 mg Active Meds: Active Medications Fish Oil (Fish Oil) 2,000 mg PO BID [facility] Last Admin: 05/07/20 21:14 Dose: 2,000 mg Documented by: Melatonin (Melatonin) 5 mg PO QHS [facility] Last Admin: 05/07/20 21:14 Dose: 5 mg Documented by: Risperidone (Risperdal) 1 mg PO BID [facility] Last Admin: 05/07/20 21:15 Dose: 1 mg Documented by: Trazodone HCl (Desyrel) 50 mg PO QHS [facility] Last Admin: 05/07/20 21:15 Dose: 50 mg Documented by: Results - Results Labs/Vitals: Laboratory Last Values WBC 6.8 K/mm3 (4.5-11.0) 04/23/20 04:53 RBC 4.65 M/mm3 (3.65-5.03) 04/23/20 04:53 Hgb 14.2 gm/dl (11.8-15.2) 04/23/20 04:53 Hct 43.5 % (35.5-45.6) 04/23/20 04:53 MCV 94 fl (84-94) 04/23/20 04:53 MCH 31 pg (28-32) 04/23/20 04:53 MCHC 33 % (32-34) 04/23/20 04:53 RDW 13.7 % (13.2-15.2) 04/23/20 04:53 Plt Count 626 K/mm3 (140-440) H 04/23/20 04:53 [place] % (Auto) Dry Ice Machine Operator 04/23/20 04:53 Add Manual Diff Complete 04/23/20 04:53 Total Counted 100 04/23/20 04:53 Seg Neuts % (Manual) 75.0 % (40.0-70.0) H 04/23/20 04:53 Band Neutrophils % 0 % 04/23/20 04:53 Lymphocytes % (Manual) 11.0 % (13.4-35.0) L 04/23/20 04:53 Reactive Lymphs % (Man) 0 % 04/23/20 04:53 Monocytes % (Manual) 8.0 % (0.0-7.3) H 04/23/20 04:53 Eosinophils % (Manual) 6.0 % (0.0-4.3) H 04/23/20 04:53 Basophils % (Manual) 0 % (0.0-1.8) 04/23/20 04:53 Metamyelocytes % 0 % 04/23/20 04:53 Myelocytes % 0 % 04/23/20 04:53 Promyelocytes % 0 % 04/23/20 04:53 Blast Cells % 0 % 04/23/20 04:53 Nucleated RBC % Not Reportable 04/23/20 04:53 Seg Neutrophils # Man 5.1 K/mm3 (1.8-7.7) 04/23/20 04:53 Band Neutrophils # 0.0 K/mm3 04/23/20 04:53 Lymphocytes # (Manual) 0.7 K/mm3 (1.2-5.4) L 04/23/20 04:53 Abs React Lymphs (Man) 0.0 K/mm3 04/23/20 04:53 Monocytes # (Manual) 0.5 K/mm3 (0.0-0.8) 04/23/20 04:53 Eosinophils # (Manual) 0.4 K/mm3 (0.0-0.4) 04/23/20 04:53 Basophils # (Manual) 0.0 K/mm3 (0.0-0.1) 04/23/20 04:53 Metamyelocytes # 0.0 K/mm3 04/23/20 04:53 Myelocytes # 0.0 K/mm3 04/23/20 04:53 Promyelocytes # 0.0 K/mm3 04/23/20 04:53 Blast Cells # 0.0 K/mm3 04/23/20 04:53 WBC Morphology Not Reportable 04/23/20 04:53 Hypersegmented Neuts Not Reportable 04/23/20 04:53 Hyposegmented Neuts Not Reportable 04/23/20 04:53 Hypogranular Neuts Not Reportable 04/23/20 04:53 Smudge Cells Not Reportable 04/23/20 04:53 Toxic Granulation Not Reportable 04/23/20 04:53 Toxic Vacuolation Not Reportable 04/23/20 04:53 Dohle Bodies Not Reportable 04/23/20 04:53 Pelger-Huet Anomaly Not Reportable 04/23/20 04:53 Kyle Rods Not Reportable 04/23/20 04:53 Platelet Estimate Consistent w auto 04/23/20 04:53 Clumped Platelets Not Reportable 04/23/20 04:53 Plt Clumps, EDTA Not Reportable 04/23/20 04:53 Large Platelets Not Reportable 04/23/20 04:53 Giant Platelets Not Reportable 04/23/20 04:53 Platelet Satelliting Not Reportable 04/23/20 04:53 Plt Morphology Comment Not Reportable 04/23/20 04:53 RBC Morphology Not Reportable 04/23/20 04:53 Dimorphic RBCs Not Reportable 04/23/20 04:53 Polychromasia Not Reportable 04/23/20 04:53 Hypochromasia Not Reportable 04/23/20 04:53 Poikilocytosis Not Reportable 04/23/20 04:53 Anisocytosis 1+ 04/23/20 04:53 Microcytosis Not Reportable 04/23/20 04:53 Macrocytosis Not Reportable 04/23/20 04:53 Spherocytes Not Reportable 04/23/20 04:53 Pappenheimer Bodies Not Reportable 04/23/20 04:53 Sickle Cells Not Reportable 04/23/20 04:53 Target Cells Not Reportable 04/23/20 04:53 Tear Drop Cells Not Reportable 04/23/20 04:53 Ovalocytes Not Reportable 04/23/20 04:53 Helmet Cells Not Reportable 04/23/20 04:53 [place] Bodies Not Reportable 04/23/20 04:53 [place] Rings Not Reportable 04/23/20 04:53 Pablo Cells Not Reportable 04/23/20 04:53 Bite Cells Not Reportable 04/23/20 04:53 Crenated Cell Not Reportable 04/23/20 04:53 Elliptocytes Not Reportable 04/23/20 04:53 Acanthocytes (Spur) Not Reportable 04/23/20 04:53 Rouleaux Not Reportable 04/23/20 04:53 Hemoglobin C Crystals Not Reportable 04/23/20 04:53 Schistocytes Not Reportable 04/23/20 04:53 Malaria parasites Not Reportable 04/23/20 04:53 Willie Bodies Not Reportable 04/23/20 04:53 Hem Pathologist Commnt No 04/23/20 04:53 Sodium 140 mmol/L (137-145) 04/23/20 04:53 Potassium 4.6 mmol/L (3.6-5.0) 04/23/20 04:53 Chloride 106.0 mmol/L (98-107) 04/23/20 04:53 Carbon Dioxide 26 mmol/L (22-30) 04/23/20 04:53 Anion Gap 13 mmol/L 04/23/20 04:53 BUN 22 mg/dL (9-20) H 04/23/20 04:53 Creatinine 0.9 mg/dL (0.8-1.5) 04/23/20 04:53 Estimated GFR > 60 ml/min 04/23/20 04:53 BUN/Creatinine Ratio 24 % 04/23/20 04:53 Glucose 113 mg/dL (75-100) H 04/23/20 04:53 POC Glucose 108 (70-105) H 04/21/20 16:03 Hemoglobin A1c 5.4 % (4-6) 04/23/20 04:53 Calcium 8.9 mg/dL (8.4-10.2) 04/23/20 04:53 Total Bilirubin 0.60 mg/dL (0.1-1.2) 04/23/20 04:53 AST 15 units/L (5-40) 04/23/20 04:53 ALT 15 units/L (7-56) 04/23/20 04:53 Alkaline Phosphatase 50 units/L (35-129) 04/23/20 04:53 Total Protein 5.9 g/dL (6.3-8.2) L 04/23/20 04:53 Albumin 3.8 g/dL (3.9-5) L 04/23/20 04:53 Albumin/Globulin Ratio 1.8 % 04/23/20 04:53 Triglycerides 67 mg/dL (2-149) 04/23/20 04:53 Cholesterol 167 mg/dL (50-199) 04/23/20 04:53 LDL Cholesterol Direct 121 mg/dL (50-130) 04/23/20 04:53 HDL Cholesterol 45 mg/dL (40-59) 04/23/20 04:53 Cholesterol/HDL Ratio 3.71 % 04/23/20 04:53 TSH 2.490 mlU/mL (0.270-4.200) 04/23/20 04:53 Thyroxine (T4) 7.8 ug/dL (4.0-12.0) 04/23/20 04:53 Free T3 Index 3.3 pg/mL (2.3-4.2) 04/23/20 04:53 Coronavirus (PCR) Negative (Negative) 05/05/20 Unknown Last Vital Signs Temp 98.5 F 05/07/20 22:00 Pulse 70 05/07/20 22:00 Resp 18 05/07/20 22:00 BP 143/64 05/07/20 22:00 Pulse Ox 98 05/07/20 22:00
[2020-05-08] MEDS: OMEGA-3 FATTY ACIDS/FISH OIL 1 GRAM CAP PO SCH ×2 (09:40→21:04)
[2020-05-08] MEDS: risperiDONE 1 MG TAB PO SCH ×2 (09:41→21:04)
[2020-05-08] MEDS: MELATONIN 5 MG TAB PO SCH (21:04)
[2020-05-08] MEDS: traZODone 50 MG TAB PO SCH (21:04)
--- NOTE | 2020-05-09 07:34 | Progress Note ---
Subjective Date of service: 05/09/20 Principal diagnosis: (1) Dementia with behavioral disturbance Subjective Comment: The patient's medical record was reviewed and the patient's progress was discussed with the nursing staff. During my interview with the patient this morning, he is in his room getting ready to walk to the dayroom. He is pleasantly confused. He is calm and cooperative. The patient says his mood is "good." He says he slept "okay." When asked about SI/HI, the patient states, "oh no, I don't." He denies hallucinations of any kind. Reason for continued inpatient treatment: The patient is at his baseline, but he is unable to care for himself. Will plan for a safe discharge once placement is secured. REVIEW OF SYSTEMS Constitutional: Negative for weight loss ENT: Negative for stridor Respiratory: Negative for cough or hemoptysis All other systems reviewed and are negative MENTAL STATUS EXAMINATION General Appearance: Dressed appropriately Behavior: Calm and, cooperative. Pleasant Mood: "okay" Affect and affective range: Congruent with stated mood Speech: Normal tone and pace Thought Process: Pleasantly confused Thought Content Suicidal Ideation: Denies Homicidal Ideation: Denies Hallucinations: Denies Delusions: None elicited Insight and Judgment: Limited insight and judgment Memory/Cognition: Impaired Assessment (1) Dementia with behavioral disturbance Current Visit: Yes Status: Acute Treatment Plan Patient will be admitted for inpatient psychiatric evaluation, medication adjustment and close monitoring The patient's behavior, mood, sleep and appetite will be closely monitored. Patient will be enrolled in individual and group therapeutic sessions and encouraged to attend. Patient will be provided with a safe and structured environment. Patient's physical health needs will be addressed by the Hospitalist. Hospitalist Consulted Labs including CBC, CMP, Lipid profile and Hemoglobin A1C ordered Social Assessment will be completed and the Referral Clerk will work with patient and family to ensure a suitable and safe disposition Medication adjustment will be made as clinically indicated No changes today Usual Wellness Spiritism/Preservation: - Start Trazodone 50 mg po QHS - Start Melatonin 5 mg po QHS to promote circadian rhythm The patient agreed on the treatment plan, understood the risk, benefit, alternative treatment, potential consequence of no treatment, and gave informed consent. Estimated period of time patient will need to remain in the hospital: [3] Plan for post-hospital care: [outpatient] Medications and Allergies Allergies Allergy/AdvReac Type Severity Reaction Status Date / Time No Known Allergies Allergy Verified 04/21/20 11:22 Home Medications Medication Instructions Recorded Confirmed Last Taken Type Melatonin [Melatonin 5MG CAP] 5 mg PO PRN PRN 04/22/20 04/22/20 2 Days Ago History ~04/20/20 5 mg Active Meds: Active Medications Fish Oil (Fish Oil) 2,000 mg PO BID [facility] Last Admin: 05/08/20 21:04 Dose: 2,000 mg Documented by: Melatonin (Melatonin) 5 mg PO QHS [facility] Last Admin: 05/08/20 21:04 Dose: 5 mg Documented by: Risperidone (Risperdal) 1 mg PO BID [facility] Last Admin: 05/08/20 21:04 Dose: 1 mg Documented by: Trazodone HCl (Desyrel) 50 mg PO QHS [facility] Last Admin: 05/08/20 21:04 Dose: 50 mg Documented by: Results - Results Labs/Vitals: Laboratory Last Values WBC 6.8 K/mm3 (4.5-11.0) 04/23/20 04:53 RBC 4.65 M/mm3 (3.65-5.03) 04/23/20 04:53 Hgb 14.2 gm/dl (11.8-15.2) 04/23/20 04:53 Hct 43.5 % (35.5-45.6) 04/23/20 04:53 MCV 94 fl (84-94) 04/23/20 04:53 MCH 31 pg (28-32) 04/23/20 04:53 MCHC 33 % (32-34) 04/23/20 04:53 RDW 13.7 % (13.2-15.2) 04/23/20 04:53 Plt Count 626 K/mm3 (140-440) H 04/23/20 04:53 [place] % (Auto) Political Scientist 04/23/20 04:53 Add Manual Diff Complete 04/23/20 04:53 Total Counted 100 04/23/20 04:53 Seg Neuts % (Manual) 75.0 % (40.0-70.0) H 04/23/20 04:53 Band Neutrophils % 0 % 04/23/20 04:53 Lymphocytes % (Manual) 11.0 % (13.4-35.0) L 04/23/20 04:53 Reactive Lymphs % (Man) 0 % 04/23/20 04:53 Monocytes % (Manual) 8.0 % (0.0-7.3) H 04/23/20 04:53 Eosinophils % (Manual) 6.0 % (0.0-4.3) H 04/23/20 04:53 Basophils % (Manual) 0 % (0.0-1.8) 04/23/20 04:53 Metamyelocytes % 0 % 04/23/20 04:53 Myelocytes % 0 % 04/23/20 04:53 Promyelocytes % 0 % 04/23/20 04:53 Blast Cells % 0 % 04/23/20 04:53 Nucleated RBC % Not Reportable 04/23/20 04:53 Seg Neutrophils # Man 5.1 K/mm3 (1.8-7.7) 04/23/20 04:53 Band Neutrophils # 0.0 K/mm3 04/23/20 04:53 Lymphocytes # (Manual) 0.7 K/mm3 (1.2-5.4) L 04/23/20 04:53 Abs React Lymphs (Man) 0.0 K/mm3 04/23/20 04:53 Monocytes # (Manual) 0.5 K/mm3 (0.0-0.8) 04/23/20 04:53 Eosinophils # (Manual) 0.4 K/mm3 (0.0-0.4) 04/23/20 04:53 Basophils # (Manual) 0.0 K/mm3 (0.0-0.1) 04/23/20 04:53 Metamyelocytes # 0.0 K/mm3 04/23/20 04:53 Myelocytes # 0.0 K/mm3 04/23/20 04:53 Promyelocytes # 0.0 K/mm3 04/23/20 04:53 Blast Cells # 0.0 K/mm3 04/23/20 04:53 WBC Morphology Not Reportable 04/23/20 04:53 Hypersegmented Neuts Not Reportable 04/23/20 04:53 Hyposegmented Neuts Not Reportable 04/23/20 04:53 Hypogranular Neuts Not Reportable 04/23/20 04:53 Smudge Cells Not Reportable 04/23/20 04:53 Toxic Granulation Not Reportable 04/23/20 04:53 Toxic Vacuolation Not Reportable 04/23/20 04:53 Dohle Bodies Not Reportable 04/23/20 04:53 Pelger-Huet Anomaly Not Reportable 04/23/20 04:53 Kyle Rods Not Reportable 04/23/20 04:53 Platelet Estimate Consistent w auto 04/23/20 04:53 Clumped Platelets Not Reportable 04/23/20 04:53 Plt Clumps, EDTA Not Reportable 04/23/20 04:53 Large Platelets Not Reportable 04/23/20 04:53 Giant Platelets Not Reportable 04/23/20 04:53 Platelet Satelliting Not Reportable 04/23/20 04:53 Plt Morphology Comment Not Reportable 04/23/20 04:53 RBC Morphology Not Reportable 04/23/20 04:53 Dimorphic RBCs Not Reportable 04/23/20 04:53 Polychromasia Not Reportable 04/23/20 04:53 Hypochromasia Not Reportable 04/23/20 04:53 Poikilocytosis Not Reportable 04/23/20 04:53 Anisocytosis 1+ 04/23/20 04:53 Microcytosis Not Reportable 04/23/20 04:53 Macrocytosis Not Reportable 04/23/20 04:53 Spherocytes Not Reportable 04/23/20 04:53 Pappenheimer Bodies Not Reportable 04/23/20 04:53 Sickle Cells Not Reportable 04/23/20 04:53 Target Cells Not Reportable 04/23/20 04:53 Tear Drop Cells Not Reportable 04/23/20 04:53 Ovalocytes Not Reportable 04/23/20 04:53 Helmet Cells Not Reportable 04/23/20 04:53 [place] Bodies Not Reportable 04/23/20 04:53 [place] Rings Not Reportable 04/23/20 04:53 Pablo Cells Not Reportable 04/23/20 04:53 Bite Cells Not Reportable 04/23/20 04:53 Crenated Cell Not Reportable 04/23/20 04:53 Elliptocytes Not Reportable 04/23/20 04:53 Acanthocytes (Spur) Not Reportable 04/23/20 04:53 Rouleaux Not Reportable 04/23/20 04:53 Hemoglobin C Crystals Not Reportable 04/23/20 04:53 Schistocytes Not Reportable 04/23/20 04:53 Malaria parasites Not Reportable 04/23/20 04:53 Willie Bodies Not Reportable 04/23/20 04:53 Hem Pathologist Commnt No 04/23/20 04:53 Sodium 140 mmol/L (137-145) 04/23/20 04:53 Potassium 4.6 mmol/L (3.6-5.0) 04/23/20 04:53 Chloride 106.0 mmol/L (98-107) 04/23/20 04:53 Carbon Dioxide 26 mmol/L (22-30) 04/23/20 04:53 Anion Gap 13 mmol/L 04/23/20 04:53 BUN 22 mg/dL (9-20) H 04/23/20 04:53 Creatinine 0.9 mg/dL (0.8-1.5) 04/23/20 04:53 Estimated GFR > 60 ml/min 04/23/20 04:53 BUN/Creatinine Ratio 24 % 04/23/20 04:53 Glucose 113 mg/dL (75-100) H 04/23/20 04:53 POC Glucose 108 (70-105) H 04/21/20 16:03 Hemoglobin A1c 5.4 % (4-6) 04/23/20 04:53 Calcium 8.9 mg/dL (8.4-10.2) 04/23/20 04:53 Total Bilirubin 0.60 mg/dL (0.1-1.2) 04/23/20 04:53 AST 15 units/L (5-40) 04/23/20 04:53 ALT 15 units/L (7-56) 04/23/20 04:53 Alkaline Phosphatase 50 units/L (35-129) 04/23/20 04:53 Total Protein 5.9 g/dL (6.3-8.2) L 04/23/20 04:53 Albumin 3.8 g/dL (3.9-5) L 04/23/20 04:53 Albumin/Globulin Ratio 1.8 % 04/23/20 04:53 Triglycerides 67 mg/dL (2-149) 04/23/20 04:53 Cholesterol 167 mg/dL (50-199) 04/23/20 04:53 LDL Cholesterol Direct 121 mg/dL (50-130) 04/23/20 04:53 HDL Cholesterol 45 mg/dL (40-59) 04/23/20 04:53 Cholesterol/HDL Ratio 3.71 % 04/23/20 04:53 TSH 2.490 mlU/mL (0.270-4.200) 04/23/20 04:53 Thyroxine (T4) 7.8 ug/dL (4.0-12.0) 04/23/20 04:53 Free T3 Index 3.3 pg/mL (2.3-4.2) 04/23/20 04:53 Coronavirus (PCR) Negative (Negative) 05/05/20 Unknown Last Vital Signs Temp 97.5 F L 05/09/20 06:55 Pulse 59 L 05/09/20 06:55 Resp 18 05/09/20 06:55 BP 137/85 05/09/20 06:55 Pulse Ox 100 05/09/20 06:55
[2020-05-09] MEDS: risperiDONE 1 MG TAB PO SCH ×2 (09:26→22:09)
[2020-05-09] MEDS: OMEGA-3 FATTY ACIDS/FISH OIL 1 GRAM CAP PO SCH ×2 (09:26→22:09)
[2020-05-09] MEDS: traZODone 50 MG TAB PO SCH (22:08)
[2020-05-09] MEDS: MELATONIN 5 MG TAB PO SCH (22:09)
--- NOTE | 2020-05-10 08:18 | Progress Note ---
Subjective Date of service: 05/10/20 Principal diagnosis: (1) Dementia with behavioral disturbance Subjective Comment: The patient's medical record was reviewed and the patient's progress was discussed with the nursing staff. During my interview with the patient this morning, he is lying in bed with his eyes closed. He arouses easily. He says he slept "good." She patient says his mood is "pretty good." The patient denies SI/HI or hallucinations of any kind. Reason for continued inpatient treatment: The patient is at his baseline, but he is unable to care for himself. Will plan for a safe discharge once placement is secured. REVIEW OF SYSTEMS Constitutional: Negative for weight loss ENT: Negative for stridor Respiratory: Negative for cough or hemoptysis All other systems reviewed and are negative MENTAL STATUS EXAMINATION General Appearance: Dressed appropriately Behavior: Calm and, cooperative. Pleasant Mood: "pretty good" Affect and affective range: Congruent with stated mood Speech: Normal tone and pace Thought Process: Pleasantly confused Thought Content Suicidal Ideation: Denies Homicidal Ideation: Denies Hallucinations: Denies Delusions: None elicited Insight and Judgment: Limited insight and judgment Memory/Cognition: Impaired Assessment (1) Dementia with behavioral disturbance Current Visit: Yes Status: Acute Treatment Plan Patient will be admitted for inpatient psychiatric evaluation, medication adjustment and close monitoring The patient's behavior, mood, sleep and appetite will be closely monitored. Patient will be enrolled in individual and group therapeutic sessions and encouraged to attend. Patient will be provided with a safe and structured environment. Patient's physical health needs will be addressed by the Hospitalist. Hospitalist Consulted Labs including CBC, CMP, Lipid profile and Hemoglobin A1C ordered Social Assessment will be completed and the Panel Wirer will work with patient and family to ensure a suitable and safe disposition Medication adjustment will be made as clinically indicated No changes today Usual Wellness Quaker/Preservation: - Start Trazodone 50 mg po QHS - Start Melatonin 5 mg po QHS to promote circadian rhythm The patient agreed on the treatment plan, understood the risk, benefit, alternative treatment, potential consequence of no treatment, and gave informed consent. Estimated period of time patient will need to remain in the hospital: [2] Plan for post-hospital care: [outpatient] Medications and Allergies Allergies Allergy/AdvReac Type Severity Reaction Status Date / Time No Known Allergies Allergy Verified 04/21/20 11:22 Home Medications Medication Instructions Recorded Confirmed Last Taken Type Melatonin [Melatonin 5MG CAP] 5 mg PO PRN PRN 04/22/20 04/22/20 2 Days Ago History ~04/20/20 5 mg Active Meds: Active Medications Fish Oil (Fish Oil) 2,000 mg PO BID [facility] Last Admin: 05/09/20 22:09 Dose: 2,000 mg Documented by: Melatonin (Melatonin) 5 mg PO QHS [facility] Last Admin: 05/09/20 22:09 Dose: 5 mg Documented by: Risperidone (Risperdal) 1 mg PO BID [facility] Last Admin: 05/09/20 22:09 Dose: 1 mg Documented by: Trazodone HCl (Desyrel) 50 mg PO QHS [facility] Last Admin: 05/09/20 22:08 Dose: 50 mg Documented by: Results - Results Labs/Vitals: Laboratory Last Values WBC 6.8 K/mm3 (4.5-11.0) 04/23/20 04:53 RBC 4.65 M/mm3 (3.65-5.03) 04/23/20 04:53 Hgb 14.2 gm/dl (11.8-15.2) 04/23/20 04:53 Hct 43.5 % (35.5-45.6) 04/23/20 04:53 MCV 94 fl (84-94) 04/23/20 04:53 MCH 31 pg (28-32) 04/23/20 04:53 MCHC 33 % (32-34) 04/23/20 04:53 RDW 13.7 % (13.2-15.2) 04/23/20 04:53 Plt Count 626 K/mm3 (140-440) H 04/23/20 04:53 [place] % (Auto) Cathode Maker 04/23/20 04:53 Add Manual Diff Complete 04/23/20 04:53 Total Counted 100 04/23/20 04:53 Seg Neuts % (Manual) 75.0 % (40.0-70.0) H 04/23/20 04:53 Band Neutrophils % 0 % 04/23/20 04:53 Lymphocytes % (Manual) 11.0 % (13.4-35.0) L 04/23/20 04:53 Reactive Lymphs % (Man) 0 % 04/23/20 04:53 Monocytes % (Manual) 8.0 % (0.0-7.3) H 04/23/20 04:53 Eosinophils % (Manual) 6.0 % (0.0-4.3) H 04/23/20 04:53 Basophils % (Manual) 0 % (0.0-1.8) 04/23/20 04:53 Metamyelocytes % 0 % 04/23/20 04:53 Myelocytes % 0 % 04/23/20 04:53 Promyelocytes % 0 % 04/23/20 04:53 Blast Cells % 0 % 04/23/20 04:53 Nucleated RBC % Not Reportable 04/23/20 04:53 Seg Neutrophils # Man 5.1 K/mm3 (1.8-7.7) 04/23/20 04:53 Band Neutrophils # 0.0 K/mm3 04/23/20 04:53 Lymphocytes # (Manual) 0.7 K/mm3 (1.2-5.4) L 04/23/20 04:53 Abs React Lymphs (Man) 0.0 K/mm3 04/23/20 04:53 Monocytes # (Manual) 0.5 K/mm3 (0.0-0.8) 04/23/20 04:53 Eosinophils # (Manual) 0.4 K/mm3 (0.0-0.4) 04/23/20 04:53 Basophils # (Manual) 0.0 K/mm3 (0.0-0.1) 04/23/20 04:53 Metamyelocytes # 0.0 K/mm3 04/23/20 04:53 Myelocytes # 0.0 K/mm3 04/23/20 04:53 Promyelocytes # 0.0 K/mm3 04/23/20 04:53 Blast Cells # 0.0 K/mm3 04/23/20 04:53 WBC Morphology Not Reportable 04/23/20 04:53 Hypersegmented Neuts Not Reportable 04/23/20 04:53 Hyposegmented Neuts Not Reportable 04/23/20 04:53 Hypogranular Neuts Not Reportable 04/23/20 04:53 Smudge Cells Not Reportable 04/23/20 04:53 Toxic Granulation Not Reportable 04/23/20 04:53 Toxic Vacuolation Not Reportable 04/23/20 04:53 Dohle Bodies Not Reportable 04/23/20 04:53 Pelger-Huet Anomaly Not Reportable 04/23/20 04:53 Kyle Rods Not Reportable 04/23/20 04:53 Platelet Estimate Consistent w auto 04/23/20 04:53 Clumped Platelets Not Reportable 04/23/20 04:53 Plt Clumps, EDTA Not Reportable 04/23/20 04:53 Large Platelets Not Reportable 04/23/20 04:53 Giant Platelets Not Reportable 04/23/20 04:53 Platelet Satelliting Not Reportable 04/23/20 04:53 Plt Morphology Comment Not Reportable 04/23/20 04:53 RBC Morphology Not Reportable 04/23/20 04:53 Dimorphic RBCs Not Reportable 04/23/20 04:53 Polychromasia Not Reportable 04/23/20 04:53 Hypochromasia Not Reportable 04/23/20 04:53 Poikilocytosis Not Reportable 04/23/20 04:53 Anisocytosis 1+ 04/23/20 04:53 Microcytosis Not Reportable 04/23/20 04:53 Macrocytosis Not Reportable 04/23/20 04:53 Spherocytes Not Reportable 04/23/20 04:53 Pappenheimer Bodies Not Reportable 04/23/20 04:53 Sickle Cells Not Reportable 04/23/20 04:53 Target Cells Not Reportable 04/23/20 04:53 Tear Drop Cells Not Reportable 04/23/20 04:53 Ovalocytes Not Reportable 04/23/20 04:53 Helmet Cells Not Reportable 04/23/20 04:53 [place]ry-[place] Bodies Not Reportable 04/23/20 04:53 [place] Rings Not Reportable 04/23/20 04:53 [place] Cells Not Reportable 04/23/20 04:53 Bite Cells Not Reportable 04/23/20 04:53 Crenated Cell Not Reportable 04/23/20 04:53 Elliptocytes Not Reportable 04/23/20 04:53 Acanthocytes (Spur) Not Reportable 04/23/20 04:53 Rouleaux Not Reportable 04/23/20 04:53 Hemoglobin C Crystals Not Reportable 04/23/20 04:53 Schistocytes Not Reportable 04/23/20 04:53 Malaria parasites Not Reportable 04/23/20 04:53 Willie Bodies Not Reportable 04/23/20 04:53 Hem Pathologist Commnt No 04/23/20 04:53 Sodium 140 mmol/L (137-145) 04/23/20 04:53 Potassium 4.6 mmol/L (3.6-5.0) 04/23/20 04:53 Chloride 106.0 mmol/L (98-107) 04/23/20 04:53 Carbon Dioxide 26 mmol/L (22-30) 04/23/20 04:53 Anion Gap 13 mmol/L 04/23/20 04:53 BUN 22 mg/dL (9-20) H 04/23/20 04:53 Creatinine 0.9 mg/dL (0.8-1.5) 04/23/20 04:53 Estimated GFR > 60 ml/min 04/23/20 04:53 BUN/Creatinine Ratio 24 % 04/23/20 04:53 Glucose 113 mg/dL (75-100) H 04/23/20 04:53 POC Glucose 108 (70-105) H 04/21/20 16:03 Hemoglobin A1c 5.4 % (4-6) 04/23/20 04:53 Calcium 8.9 mg/dL (8.4-10.2) 04/23/20 04:53 Total Bilirubin 0.60 mg/dL (0.1-1.2) 04/23/20 04:53 AST 15 units/L (5-40) 04/23/20 04:53 ALT 15 units/L (7-56) 04/23/20 04:53 Alkaline Phosphatase 50 units/L (35-129) 04/23/20 04:53 Total Protein 5.9 g/dL (6.3-8.2) L 04/23/20 04:53 Albumin 3.8 g/dL (3.9-5) L 04/23/20 04:53 Albumin/Globulin Ratio 1.8 % 04/23/20 04:53 Triglycerides 67 mg/dL (2-149) 04/23/20 04:53 Cholesterol 167 mg/dL (50-199) 04/23/20 04:53 LDL Cholesterol Direct 121 mg/dL (50-130) 04/23/20 04:53 HDL Cholesterol 45 mg/dL (40-59) 04/23/20 04:53 Cholesterol/HDL Ratio 3.71 % 04/23/20 04:53 TSH 2.490 mlU/mL (0.270-4.200) 04/23/20 04:53 Thyroxine (T4) 7.8 ug/dL (4.0-12.0) 04/23/20 04:53 Free T3 Index 3.3 pg/mL (2.3-4.2) 04/23/20 04:53 Coronavirus (PCR) Negative (Negative) 05/05/20 Unknown Last Vital Signs Temp 97.5 F L 05/10/20 06:47 Pulse 66 05/10/20 06:47 Resp 18 05/10/20 06:47 BP 155/75 05/10/20 06:47 Pulse Ox 98 05/10/20 06:47
[2020-05-10] MEDS: risperiDONE 1 MG TAB PO SCH ×2 (09:20→21:11)
[2020-05-10] MEDS: OMEGA-3 FATTY ACIDS/FISH OIL 1 GRAM CAP PO SCH ×2 (09:20→21:11)
[2020-05-10 20:30] VITALS: BP 144/71
[2020-05-10] MEDS: MELATONIN 5 MG TAB PO SCH (21:10)
[2020-05-10] MEDS: traZODone 50 MG TAB PO SCH (21:12)
--- NOTE | 2020-05-11 08:09 | Progress Note ---
Subjective Date of service: 05/11/20 Principal diagnosis: (1) Dementia with behavioral disturbance Subjective Comment: The patient's medical record was reviewed and the patient's progress was discussed with the nursing staff. During my interview with the patient this morning, he is walking around his room. He says, "I don't know what happened to my shoes." His is calm, cooperative and pleasant. He says his mood is "good." He denies SI/HI or hallucinations of any kind. Reason for continued inpatient treatment: The patient is at his baseline, but he is unable to care for himself. Will plan for a safe discharge once placement is secured. REVIEW OF SYSTEMS Constitutional: Negative for weight loss ENT: Negative for stridor Respiratory: Negative for cough or hemoptysis All other systems reviewed and are negative MENTAL STATUS EXAMINATION General Appearance: Dressed appropriately Behavior: Calm and, cooperative. Pleasant Mood: "good" Affect and affective range: Congruent with stated mood Speech: Normal tone and pace Thought Process: Pleasantly confused Thought Content Suicidal Ideation: Denies Homicidal Ideation: Denies Hallucinations: Denies Delusions: None elicited Insight and Judgment: Limited insight and judgment Memory/Cognition: Impaired Assessment (1) Dementia with behavioral disturbance Current Visit: Yes Status: Acute Treatment Plan Patient will be admitted for inpatient psychiatric evaluation, medication adjustment and close monitoring The patient's behavior, mood, sleep and appetite will be closely monitored. Patient will be enrolled in individual and group therapeutic sessions and encouraged to attend. Patient will be provided with a safe and structured environment. Patient's physical health needs will be addressed by the Hospitalist. Hospitalist Consulted Labs including CBC, CMP, Lipid profile and Hemoglobin A1C ordered Social Assessment will be completed and the Systems Integration Advisor will work with patient and family to ensure a suitable and safe disposition Medication adjustment will be made as clinically indicated No changes today Usual Wellness Worship/Preservation: - Start Trazodone 50 mg po QHS - Start Melatonin 5 mg po QHS to promote circadian rhythm The patient agreed on the treatment plan, understood the risk, benefit, alternative treatment, potential consequence of no treatment, and gave informed consent. Estimated period of time patient will need to remain in the hospital: [2] Plan for post-hospital care: [outpatient] Medications and Allergies Allergies Allergy/AdvReac Type Severity Reaction Status Date / Time No Known Allergies Allergy Verified 04/21/20 11:22 Home Medications Medication Instructions Recorded Confirmed Last Taken Type Melatonin [Melatonin 5MG CAP] 5 mg PO PRN PRN #30 cap 05/10/20 Unknown Rx risperiDONE [RisperDAL] 1 mg PO BID #60 tablet 05/10/20 Unknown Rx traZODone [Desyrel] 50 mg PO QHS #30 tablet 05/10/20 Unknown Rx Active Meds: Active Medications Fish Oil (Fish Oil) 2,000 mg PO BID [facility] Last Admin: 05/10/20 21:11 Dose: 2,000 mg Documented by: Melatonin (Melatonin) 5 mg PO QHS [facility] Last Admin: 05/10/20 21:10 Dose: 5 mg Documented by: Risperidone (Risperdal) 1 mg PO BID [facility] Last Admin: 05/10/20 21:11 Dose: 1 mg Documented by: Trazodone HCl (Desyrel) 50 mg PO QHS [facility] Last Admin: 05/10/20 21:12 Dose: 50 mg Documented by: Results - Results Labs/Vitals: Laboratory Last Values WBC 6.8 K/mm3 (4.5-11.0) 04/23/20 04:53 RBC 4.65 M/mm3 (3.65-5.03) 04/23/20 04:53 Hgb 14.2 gm/dl (11.8-15.2) 04/23/20 04:53 Hct 43.5 % (35.5-45.6) 04/23/20 04:53 MCV 94 fl (84-94) 04/23/20 04:53 MCH 31 pg (28-32) 04/23/20 04:53 MCHC 33 % (32-34) 04/23/20 04:53 RDW 13.7 % (13.2-15.2) 04/23/20 04:53 Plt Count 626 K/mm3 (140-440) H 04/23/20 04:53 [place] % (Auto) Prop Making Supervisor 04/23/20 04:53 Add Manual Diff Complete 04/23/20 04:53 Total Counted 100 04/23/20 04:53 Seg Neuts % (Manual) 75.0 % (40.0-70.0) H 04/23/20 04:53 Band Neutrophils % 0 % 04/23/20 04:53 Lymphocytes % (Manual) 11.0 % (13.4-35.0) L 04/23/20 04:53 Reactive Lymphs % (Man) 0 % 04/23/20 04:53 Monocytes % (Manual) 8.0 % (0.0-7.3) H 04/23/20 04:53 Eosinophils % (Manual) 6.0 % (0.0-4.3) H 04/23/20 04:53 Basophils % (Manual) 0 % (0.0-1.8) 04/23/20 04:53 Metamyelocytes % 0 % 04/23/20 04:53 Myelocytes % 0 % 04/23/20 04:53 Promyelocytes % 0 % 04/23/20 04:53 Blast Cells % 0 % 04/23/20 04:53 Nucleated RBC % Not Reportable 04/23/20 04:53 Seg Neutrophils # Man 5.1 K/mm3 (1.8-7.7) 04/23/20 04:53 Band Neutrophils # 0.0 K/mm3 04/23/20 04:53 Lymphocytes # (Manual) 0.7 K/mm3 (1.2-5.4) L 04/23/20 04:53 Abs React Lymphs (Man) 0.0 K/mm3 04/23/20 04:53 Monocytes # (Manual) 0.5 K/mm3 (0.0-0.8) 04/23/20 04:53 Eosinophils # (Manual) 0.4 K/mm3 (0.0-0.4) 04/23/20 04:53 Basophils # (Manual) 0.0 K/mm3 (0.0-0.1) 04/23/20 04:53 Metamyelocytes # 0.0 K/mm3 04/23/20 04:53 Myelocytes # 0.0 K/mm3 04/23/20 04:53 Promyelocytes # 0.0 K/mm3 04/23/20 04:53 Blast Cells # 0.0 K/mm3 04/23/20 04:53 WBC Morphology Not Reportable 04/23/20 04:53 Hypersegmented Neuts Not Reportable 04/23/20 04:53 Hyposegmented Neuts Not Reportable 04/23/20 04:53 Hypogranular Neuts Not Reportable 04/23/20 04:53 Smudge Cells Not Reportable 04/23/20 04:53 Toxic Granulation Not Reportable 04/23/20 04:53 Toxic Vacuolation Not Reportable 04/23/20 04:53 Dohle Bodies Not Reportable 04/23/20 04:53 Pelger-Huet Anomaly Not Reportable 04/23/20 04:53 Kyle Rods Not Reportable 04/23/20 04:53 Platelet Estimate Consistent w auto 04/23/20 04:53 Clumped Platelets Not Reportable 04/23/20 04:53 Plt Clumps, EDTA Not Reportable 04/23/20 04:53 Large Platelets Not Reportable 04/23/20 04:53 Giant Platelets Not Reportable 04/23/20 04:53 Platelet Satelliting Not Reportable 04/23/20 04:53 Plt Morphology Comment Not Reportable 04/23/20 04:53 RBC Morphology Not Reportable 04/23/20 04:53 Dimorphic RBCs Not Reportable 04/23/20 04:53 Polychromasia Not Reportable 04/23/20 04:53 Hypochromasia Not Reportable 04/23/20 04:53 Poikilocytosis Not Reportable 04/23/20 04:53 Anisocytosis 1+ 04/23/20 04:53 Microcytosis Not Reportable 04/23/20 04:53 Macrocytosis Not Reportable 04/23/20 04:53 Spherocytes Not Reportable 04/23/20 04:53 Pappenheimer Bodies Not Reportable 04/23/20 04:53 Sickle Cells Not Reportable 04/23/20 04:53 Target Cells Not Reportable 04/23/20 04:53 Tear Drop Cells Not Reportable 04/23/20 04:53 Ovalocytes Not Reportable 04/23/20 04:53 Helmet Cells Not Reportable 04/23/20 04:53 Mcgarry-[place] Bodies Not Reportable 04/23/20 04:53 [place] Rings Not Reportable 04/23/20 04:53 [place] Cells Not Reportable 04/23/20 04:53 Bite Cells Not Reportable 04/23/20 04:53 Crenated Cell Not Reportable 04/23/20 04:53 Elliptocytes Not Reportable 04/23/20 04:53 Acanthocytes (Spur) Not Reportable 04/23/20 04:53 Rouleaux Not Reportable 04/23/20 04:53 Hemoglobin C Crystals Not Reportable 04/23/20 04:53 Schistocytes Not Reportable 04/23/20 04:53 Malaria parasites Not Reportable 04/23/20 04:53 Willie Bodies Not Reportable 04/23/20 04:53 Hem Pathologist Commnt No 04/23/20 04:53 Sodium 140 mmol/L (137-145) 04/23/20 04:53 Potassium 4.6 mmol/L (3.6-5.0) 04/23/20 04:53 Chloride 106.0 mmol/L (98-107) 04/23/20 04:53 Carbon Dioxide 26 mmol/L (22-30) 04/23/20 04:53 Anion Gap 13 mmol/L 04/23/20 04:53 BUN 22 mg/dL (9-20) H 04/23/20 04:53 Creatinine 0.9 mg/dL (0.8-1.5) 04/23/20 04:53 Estimated GFR > 60 ml/min 04/23/20 04:53 BUN/Creatinine Ratio 24 % 04/23/20 04:53 Glucose 113 mg/dL (75-100) H 04/23/20 04:53 POC Glucose 108 (70-105) H 04/21/20 16:03 Hemoglobin A1c 5.4 % (4-6) 04/23/20 04:53 Calcium 8.9 mg/dL (8.4-10.2) 04/23/20 04:53 Total Bilirubin 0.60 mg/dL (0.1-1.2) 04/23/20 04:53 AST 15 units/L (5-40) 04/23/20 04:53 ALT 15 units/L (7-56) 04/23/20 04:53 Alkaline Phosphatase 50 units/L (35-129) 04/23/20 04:53 Total Protein 5.9 g/dL (6.3-8.2) L 04/23/20 04:53 Albumin 3.8 g/dL (3.9-5) L 04/23/20 04:53 Albumin/Globulin Ratio 1.8 % 04/23/20 04:53 Triglycerides 67 mg/dL (2-149) 04/23/20 04:53 Cholesterol 167 mg/dL (50-199) 04/23/20 04:53 LDL Cholesterol Direct 121 mg/dL (50-130) 04/23/20 04:53 HDL Cholesterol 45 mg/dL (40-59) 04/23/20 04:53 Cholesterol/HDL Ratio 3.71 % 04/23/20 04:53 TSH 2.490 mlU/mL (0.270-4.200) 04/23/20 04:53 Thyroxine (T4) 7.8 ug/dL (4.0-12.0) 04/23/20 04:53 Free T3 Index 3.3 pg/mL (2.3-4.2) 04/23/20 04:53 Coronavirus (PCR) Negative (Negative) 05/05/20 Unknown Last Vital Signs Temp 98.1 F 05/10/20 18:39 Pulse 74 05/10/20 18:39 Resp 18 05/10/20 18:39 BP 144/71 05/10/20 18:39 Pulse Ox 98 05/10/20 18:39
--- NOTE | 2020-05-11 08:25 | Discharge Summary ---
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 The patient's mood, cognition, behavior, moral support are improved and stabilized. St the time of discharge, the patient had no endangering behavior and no debilitating adverse effects. The patient agreed on potential consequences of no treatment and gave informed consent. Disposition: [place]-[facility] Time spent for discharge: 36 Allergies/Adverse Reactions: Allergies No Known Allergies Allergy (Verified 04/21/20 11:22) Vital Signs: Last Vital Signs Temp 98.1 F 05/10/20 18:39 Pulse 74 05/10/20 18:39 Resp 18 05/10/20 18:39 BP 144/71 05/10/20 18:39 Pulse Ox 98 05/10/20 18:39 Last Lab: Laboratory Last Values WBC 6.8 K/mm3 (4.5-11.0) 04/23/20 04:53 RBC 4.65 M/mm3 (3.65-5.03) 04/23/20 04:53 Hgb 14.2 gm/dl (11.8-15.2) 04/23/20 04:53 Hct 43.5 % (35.5-45.6) 04/23/20 04:53 MCV 94 fl (84-94) 04/23/20 04:53 MCH 31 pg (28-32) 04/23/20 04:53 MCHC 33 % (32-34) 04/23/20 04:53 RDW 13.7 % (13.2-15.2) 04/23/20 04:53 Plt Count 626 K/mm3 (140-440) H 04/23/20 04:53 [place] % (Auto) Foam Gun Operator 04/23/20 04:53 Add Manual Diff Complete 04/23/20 04:53 Total Counted 100 04/23/20 04:53 Seg Neuts % (Manual) 75.0 % (40.0-70.0) H 04/23/20 04:53 Band Neutrophils % 0 % 04/23/20 04:53 Lymphocytes % (Manual) 11.0 % (13.4-35.0) L 04/23/20 04:53 Reactive Lymphs % (Man) 0 % 04/23/20 04:53 Monocytes % (Manual) 8.0 % (0.0-7.3) H 04/23/20 04:53 Eosinophils % (Manual) 6.0 % (0.0-4.3) H 04/23/20 04:53 Basophils % (Manual) 0 % (0.0-1.8) 04/23/20 04:53 Metamyelocytes % 0 % 04/23/20 04:53 Myelocytes % 0 % 04/23/20 04:53 Promyelocytes % 0 % 04/23/20 04:53 Blast Cells % 0 % 04/23/20 04:53 Nucleated RBC % Not Reportable 04/23/20 04:53 Seg Neutrophils # Man 5.1 K/mm3 (1.8-7.7) 04/23/20 04:53 Band Neutrophils # 0.0 K/mm3 04/23/20 04:53 Lymphocytes # (Manual) 0.7 K/mm3 (1.2-5.4) L 04/23/20 04:53 Abs React Lymphs (Man) 0.0 K/mm3 04/23/20 04:53 Monocytes # (Manual) 0.5 K/mm3 (0.0-0.8) 04/23/20 04:53 Eosinophils # (Manual) 0.4 K/mm3 (0.0-0.4) 04/23/20 04:53 Basophils # (Manual) 0.0 K/mm3 (0.0-0.1) 04/23/20 04:53 Metamyelocytes # 0.0 K/mm3 04/23/20 04:53 Myelocytes # 0.0 K/mm3 04/23/20 04:53 Promyelocytes # 0.0 K/mm3 04/23/20 04:53 Blast Cells # 0.0 K/mm3 04/23/20 04:53 WBC Morphology Not Reportable 04/23/20 04:53 Hypersegmented Neuts Not Reportable 04/23/20 04:53 Hyposegmented Neuts Not Reportable 04/23/20 04:53 Hypogranular Neuts Not Reportable 04/23/20 04:53 Smudge Cells Not Reportable 04/23/20 04:53 Toxic Granulation Not Reportable 04/23/20 04:53 Toxic Vacuolation Not Reportable 04/23/20 04:53 Dohle Bodies Not Reportable 04/23/20 04:53 Pelger-Huet Anomaly Not Reportable 04/23/20 04:53 Kyle Rods Not Reportable 04/23/20 04:53 Platelet Estimate Consistent w auto 04/23/20 04:53 Clumped Platelets Not Reportable 04/23/20 04:53 Plt Clumps, EDTA Not Reportable 04/23/20 04:53 Large Platelets Not Reportable 04/23/20 04:53 Giant Platelets Not Reportable 04/23/20 04:53 Platelet Satelliting Not Reportable 04/23/20 04:53 Plt Morphology Comment Not Reportable 04/23/20 04:53 RBC Morphology Not Reportable 04/23/20 04:53 Dimorphic RBCs Not Reportable 04/23/20 04:53 Polychromasia Not Reportable 04/23/20 04:53 Hypochromasia Not Reportable 04/23/20 04:53 Poikilocytosis Not Reportable 04/23/20 04:53 Anisocytosis 1+ 04/23/20 04:53 Microcytosis Not Reportable 04/23/20 04:53 Macrocytosis Not Reportable 04/23/20 04:53 Spherocytes Not Reportable 04/23/20 04:53 Pappenheimer Bodies Not Reportable 04/23/20 04:53 Sickle Cells Not Reportable 04/23/20 04:53 Target Cells Not Reportable 04/23/20 04:53 Tear Drop Cells Not Reportable 04/23/20 04:53 Ovalocytes Not Reportable 04/23/20 04:53 Helmet Cells Not Reportable 04/23/20 04:53 [place] Bodies Not Reportable 04/23/20 04:53 [place] Rings Not Reportable 04/23/20 04:53 Pablo Cells Not Reportable 04/23/20 04:53 Bite Cells Not Reportable 04/23/20 04:53 Crenated Cell Not Reportable 04/23/20 04:53 Elliptocytes Not Reportable 04/23/20 04:53 Acanthocytes (Spur) Not Reportable 04/23/20 04:53 Rouleaux Not Reportable 04/23/20 04:53 Hemoglobin C Crystals Not Reportable 04/23/20 04:53 Schistocytes Not Reportable 04/23/20 04:53 Malaria parasites Not Reportable 04/23/20 04:53 Willie Bodies Not Reportable 04/23/20 04:53 Hem Pathologist Commnt No 04/23/20 04:53 Sodium 140 mmol/L (137-145) 04/23/20 04:53 Potassium 4.6 mmol/L (3.6-5.0) 04/23/20 04:53 Chloride 106.0 mmol/L (98-107) 04/23/20 04:53 Carbon Dioxide 26 mmol/L (22-30) 04/23/20 04:53 Anion Gap 13 mmol/L 04/23/20 04:53 BUN 22 mg/dL (9-20) H 04/23/20 04:53 Creatinine 0.9 mg/dL (0.8-1.5) 04/23/20 04:53 Estimated GFR > 60 ml/min 04/23/20 04:53 BUN/Creatinine Ratio 24 % 04/23/20 04:53 Glucose 113 mg/dL (75-100) H 04/23/20 04:53 POC Glucose 108 (70-105) H 04/21/20 16:03 Hemoglobin A1c 5.4 % (4-6) 04/23/20 04:53 Calcium 8.9 mg/dL (8.4-10.2) 04/23/20 04:53 Total Bilirubin 0.60 mg/dL (0.1-1.2) 04/23/20 04:53 AST 15 units/L (5-40) 04/23/20 04:53 ALT 15 units/L (7-56) 04/23/20 04:53 Alkaline Phosphatase 50 units/L (35-129) 04/23/20 04:53 Total Protein 5.9 g/dL (6.3-8.2) L 04/23/20 04:53 Albumin 3.8 g/dL (3.9-5) L 04/23/20 04:53 Albumin/Globulin Ratio 1.8 % 04/23/20 04:53 Triglycerides 67 mg/dL (2-149) 04/23/20 04:53 Cholesterol 167 mg/dL (50-199) 04/23/20 04:53 LDL Cholesterol Direct 121 mg/dL (50-130) 04/23/20 04:53 HDL Cholesterol 45 mg/dL (40-59) 04/23/20 04:53 Cholesterol/HDL Ratio 3.71 % 04/23/20 04:53 TSH 2.490 mlU/mL (0.270-4.200) 04/23/20 04:53 Thyroxine (T4) 7.8 ug/dL (4.0-12.0) 04/23/20 04:53 Free T3 Index 3.3 pg/mL (2.3-4.2) 04/23/20 04:53 Coronavirus (PCR) Negative (Negative) 05/05/20 Unknown Core Measure Documentation - Palliative Care Palliative Care/ Comfort Measures: Not Applicable - Core Measures Any of the following diagnoses?: none Exam - Constitutional Vitals: Temp Pulse Resp BP Pulse Ox 98.1 F 74 18 144/71 98 05/10/20 18:39 05/10/20 18:39 05/10/20 18:39 05/10/20 18:39 05/10/20 18:39 General appearance: Present: no acute distress - EENT Eyes: Present: PERRL, EOM intact ENT: hearing intact, clear oral mucosa, dentition normal - Neck Neck: Present: supple, normal ROM - Respiratory Respiratory effort: normal Plan Activity: advance as tolerated Weight Bearing Status: Weight Bear as Tolerated Follow up with: PRIMARY CARE, [Primary Care Provider] - 7 Days Prescriptions: traZODone [Desyrel] 50 mg PO QHS #30 tablet Melatonin [Melatonin 5MG CAP] 5 mg PO PRN PRN #30 cap PRN Reason: Sleep risperiDONE [RisperDAL] 1 mg PO BID #60 tablet
[2020-05-11] MEDS: risperiDONE 1 MG TAB PO SCH (09:48)
[2020-05-11] MEDS: OMEGA-3 FATTY ACIDS/FISH OIL 1 GRAM CAP PO SCH (09:48)
== END 2020-05-11 12:42 | disposition home or self-care (01) | DRG 884 ==
LOC: UNDOADMIN 10:57 → 3A 10:57 → 5A 15:15
PROVIDERS: ADMIT Psychiatry & Neurology Psychiatry; ATTEND Psychiatry & Neurology Psychiatry
DX: F03.91 Unspecified dementia, unspecified severity, with behavioral disturbance (principal); Z91.5 Personal history of self-harm
CPT/HCPCS: 36415; 71045; 80053; 80061; 82962; 83036; 84436; 84443; 84481; 85007; 85025; G0378; U0003-CS